=== PATIENT | male | born 1965 | race Caucasian/White ===

== ENCOUNTER 2017-03-03 21:11 | Emergency (ER) | payer OTHER ==
[~2017-03-03] VITALS: Ht 170.2 cm; Wt 96.2 kg
[~2017-03-03 21:11] MED LIST: CARVEDILOL12.5 MG PO; CLINDAMYCIN HC300 MG PO; GUAIATUSSIN AC10 ML PO; IPRAT-ALBUT 0.5-3 ML INH; LOSARTAN-HCTZ1 EAC1 PO; MELOXICAM15 MG PO; METOPROLOL SUCC25 MG PO; NORCO 5-325 TA1 EACH PO; NORVASC2.5 MG PO; TYLENOL WITH C1 EACH PO
[2017-03-03] MEDS ORDERED: LISINOPRIL20 MG PO (21:24)
[2017-03-03] MEDS ORDERED: CHANTIX1 MG PO (21:25)
--- OUTSIDE RECORDS SUMMARY | 2017-03-03 22:31 | XMS ---
Demographics + + + | Address | [address] | | | [place] [address] | + + + | Preferred Language | Unknown | + + + | Marital Status | Unknown | + + + | Anabaptism Affiliation | Unknown | + + + | Race | Unknown | + + + | Ethnic Group | Unknown | + + + Author + + + | Author | [facility] | + + + | Organization | [facility] | + + + | Address | [address] | | | [place] [address] | + + + | Phone | | + + + Care Team Providers + + + + | Care Sound Mixer Name | Role | Phone | + + + + Unavailable | Unavailable | + + + + PROBLEMS +---------+ + + +--------+ + + | Type | Condition | ICD9-CM | [id number] | Onset | Condition | SNOMED | | | | Code | Code | Dates | Status | Code | +---------+ + + +--------+ + + | Problem | Hypertensi | 401.9 | | | Active | [id number] | | | on | | | | | | +---------+ + + +--------+ + + | Problem | Hypertensi | | I10 | | Active | 32029429 | | | on | | | | | | +---------+ + + +--------+ + + | Problem | Radiculopa | 723.4 | | | Active | 67021441 | | | thy | | | | | | | | affecting | | | | | | | | upper | | | | | | | | extremity | | | | | | +---------+ + + +--------+ + + | Problem | Influenza | 487.1 | | | Active | 0473123 | +---------+ + + +--------+ + + | Problem | Tobacco | 305.1 | | | Active | 651178639 | | | use | | | | | | | | disorder | | | | | | +---------+ + + +--------+ + + | Problem | Torticolli | 723.5 | | | Active | 73140480 | | | s | | | | | | +---------+ + + +--------+ + + | Problem | Hyperlipid | 272.4 | | | Active | 16703883 | | | emia | | | | | | +---------+ + + +--------+ + + ALLERGIES No Information SOCIAL HISTORY Never Assessed PLAN OF CARE VITAL SIGNS MEDICATIONS Unknown Medications RESULTS No Results PROCEDURES No Known procedures IMMUNIZATIONS No Known Immunizations MEDICAL (GENERAL) HISTORY + + +---------+ | Type | Description | Date | + + +---------+ | Medical History | The past medical history of | | | | this patient is very | | | | benign. He denies any major | | | | diseases. He states that | | | | he does not have any | | | | diabetes. He does not have | | | | any thyroid problems. He | | | | said that he is in | | | | excellent health. He is not | | | | taking any medication and | | | | he denies any allergies. 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 | | | | at one time he was on | | | | significantly higher doses | | | | after the fracture he also | | | | has a significant carpal | | | | tunnel syndrome but he is | | | | not ready at this point | | | | economically to surgery has | | | | hypertension and | | | | well-controlled on | | | | medication no cardiac or | | | | prior respiratory problems | | | | and he still smokes | | | | significantly we worked on | | | | it several times and he is | | | | working on a plan to try to | | | | quit smoking the ankle | | | | injury in stable MRI has | | | | been evaluated it's not | | | | going to change and the | | | | need for narcotics is not | | | | going to change especially | | | | 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
--- OUTSIDE RECORDS SUMMARY | 2017-03-03 22:31 | XMS ---
Demographics + + + | Address | [address] | | | [place] [address] | + + + | Preferred Language | Unknown | + + + | Marital Status | Unknown | + + + | Religion Affiliation | Unknown | + + + | Race | Unknown | + + + | Ethnic Group | Unknown | + + + Author + + + | Author | [facility] | + + + | Organization | [facility] | + + + | Address | [address] | | | [place] [address] | + + + | Phone | | + + + Care Team Providers + + + + | Care Air Compressor Mechanic Name | Role | Phone | + + + + Unavailable | Unavailable | + + + + PROBLEMS +---------+ + + +--------+ + + | Type | Condition | ICD9-CM | [id number] | Onset | Condition | SNOMED | | | | Code | Code | Dates | Status | Code | +---------+ + + +--------+ + + | Problem | Hypertensi | 401.9 | | | Active | [id number] | | | on | | | | | | +---------+ + + +--------+ + + | Problem | Hypertensi | | I10 | | Active | 95962414 | | | on | | | | | | +---------+ + + +--------+ + + | Problem | Radiculopa | 723.4 | | | Active | 58819167 | | | thy | | | | | | | | affecting | | | | | | | | upper | | | | | | | | extremity | | | | | | +---------+ + + +--------+ + + | Problem | Influenza | 487.1 | | | Active | 7517416 | +---------+ + + +--------+ + + | Problem | Tobacco | 305.1 | | | Active | 460791293 | | | use | | | | | | | | disorder | | | | | | +---------+ + + +--------+ + + | Problem | Torticolli | 723.5 | | | Active | 46463544 | | | s | | | | | | +---------+ + + +--------+ + + | Problem | Hyperlipid | 272.4 | | | Active | 04048143 | | | emia | | | | | | +---------+ + + +--------+ + + ALLERGIES + + + + +--------+ | Substance | Reaction | Event Type | Date | Status | + + + + +--------+ | Atorvastatin | hands hurt | Drug Allergy | Nov, | Active | | Calcium | | | | | + + + + +--------+ | Aspirin | hives | Drug Allergy | Nov, | Active | + + + + +--------+ SOCIAL HISTORY No smoking Hx information available PLAN OF CARE + +---------+ | Activity | Details | + +---------+ +---+ | | +---+ + + + | Follow Up | 4 Weeks Reason:null | + + + VITAL SIGNS + + + + | Height | 67 in | 2016-12-08 | + + + + | Weight | 207.8 lbs | 2016-12-08 | + + + + | BMI | 32.54 kg/m2 | 2016-12-08 | + + + + | Temperature | 97.1 degrees Fahrenheit | 2016-12-08 | + + + + | Heart Rate | 76 /min | 2016-12-08 | + + + + | Blood pressure systolic | 124 mm Hg | 2016-12-08 | + + + + | Blood pressure diastolic | 75 mm Hg | 2016-12-08 | + + + + MEDICATIONS + + + + + + + +--------+ | Medicati | Instruct | Dosage | Frequenc | Start | End Date | Duration | Status | | on | ions | | y | Date | | | | + + + + + + + +--------+ | Lisinopr | Orally | 1 tablet | 24h | 10 Feb, | | 30 | Active | | il 40 MG | Once a | | | 2017 | | day(s) | | | | day | | | | | | | + + + + + + + +--------+ | Meloxica | | take 1 | | | | 30 | Active | | m 15 MG | | tablet | | | | | | | | | by mouth | | | | | | | | | once | | | | | | | | | daily | | | | | | + + + + + + + +--------+ | Tylenol | Orally | 1 or 2 | | 20 Ricardo, | | 30 | Active | | with | hs | tabs | | 2015 | | | | | Codeine | | | | | | | | | #3 | | | | | | | | | 300-30 | | | | | | | | | MG | | | | | | | | + + + + + + + +--------+ | Metoprol | Orally | 1 tab(s) | 12h | 10 Jun, | | 30 | Active | | ol | bid | | | 2016 | | day(s) | | | Tartrate | | | | | | | | | 50 MG | | | | | | | | + + + + + + + +--------+ RESULTS No Results PROCEDURES + + + + + | Procedure | Date Ordered | Related Diagnosis | Body Site | + + + + + | Est Level II | December 08, 2016 | | | | Limited | | | | + + + + + IMMUNIZATIONS No Known Immunizations"
--- OUTSIDE RECORDS SUMMARY | 2017-03-03 22:31 | XMS ---
Demographics + + + | Address | [address] | | | [place] [address] | + + + | Preferred Language | Unknown | + + + | Marital Status | Unknown | + + + | Christianity Affiliation | Unknown | + + + | Race | Unknown | + + + | Ethnic Group | Unknown | + + + Author + + + | Author | [facility] | + + + | Organization | [facility] | + + + | Address | [address] | | | [place] [address] | + + + | Phone | | + + + Care Team Providers + + + + | Care Business Rules Analyst Name | Role | Phone | + + + + Unavailable | Unavailable | + + + + PROBLEMS +---------+ + + +--------+ + + | Type | Condition | ICD9-CM | [id number] | Onset | Condition | SNOMED | | | | Code | Code | Dates | Status | Code | +---------+ + + +--------+ + + | Problem | Hypertensi | 401.9 | | | Active | [id number] | | | on | | | | | | +---------+ + + +--------+ + + | Problem | Hypertensi | | I10 | | Active | 76411495 | | | on | | | | | | +---------+ + + +--------+ + + | Problem | Radiculopa | 723.4 | | | Active | 04046288 | | | thy | | | | | | | | affecting | | | | | | | | upper | | | | | | | | extremity | | | | | | +---------+ + + +--------+ + + | Problem | Influenza | 487.1 | | | Active | 3579969 | +---------+ + + +--------+ + + | Problem | Tobacco | 305.1 | | | Active | 318235009 | | | use | | | | | | | | disorder | | | | | | +---------+ + + +--------+ + + | Problem | Torticolli | 723.5 | | | Active | 64809475 | | | s | | | | | | +---------+ + + +--------+ + + | Problem | Hyperlipid | 272.4 | | | Active | 57115231 | | | emia | | | | | | +---------+ + + +--------+ + + ALLERGIES + + + + +--------+ | Substance | Reaction | Event Type | Date | Status | + + + + +--------+ | Atorvastatin | hands hurt | Drug Allergy | Dec, | Active | | Calcium | | | | | + + + + +--------+ | Aspirin | hives | Drug Allergy | Dec, | Active | + + + + +--------+ SOCIAL HISTORY No smoking Hx information available PLAN OF CARE + +---------+ | Activity | Details | + +---------+ +---+ | | +---+ + + + | Follow Up | 3 Months Reason:null | + + + VITAL SIGNS + + + + | Height | 67 in | 2017-01-04 | + + + + | Weight | 209.4 lbs | 2017-01-04 | + + + + | BMI | 32.79 kg/m2 | 2017-01-04 | + + + + | Temperature | 98.4 degrees Fahrenheit | 2017-01-04 | + + + + | Heart Rate | 90 /min | 2017-01-04 | + + + + | Blood pressure systolic | 96 mm Hg | 2017-01-04 | + + + + | Blood pressure diastolic | 68 mm Hg | 2017-01-04 | + + + + MEDICATIONS + + + + + + + +--------+ | Medicati | Instruct | Dosage | Frequenc | Start | End Date | Duration | Status | | on | ions | | y | Date | | | | + + + + + + + +--------+ | Chantix | Orally | 1 q day | | Dec, | | 30 | Active | | Starting | as | x 15 | | 2016 | | | | | Month | directed | then 1 | | | | | | | Robert 0.5 | | bid | | | | | | | MG X 11 | | | | | | | | | & 1 MG X | | | | | | | | | 42 | | | | | | | | + + + + + + + +--------+ | Tylenol | Orally | 1 or 2 | | 20 Nov, | | 30 | Active | | [...] | 1 tab(s) | 12h | 10 Feb, | | 30 | Active | | ol | bid | | | 2017 | | day(s) | | | Tartrate | | | | | | | | | 50 MG | | | | | | | | + + + + + + + +--------+ | Meloxica | po q day | take 1 | | | | [...] | 30 | Active | | il 20 MG | Once a | | | 2017 | | | | | | day | | | | | | | + + + + + + + +--------+ RESULTS No Results PROCEDURES No Known procedures IMMUNIZATIONS No Known Immunizations"
--- OUTSIDE RECORDS SUMMARY | 2017-03-03 22:31 | XMS ---
Demographics + + + | Address | [address] | | | [place] [address] | + + + | Preferred Language | Unknown | + + + | Marital Status | Unknown | + + + | Taoist Affiliation | Unknown | + + + | Race | Unknown | + + + | Ethnic Group | Unknown | + + + Author + + + | Author | [facility] | + + + | Organization | [facility] | + + + | Address | [address] | | | [place] [address] | + + + | Phone | | + + + Care Team Providers + + + + | Care Director Cardiac Name | Role | Phone | + + + + Unavailable | Unavailable | + + + + PROBLEMS +---------+ + + +--------+ + + | Type | Condition | ICD9-CM | [id number] | Onset | Condition | SNOMED | | | | Code | Code | Dates | Status | Code | +---------+ + + +--------+ + + | Problem | Hypertensi | 401.9 | | | Active | 48538463 | | | on | | | | | | +---------+ + + +--------+ + + | Problem | Hypertensi | | I10 | | Active | 36145315 | | | on | | | | | | +---------+ + + +--------+ + + | Problem | Radiculopa | 723.4 | | | Active | 38543119 | | | thy | | | | | | | | affecting | | | | | | | | upper | | | | | | | | extremity | | | | | | +---------+ + + +--------+ + + | Problem | Influenza | 487.1 | | | Active | 4263457 | +---------+ + + +--------+ + + | Problem | Tobacco | 305.1 | | | Active | 951322534 | | | use | | | | | | | | disorder | | | | | | +---------+ + + +--------+ + + | Problem | Torticolli | 723.5 | | | Active | 62581370 | | | s | | | | | | +---------+ + + +--------+ + + | Problem | Hyperlipid | 272.4 | | | Active | 39684894 | | | emia | | | [...] | | | been restricted to 30 Peak | | | | a month one [...]
--- OUTSIDE RECORDS SUMMARY | 2017-03-03 22:31 | XMS ---
Demographics + + + | Address | [address] | | | [place] [address] | + + + | Preferred Language | Unknown | + + + | Marital Status | Unknown | + + + | Denominational Affiliation | Unknown | + + + | Race | Unknown | + + + | Ethnic Group | Unknown | + + + Author + + + | Author | [facility] | + + + | Organization | [facility] | + + + | Address | [address] | | | [place] [address] | + + + | Phone | | + + + Care Team Providers + + + + | Care Software Technician Name | Role | Phone | + + + + Unavailable | Unavailable | + + + + PROBLEMS +---------+ + + +--------+ + + | Type | Condition | ICD9-CM | [id number] | Onset | Condition | SNOMED | | | | Code | Code | Dates | Status | Code | +---------+ + + +--------+ + + | Problem | Hypertensi | 401.9 | | | Active | 17560740 | | | on | | | | | | +---------+ + + +--------+ + + | Problem | Hypertensi | | I10 | | Active | 22664451 | | | on | | | | | | +---------+ + + +--------+ + + | Problem | Radiculopa | 723.4 | | | Active | 85515184 | | | thy | | | | | | | | affecting | | | | | | | | upper | | | | | | | | extremity | | | | | | +---------+ + + +--------+ + + | Problem | Influenza | 487.1 | | | Active | 0114858 | +---------+ + + +--------+ + + | Problem | Tobacco | 305.1 | | | Active | 093683724 | | | use | | | | | | | | disorder | | | | | | +---------+ + + +--------+ + + | Problem | Torticolli | 723.5 | | | Active | 91683039 | | | s | | | | | | +---------+ + + +--------+ + + | Problem | Hyperlipid | 272.4 | | | Active | 90309198 | | | emia | | | | | | +---------+ + + +--------+ + + ALLERGIES + + + + +--------+ | Substance | Reaction | Event Type | Date | Status | + + + + +--------+ | Atorvastatin | hands hurt | Drug Allergy | Oct, | Active | | Calcium | | | | | + + + + +--------+ | Aspirin | hives | Drug Allergy | Oct, | Active | + + + + +--------+ SOCIAL HISTORY No smoking Hx information available PLAN OF CARE + +---------+ | Activity | Details | + +---------+ +---+ | | +---+ + + + | Follow Up | 4 Weeks Reason:null | + + + VITAL SIGNS + + + + | Height | 67 in | 2016-11-08 | + + + + | Weight | 210.2 lbs | 2016-11-08 | + + + + | BMI | 32.92 kg/m2 | 2016-11-08 | + + + + | Temperature | 98.5 degrees Fahrenheit | 2016-11-08 | + + + + | Heart Rate | 62 /min | 2016-11-08 | + + + + | Blood pressure systolic | 147 mm Hg | 2016-11-08 | + + + + | Blood pressure diastolic | 83 mm Hg | 2016-11-08 | + + + + MEDICATIONS + [...] + + + + + +--------+ | Nebulize | | | | | | | Active | | r | | | | | | | [...]
--- OUTSIDE RECORDS SUMMARY | 2017-03-03 22:31 | XMS ---
Demographics + + + | Address | [address] | | | [place] [address] | + + + | Preferred Language | Unknown | + + + | Marital Status | Unknown | + + + | Methodist Affiliation | Unknown | + + + | Race | Unknown | + + + | Ethnic Group | Unknown | + + + Author + + + | Author | [facility] | + + + | Organization | [facility] | + + + | Address | [address] | | | [place] [address] | + + + | Phone | | + + + Care Team Providers + + + + | Care Party Host Name | Role | Phone | + + + + Unavailable | Unavailable | + + + + PROBLEMS +---------+ + + +--------+ + + | Type | Condition | ICD9-CM | [id number] | Onset | Condition | SNOMED | | | | Code | Code | Dates | Status | Code | +---------+ + + +--------+ + + | Problem | Hypertensi | 401.9 | | | Active | 97860111 | | | on | | | | | | +---------+ + + +--------+ + + | Problem | Hypertensi | | I10 | | Active | 81905089 | | | on | | | | | | +---------+ + + +--------+ + + | Problem | Radiculopa | 723.4 | | | Active | 43008113 | | | thy | | | | | | | | affecting | | | | | | | | upper | | | | | | | | extremity | | | | | | +---------+ + + +--------+ + + | Problem | Influenza | 487.1 | | | Active | 4750159 | +---------+ + + +--------+ + + | Problem | Tobacco | 305.1 | | | Active | 194019761 | | | use | | | | | | | | disorder | | | | | | +---------+ + + +--------+ + + | Problem | Torticolli | 723.5 | | | Active | 21559548 | | | s | | | | | | +---------+ + + +--------+ + + | Problem | Hyperlipid | 272.4 | | | Active | 35236033 | | | emia | | | [...] + | Height | 67 in | 2016-12-26 | + + + + | Weight | 210.2 lbs | 2016-12-26 | + + + + | BMI | 32.92 kg/m2 | 2016-12-26 | + + + + | Temperature | 98.4 degrees Fahrenheit | 2016-12-26 | + + + + | Heart Rate | 92 /min | 2016-12-26 | + + + + | Blood pressure systolic | 122 mm Hg | 2016-12-26 | + + + + | Blood pressure diastolic | 72 mm Hg | 2016-12-26 | + + + + MEDICATIONS + [...] MG | Once a | | | 2016 | | day(s) | | | | [...] + + + + + +--------+ RESULTS + +--------+ + + | Name | Result | Date | Reference Range | + +--------+ + + | Sedimentation | | 2016-12-29 | | | Rate-Westergren | | | | + +--------+ + + | Sedimentation | | | | | Rate-Westergren | | | | + +--------+ + + | Comp. Metabolic | | 2016-12-29 | | | Panel (14) | | | | + +--------+ + + | Calcium, Serum | | | | + +--------+ + + | Glucose, Serum | | | | + +--------+ + + | BUN | | | | + +--------+ + + | Protein, Total, | | | | | Serum | | | | + +--------+ + + | Albumin, Serum | | | | + +--------+ + + | Bilirubin, Total | | | | + +--------+ + + | Alkaline | | | | | Phosphatase, S | | | | + +--------+ + + | AST (SGOT) | | | | + +--------+ + + | Potassium, Serum | | | | + +--------+ + + | Sodium, Serum | | | | + +--------+ + + | Chloride, Serum | | | | + +--------+ + + | Creatinine, Serum | | | | + +--------+ + + | ALT (SGPT) | | | | + +--------+ + + | Carbon Dioxide, | | | | | Total | | | | + +--------+ + + | BUN/Creatinine | | | | | Ratio | | | | + +--------+ + + | Globulin, Total | | | | + +--------+ + + | A/G Ratio | | | | + +--------+ + + | TSH, 3rd Generation | | 2016-12-29 | | + +--------+ + + | TSH, 3RD GENERATION | | | | + +--------+ + + | Urine Drug Screen, | | 2016-12-29 | | | Medical | | | | + +--------+ + + | cbc | | 2016-12-29 | | + +--------+ + + PROCEDURES No Known procedures IMMUNIZATIONS No Known Immunizations"
--- OUTSIDE RECORDS SUMMARY | 2017-03-03 22:31 | XMS ---
Demographics + + + | Address | [address] | | | [place] [address] | + + + | Preferred Language | Unknown | + + + | Marital Status | Unknown | + + + | Yarsani Affiliation | Unknown | + + + | Race | Unknown | + + + | Ethnic Group | Unknown | + + + Author + + + | Author | [facility] | + + + | Organization | [facility] | + + + | Address | [address] | | | [place] [address] | + + + | Phone | | + + + Care Team Providers + + + + | Care Board Finisher Name | Role | Phone | + + + + Unavailable | Unavailable | + + + + PROBLEMS +---------+ + + +--------+ + + | Type | Condition | ICD9-CM | [id number] | Onset | Condition | SNOMED | | | | Code | Code | Dates | Status | Code | +---------+ + + +--------+ + + | Problem | Hypertensi | 401.9 | | | Active | [id number] | | | on | | | | | | +---------+ + + +--------+ + + | Problem | Hypertensi | | I10 | | Active | 08787899 | | | on | | | | | | +---------+ + + +--------+ + + | Problem | Radiculopa | 723.4 | | | Active | 30967983 | | | thy | | | | | | | | affecting | | | | | | | | upper | | | | | | | | extremity | | | | | | +---------+ + + +--------+ + + | Problem | Influenza | 487.1 | | | Active | 2784348 | +---------+ + + +--------+ + + | Problem | Tobacco | 305.1 | | | Active | 315947823 | | | use | | | | | | | | disorder | | | | | | +---------+ + + +--------+ + + | Problem | Torticolli | 723.5 | | | Active | 86536127 | | | s | | | | | | +---------+ + + +--------+ + + | Problem | Hyperlipid | 272.4 | | | Active | 76997544 | | | emia | | | | | | +---------+ + + +--------+ + + ALLERGIES Unknown Allergies SOCIAL HISTORY No smoking Hx information available PLAN OF CARE VITAL SIGNS MEDICATIONS Unknown Medications RESULTS No Results PROCEDURES No Known procedures IMMUNIZATIONS No Known Immunizations"
--- OUTSIDE RECORDS SUMMARY | 2017-03-03 22:31 | XMS ---
Demographics + + + | Address | [address] | | | [place] [address] | + + + | Preferred Language | Unknown | + + + | Marital Status | Unknown | + + + | Nondenominational Affiliation | Unknown | + + + | Race | Unknown | + + + | Ethnic Group | Unknown | + + + Author + + + | Author | [facility] | + + + | Organization | [facility] | + + + | Address | [address] | | | [place] [address] | + + + | Phone | | + + + Care Team Providers + + + + | Care Local Announcer Name | Role | Phone | + + + + Unavailable | Unavailable | + + + + PROBLEMS + + + + + + + + | Type | Condition | ICD9-CM | [id number] | Onset | Condition | SNOMED | | | | Code | Code | Dates | Status | Code | + + + + + + + + | Assessment | Sequelae | S09.90XS | | Aug, | Active | 55168727 | | | of injury | | | 2016 | | | | | of head | | | | | | + + + + + + + + | Problem | Hypertensi | 401.9 | | | Active | 53783215 | | | on | | | | | | + + + + + + + + | Assessment | Hearing | H91.90 | | 06 Aug, | Active | 04094076 | | | loss | | | 2016 | | | + + + + + + + + | Problem | Hypertensi | | I10 | | Active | 20565422 | | | on | | | | | | + + + + + + + + | Problem | Radiculopa | 723.4 | | | Active | 14963951 | | | thy | | | | | | | | affecting | | | | | | | | upper | | | | | | | | extremity | | | | | | + + + + + + + + | Problem | Influenza | 487.1 | | | Active | 3749306 | + + + + + + + + | Problem | Tobacco | 305.1 | | | Active | 905154135 | | | use | | | | | | | | disorder | | | | | | + + + + + + + + | Problem | Torticolli | 723.5 | | | Active | 85882829 | | | s | | | | | | + + + + + + + + | Problem | Hyperlipid | 272.4 | | | Active | 56977056 | | | emia | | | | | | + + + + + + + + ALLERGIES + + + + +--------+ | Substance | Reaction | Event Type | Date | Status | + + + + +--------+ | Atorvastatin | hands hurt | Drug Allergy | Aug, | Active | | Calcium | | | | | + + + + +--------+ | Aspirin | hives | Drug Allergy | Aug, | Active | + + + + +--------+ SOCIAL HISTORY No smoking Hx information available PLAN OF CARE VITAL SIGNS + + + + | Height | 67 in | 2016-08-24 | + + + + | Weight | 202 lbs | 2016-08-24 | + + + + | BMI | 31.63 kg/m2 | 2016-08-24 | + + + + | Heart Rate | 87 /min | 2016-08-24 | + + + + | Blood pressure systolic | 142 mm Hg | 2016-08-24 | + + + + | Blood pressure diastolic | 81 mm Hg | 2016-08-24 | + + + + MEDICATIONS + [...] + + + + + +--------+ | Cold | | | | | | | Active | | Medicine | | | | | | | | | Plus | | | | | | | | | 2-30-325 | | | | | | | [...] with | hs | tabs | | 2016 | | | | | Codeine | [...] + + | Est Level II | August 24, 2016 | | | | Limited | | | | + + + + + IMMUNIZATIONS No Known Immunizations"
--- OUTSIDE RECORDS SUMMARY | 2017-03-03 22:31 | XMS ---
Demographics + + + | Address | [address] | | | [place] [address] | + + + | Preferred Language [...] | + + + | Organization | [facility] | + + + | Address | [address] | | | [place] [address] | + + + | Phone | | + + + Care Team Providers + + + + | Care Farm Operations Manager Name | Role | Phone | + + + + Unavailable | Unavailable | + + + + PROBLEMS +---------+ + + +--------+ + + | Type | Condition | ICD9-CM | [id number] | Onset | Condition | SNOMED | | | | Code | Code | Dates | Status | Code | +---------+ + + +--------+ + + | Problem | Hypertensi | 401.9 | | | Active | [id number] | | | on | | | | | | +---------+ + + +--------+ + + | Problem | Hypertensi | | I10 | | Active | 11596232 | | | on | | | | | | +---------+ + + +--------+ + + | Problem | Radiculopa | 723.4 | | | Active | 90596905 | | | thy | | | | | | | | affecting | | | | | | | | upper | | | | | | | | extremity | | | | | | +---------+ + + +--------+ + + | Problem | Influenza | 487.1 | | | Active | 1974220 | +---------+ + + +--------+ + + | Problem | Tobacco | 305.1 | | | Active | 048332633 | | | use | | | | | | | | disorder | | | | | | +---------+ + + +--------+ + + | Problem | Torticolli | 723.5 | | | Active | 67078503 | | | s | | | | | | +---------+ + + +--------+ + + | Problem | Hyperlipid | 272.4 | | | Active | 90827028 | | | emia | | | [...] | | | been restricted to 30 [place] | | | | a month one [...]
--- OUTSIDE RECORDS SUMMARY | 2017-03-03 22:32 | XMS ---
Demographics + + + | Address | [address] | | | [place] [address] | + + + | Preferred Language | Unknown | + + + | Marital Status | Unknown | + + + | Anabaptist Affiliation | Unknown | + + + | Race | Unknown | + + + | Ethnic Group | Unknown | + + + Author + + + | Author | [facility] | + + + | Organization | [facility] | + + + | Address | [address] | | | [place] [address] | + + + | Phone | | + + + Care Team Providers + + + + | Care Informatics Analyst Name | Role | Phone | + + + + Unavailable | Unavailable | + + + + PROBLEMS + + + + + + + + | Type | Condition | ICD9-CM | [id number] | Onset | Condition | SNOMED | | | | Code | Code | Dates | Status | Code | + + + + + + + + | Assessment | Sequelae | S09.90XS | | 06 October, | Active | 98077618 | | | of injury | | | 2016 | | | | | of head | | | | | | + + + + + + + + | Problem | Hypertensi | 401.9 | | | Active | 70736560 | | | on | | | | | | + + + + + + + + | Assessment | Hearing | H91.92 | | 06 October, | Active | [id number] | | | loss in | | | 2016 | | 576812 | | | left ear | | | | | | + + + + + + + + | Problem | Hypertensi | | I10 | | Active | 70102126 | | | on | | | | | | + + + + + + + + | Problem | Radiculopa | 723.4 | | | Active | 52755420 | | | thy | | | | | | | | affecting | | | | | | | | upper | | | | | | | | extremity | | | | | | + + + + + + + + | Problem | Influenza | 487.1 | | | Active | 2007188 | + + + + + + + + | Problem | Tobacco | 305.1 | | | Active | 641960671 | | | use | | | | | | | | disorder | | | | | | + + + + + + + + | Problem | Torticolli | 723.5 | | | Active | 05274642 | | | s | | | | | | + + + + + + + + | Problem | Hyperlipid | 272.4 | | | Active | 07587974 | | | emia | | | | | | + + + + + + + + ALLERGIES + + + + +--------+ | Substance | Reaction | Event Type | Date | Status | + + + + +--------+ | Atorvastatin | hands hurt | Drug Allergy | September, | Active | | Calcium | | | | | + + + + +--------+ | Aspirin | hives | Drug Allergy | September, | Active | + + + + +--------+ SOCIAL HISTORY No smoking Hx information available PLAN OF CARE VITAL SIGNS + + + + | Height | 67 in | 2016-10-06 | + + + + | Weight | 206.8 lbs | 2016-10-06 | + + + + | BMI | 32.39 kg/m2 | 2016-10-06 | + + + + | Heart Rate | 55 /min | 2016-10-06 | + + + + | Blood pressure systolic | 143 mm Hg | 2016-10-06 | + + + + | Blood pressure diastolic | 81 mm Hg | 2016-10-06 | + + + + MEDICATIONS + [...] + + + + | Est Level III | October 06, 2016 | | | | Intermediate | | | | + + + + + IMMUNIZATIONS No Known Immunizations"
--- OUTSIDE RECORDS SUMMARY | 2017-03-03 22:32 | XMS ---
Demographics + + + | Address | [address] | | | [place] [address] | + + + | Preferred Language | Unknown | + + + | Marital Status | Unknown | + + + | Rastafari Affiliation | Unknown | + + + | Race | Unknown | + + + | Ethnic Group | Unknown | + + + Author + + + | Author | [facility] | + + + | Organization | [facility] | + + + | Address | [address] | | | [place] [address] | + + + | Phone | | + + + Care Team Providers + + + + | Care Underground Roof Bolter Name | Role | Phone | + + + + Unavailable | Unavailable | + + + + PROBLEMS +---------+ + + +--------+ + + | Type | Condition | ICD9-CM | PIH68-[id number] | Onset | Condition | SNOMED | | | | Code | Code | Dates | Status | Code | +---------+ + + +--------+ + + | Problem | Hypertensi | 401.9 | | | Active | [id number] | | | on | | | | | | +---------+ + + +--------+ + + | Problem | Hypertensi | | I10 | | Active | 67376250 | | | on | | | | | | +---------+ + + +--------+ + + | Problem | Radiculopa | 723.4 | | | Active | 49237944 | | | thy | | | | | | | | affecting | | | | | | | | upper | | | | | | | | extremity | | | | | | +---------+ + + +--------+ + + | Problem | Influenza | 487.1 | | | Active | 5878748 | +---------+ + + +--------+ + + | Problem | Tobacco | 305.1 | | | Active | 481402962 | | | use | | | | | | | | disorder | | | | | | +---------+ + + +--------+ + + | Problem | Torticolli | 723.5 | | | Active | 83525444 | | | s | | | | | | +---------+ + + +--------+ + + | Problem | Hyperlipid | 272.4 | | | Active | 83237159 | | | emia | | | | | | +---------+ + + +--------+ + + ALLERGIES Unknown Allergies SOCIAL HISTORY No smoking Hx information available PLAN OF CARE VITAL SIGNS MEDICATIONS + + + + + + + +--------+ | Medicati | Instruct | Dosage | Frequenc | Start | End Date | Duration | Status | | on | ions | | y | Date | | | | + + + + + + + +--------+ | Chantix | Orally | 1 tablet | 12h | 06 Jan, | 6 Feb, | 30 | Active | | Continui | Twice a | | | 2017 | 2017 | day(s) | | | ng Month | day | | | | | | | | Robert 1 | | | | | | | | | MG | | | | | | | | + + + + + + + +--------+ RESULTS No Results PROCEDURES No Known procedures IMMUNIZATIONS No Known Immunizations"
--- OUTSIDE RECORDS SUMMARY | 2017-03-03 22:32 | XMS ---
Demographics + + + | Address | [address] | | | [place] [address] | + + + | Preferred Language | Unknown | + + + | Marital Status | Unknown | + + + | Advent Affiliation | Unknown | + + + | Race | Unknown | + + + | Ethnic Group | Unknown | + + + Author + + + | Author | [facility] | + + + | Organization | [facility] | + + + | Address | [address] | | | [place] [address] | + + + | Phone | | + + + Care Team Providers + + + + | Care Clinical Operations Manager Name | Role | Phone | + + + + Unavailable | Unavailable | + + + + PROBLEMS +---------+ + + +--------+ + + | Type | Condition | ICD9-CM | [id number] | Onset | Condition | SNOMED | | | | Code | Code | Dates | Status | Code | +---------+ + + +--------+ + + | Problem | Hypertensi | 401.9 | | | Active | [id number] | | | on | | | | | | +---------+ + + +--------+ + + | Problem | Hypertensi | | I10 | | Active | 62606395 | | | on | | | | | | +---------+ + + +--------+ + + | Problem | Radiculopa | 723.4 | | | Active | 13952146 | | | thy | | | | | | | | affecting | | | | | | | | upper | | | | | | | | extremity | | | | | | +---------+ + + +--------+ + + | Problem | Influenza | 487.1 | | | Active | 3020402 | +---------+ + + +--------+ + + | Problem | Tobacco | 305.1 | | | Active | 146572293 | | | use | | | | | | | | disorder | | | | | | +---------+ + + +--------+ + + | Problem | Torticolli | 723.5 | | | Active | 99607995 | | | s | | | | | | +---------+ + + +--------+ + + | Problem | Hyperlipid | 272.4 | | | Active | 52691741 | | | emia | | | | | | +---------+ + + +--------+ + + ALLERGIES + + + + +--------+ | Substance | Reaction | Event Type | Date | Status | + + + + +--------+ | Atorvastatin | hands hurt | Drug Allergy | Jan, | Active | | Calcium | | | | | + + + + +--------+ | Aspirin | hives | Drug Allergy | Jan, | Active | + + + + +--------+ SOCIAL HISTORY Never Assessed PLAN OF CARE + +---------+ | Activity | Details | + +---------+ +---+ | | +---+ + + + | Follow Up | as scheduled with PCP Reason:null | + + + VITAL SIGNS + + + + | Height | 67 in | 2017-02-05 | + + + + | Weight | 212.4 lbs | 2017-02-05 | + + + + | BMI | 33.26 kg/m2 | 2017-02-05 | + + + + | Temperature | 97.8 degrees Fahrenheit | 2017-02-05 | + + + + | Heart Rate | 65 /min | 2017-02-05 | + + + + | Blood pressure systolic | 123 mm Hg | 2017-02-05 | + + + + | Blood pressure diastolic | 89 mm Hg | 2017-02-05 | + + + + MEDICATIONS + [...] + + + +--------+ | Chantix | | take by | | | | 28 | Active | | Starting | | mouth as | | | | | | | Month | | | | | | | | | Robert 0.5 | | directed | | | | | | | MG X 11 | | PER | | | | | | | & 1 MG X | | PACKAGE | | | | | | | 42 | | DIRECTIO | | | | | | | | | NS | | | | | | + + + + + + + +--------+ | Chantix | Orally | 1 tablet | 12h | 06 Jan, | 6 Oct, | 30 | Active | | Continui [...] | | | first assumed care in | | | | 2015 age narcotic use has | | | | been restricted to 30 [place] | | | | a month one [...]
--- OUTSIDE RECORDS SUMMARY | 2017-03-03 22:32 | XMS ---
Demographics + + + | Address | [address] | | | [place] [address] | + + + | Preferred Language | Unknown | + + + | Marital Status | Unknown | + + + | Samaritan Affiliation | Unknown | + + + | Race | Unknown | + + + | Ethnic Group | Unknown | + + + Author + + + | Author | [facility] | + + + | Organization | [facility] | + + + | Address | [address] | | | [place] [address] | + + + | Phone | | + + + Care Team Providers + + + + | Care Monotype Machinist Name | Role | Phone | + + + + Unavailable | Unavailable | + + + + PROBLEMS +---------+ + + +--------+ + + | Type | Condition | ICD9-CM | [id number] | Onset | Condition | SNOMED | | | | Code | Code | Dates | Status | Code | +---------+ + + +--------+ + + | Problem | Hypertensi | 401.9 | | | Active | [id number] | | | on | | | | | | +---------+ + + +--------+ + + | Problem | Hypertensi | | I10 | | Active | 00075451 | | | on | | | | | | +---------+ + + +--------+ + + | Problem | Radiculopa | 723.4 | | | Active | 43387345 | | | thy | | | | | | | | affecting | | | | | | | | upper | | | | | | | | extremity | | | | | | +---------+ + + +--------+ + + | Problem | Influenza | 487.1 | | | Active | 1929048 | +---------+ + + +--------+ + + | Problem | Tobacco | 305.1 | | | Active | 433618117 | | | use | | | | | | | | disorder | | | | | | +---------+ + + +--------+ + + | Problem | Torticolli | 723.5 | | | Active | 99601609 | | | s | | | | | | +---------+ + + +--------+ + + | Problem | Hyperlipid | 272.4 | | | Active | 97592574 | | | emia | | | [...]
--- OUTSIDE RECORDS SUMMARY | 2017-03-03 22:32 | XMS ---
Demographics + + + | Address | [address] | | | [place] [address] | + + + | Preferred Language | Unknown | + + + | Marital Status | Unknown | + + + | Hinduism Affiliation | Unknown | + + + | Race | Unknown | + + + | Ethnic Group | Unknown | + + + Author + + + | Author | [facility] | + + + | Organization | [facility] | + + + | Address | [address] | | | [place] [address] | + + + | Phone | | + + + Care Team Providers + + + + | Care Auditing Specialist Name | Role | Phone | + + + + Unavailable | Unavailable | + + + + PROBLEMS +---------+ + + +--------+ + + | Type | Condition | ICD9-CM | [id number] | Onset | Condition | SNOMED | | | | Code | Code | Dates | Status | Code | +---------+ + + +--------+ + + | Problem | Hypertensi | 401.9 | | | Active | [id number] | | | on | | | | | | +---------+ + + +--------+ + + | Problem | Hypertensi | | I10 | | Active | 17392290 | | | on | | | | | | +---------+ + + +--------+ + + | Problem | Radiculopa | 723.4 | | | Active | 90263392 | | | thy | | | | | | | | affecting | | | | | | | | upper | | | | | | | | extremity | | | | | | +---------+ + + +--------+ + + | Problem | Influenza | 487.1 | | | Active | 6520955 | +---------+ + + +--------+ + + | Problem | Tobacco | 305.1 | | | Active | 364207833 | | | use | | | | | | | | disorder | | | | | | +---------+ + + +--------+ + + | Problem | Torticolli | 723.5 | | | Active | 08678792 | | | s | | | | | | +---------+ + + +--------+ + + | Problem | Hyperlipid | 272.4 | | | Active | 15153979 | | | emia | | | [...] + | Height | 67 in | 2017-01-25 | + + + + | Weight | 211.4 lbs | 2017-01-25 | + + + + | BMI | 33.11 kg/m2 | 2017-01-25 | + + + + | Temperature | 98.2 degrees Fahrenheit | 2017-01-25 | + + + + | Heart Rate | 63 /min | 2017-01-25 | + + + + | Blood pressure systolic | 130 mm Hg | 2017-01-25 | + + + + | Blood pressure diastolic | 75 mm Hg | 2017-01-25 | + + + + MEDICATIONS + [...] | 1 tablet | 24h | 10 Jun, | | 30 | Active | | il 20 MG | Once a | | | 2016 | | | | | | day [...] Continui | Twice a | | | 2016 | 2016 | day(s) | | | ng Month [...] | | | | | | | Robret 0.5 | | directed | | | [...] | | | been restricted to 30 [place] | | | | a month one [...]
[2017-03-03] MEDS ORDERED: PREDNISONE20 MG PO (23:04)
--- NOTE | 2017-03-04 16:35 | EKG ---
[facility] [address] [facility] [place] [address] Signed Normal sinus rhythm Normal ECG No previous ECGs available Confirmed by MAY BRYANT MD ([id number]) on 03/04/2017 4:35:05 PM Electronically Signed By: MAY BRYANT MD 03/04/17 1635 PATIENT NAME: LANA GOODMAN Electrocardiogram DATE OF : 63 PHYSICIAN: MAY BRYANT MD REPORT #: [id number] REPORT IS CONFIDENTIAL AND NOT TO BE RELEASED WITHOUT AUTHORIZATION
[2017-03-07] MEDS ORDERED: PREDNISONE20 MG PO (20:31)
== END 2017-03-03 23:34 | disposition home or self-care (01) ==
LOC: ED 21:11
DX: J20.9 Acute bronchitis, unspecified (principal); I10 Essential (primary) hypertension; Z87.891 Personal history of nicotine dependence; Z88.6 Allergy status to analgesic agent; Z88.0 Allergy status to penicillin; Z79.899 Other long term (current) drug therapy
CPT/HCPCS: 71020; 80053; 83735; 84484; 85025; 93005; 93010; 94640; 94644; 96361; 96374; 99284; J2930; J7030

== ENCOUNTER 2020-01-26 21:57 | Emergency (ER) | payer OTHER ==
[~2020-01-26] VITALS: Ht 170.2 cm; Wt 96.6 kg
--- OUTSIDE RECORDS SUMMARY | ~2020-01-26 | XMS | Encounter Summary ---
Demographics + + + | Address | [address] | | | [place] [address] | + + + | Home Phone | | + + + | Preferred Language | Unknown | + + + | Marital Status | Unknown | + + + | Hinduism Affiliation | Unknown | + + + | Race | White | + + + | Ethnic Group | Not or | + + + Author + + + | Author | [facility] | | | and [place] | + + + | Organization | [facility] | | | and [place] | + + + | Address | Unknown | + + + | Phone | Unavailable | + + + Support + + + + + | Name | Relationship | Address | Phone | + + + + + | Majo Garnica | ECON | [address] | | | | [address], [place] | | | | | [address] | | + + + + + | Maureen Harris | ECON | Unknown | | + + + + + Care Team Providers + +------+ + | Care Fur Blowing Machine Attendant Name | Role | Phone | + +------+ + | Cece Roberts | PCP | | + +------+ + Reason for Visit Evaluate & Treat (Routine) +--------+--------+ + + + + | Status | Reason | Specialty | Diagnoses / | Referred By | Referred To | | | | | Procedures | Contact | Contact | +--------+--------+ + + + + | Closed | | Dermatology | Diagnoses | Armando, | Alfonso | | | | | Dermatitis, | ORION Graves | Dermatology | | | | | unspecified | [address] | [address] | | | | | | [address] Germain | [address] | | | | | | [place], | [place], [place] | | | | | | [place] | [address] | | | | | | [address] | Phone: | | | | | | Phone: | [phone] | | | | | | [phone] | Fax: | | | | | | Fax: | [phone] | | | | | | [phone] | | +--------+--------+ + + + + Encounter Details +--------+---------+ + + + | Date | Type | Department | Care Team | Description | +--------+---------+ + + + | 09/03/ | Office | [facility] | Keren Pelaez | Dyshidrotic eczema | | 2020 | Visit | PLASTIC SURGERY AND | [address] | (Primary Dx); | | | | DERMATOLOGY [address] | [address] | Xerosis cutis | | | | [address] | [place] [address] | | | | | [place], [place] | [phone] | | | | | [address] | | | | | | [phone] | | | +--------+---------+ + + + Social History + +-------+ +--------+ + | Tobacco Use | Types | Packs/Day | Years | Date | | | | | Used | | + +-------+ +--------+ + | Current Every Day | | 1 | 33 | Started: 11/24/1981 | | Smoker | | | | | + +-------+ +--------+ + + +---+---+---+ | Smokeless Tobacco: | | | | | Former User | | | | + +---+---+---+ + + | Tobacco Cessation: Ready to Quit: Yes; Counseling Given: Yes | | Comments: uses vape pen daily | + + + + +---------+ + | Alcohol Use | Drinks/Week | oz/Week | Comments | + + +---------+ + | Yes | 0 Standard drinks | 0.0 | on a rare occasion | | | or equivalent | | | + + +---------+ + + + + | Sex Assigned at | Date Recorded | | | | + + + | Not on file | | + + + documented as of this encounter Last Filed Vital Signs + + + + + | Vital Sign | Reading | Time Taken | Comments | + + + + + | Blood Pressure | - | - | | + + + + + | Pulse | - | - | | + + + + + | Temperature | - | - | | + + + + + | Respiratory Rate | - | - | | + + + + + | Oxygen Saturation | - | - | | + + + + + | Inhaled Oxygen | - | - | | | Concentration | | | | + + + + + | Weight | 93 kg (205 lb) | 09/04/2019 9:51 AM | | | | | PDT | | + + + + + | Height | 170.2 cm (5' 7") | 09/04/2019 9:51 AM | | | | | PDT | | + + + + + | Body Mass Index | 32.11 | 09/04/2019 9:51 AM | | | | | PDT | | + + + + + documented in this encounter Functional Status + + + + | Functional Status | Response | Date of Assessment | + + + + | Are you deaf or do you have serious | No | 11/25/2014 | | difficulty hearing? | | | + + + + | Are you blind or do you have serious | No | 11/25/2014 | | difficulty seeing, even when wearing | | | | glasses? | | | + + + + | Do you have serious difficulty walking or | No | 11/25/2014 | | climbing stairs? (5 years old or older) | | | + + + + | Do you have difficulty dressing or bathing? | No | 11/25/2014 | | (5 years old or older) | | | + + + + | Because of a physical, mental, or emotional | No | 11/25/2014 | | condition, do you have difficulty doing | | | | errands alone such as visiting a doctor's | | | | office or shopping? [15 years old or | | | | older)] | | | + + + + + + + + | Cognitive Status | Response | Date of Assessment | + + + + | Because of a physical, mental, or emotional | No | 11/25/2014 | | condition, do you have serious difficulty | | | | concentrating, remembering, or making | | | | decisions? (5 years old or older) | | | + + + + documented as of this encounter Patient Instructions Patient Instructions Frederick Sotelo, Garment Finisher - 09/04/2019 10:00 AM PDT-Discusse d treating hands and foot with betamethasone ointment, once nightly. -Discussed good barrier care. -Discussed using applying lotion or cream within 3 minutes of getting out of shower, then a pply the betamethasone to hands and foot and top with o'keefes (or vaseline or cerave ointme nt) -Can apply gloves at night (not cotton gloves) -try to apply lotion or plain vaseline each time hands are washed. Barrier Care: Soap: Dove sensitive skin Lotion:(Aveeno, Vanicream, cetaphil or cerave) as long as no color or fragrance. Best appli ed to WET skin. If second layer is necessary (Vaseline petroleum jelly) or the like Itch: 1st generation antihistamine (atarax or Benadryl) as needed for breakthrough itch. 2nd generation antihistamine: (Cetirizine or loratadine) every night Avoid possible contact irritants: Change due to possible contact irritants: No color or fragrance Laundry Detergent: Free and Gentle (ALL/Tide) Fabric Softener: Free and Gentle (Downy) Dryer Sheets: Free and Gentle (Bounce) documented in this encounter Progress Notes Keren Pelaez ARNP - 09/04/2019 10:00 AM PDT Subjective Patient ID: Abdullahi Parker is a 53 y.o. male. New patient here today for a severely scaly and intensely itchy rash located on his left pl gretta foot and both hands/fingers that started over a year ago. Patient states he has treat ed with terbinifine, mupirocin and triamcinolone ointment with no improvement. Patient stat es his feet get small blisters and then peel and spread across the bottom of his foot. Nina ent states he gets the scaling on the sides of his fingers as well and it cracks and bleeds at times. The following elements of the patient's history were reviewed and updated as appropriate. T hey are available elsewhere in the patient record. allergies, current medications, past fam yulisa history, past medical history, past social history, past surgical history and problem li st Review of Systems Constitutional: Negative. Skin: Positive for rash. Objective Ht 1.702 m (5' 7") | Wt 93 kg (205 lb) | BMI 32.11 kg/m Physical Exam Eyes: Pupils: Pupils are equal, round, and reactive to light. Skin: General: Skin is warm and dry. Comments: Vesicular rash in conjunction with scaling on the sides of the fingers and lef t plantar foot. Widespread dry, non inflamed, intact skin. Neurological: Mental Status: He is alert. Assessment /Plan Assessment dyshidrotic eczema. We discussed that is generally a stress response that appea rs on the hands and sometimes the feet. Small blisters on the sides of the fingers appear. The areas with these blisters will then peal. We discussed the treating with a high potenc y ointment based topical steroid to wet skin. This will control itch as well as come the in flammatory response in the skin. This rash appears from time to time and having medication to treat the rash at the onset of symptoms is the best way to control this rash. Assessment xerosis of the skin. Discussed this is caused by generalized dry skin. Can be environmentally related and also genetic. Also discussed low thyroid can cause generalized dry skin. I encouraged skin hydration with creams such as CeraVe or Cetaphil to wet skin af ter the shower. I also recommended using gentle soaps and avoiding harsh antibacterial soap s. Pt can use a topical steroid for associated itching. -Discussed treating hands and foot with betamethasone ointment, once nightly. -Discussed good barrier care. -Discussed using applying lotion or cream within 3 minutes of getting out of shower, then a pply the betamethasone to hands and foot and top with o'keefes (or vaseline or cerave ointme nt) -Can apply gloves at night (not cotton gloves) -try to apply lotion or plain vaseline each time hands are washed. 1. Dyshidrotic eczema (Primary) - MI Prep - betamethasone valerate (VALISONE) 0.1 % ointment; Apply to affected areas of hand and foot rash nightly. Best applied to damp skin. Dispense: 45 g; Refill: 11 2. Xerosis cutis Frederick Ferrer CMA, am scribing for, and in the presence of GENIA Sotelo. IKeren DCNP, personally performed the services described in this documentatio n, as scribed by Frederick Sotelo CMA in my presence, and it is both accurate and complete. documented [place] this encounter Plan of Treatment +--------+---------+ + + + | Date | Type | Specialty | Care Team | Description | +--------+---------+ + + + | 02/03/ | Office | Dermatology | Keren Pelaez | | | 2019 | Visit | | [address] | | | | | | [address] | | | | | | [place] [address] | | | | | | [phone] | | | | | | | | +--------+---------+ + + + documented as of this encounter Procedures + +--------+ + + + | Procedure Name | Priori | Date/Time | Associated Diagnosis | Comments | | | ty | | | | + +--------+ + + + | MI DENNEY | Routin | 09/04/2019 | Dyshidrotic eczema | Results for this | | | e | 10:14 AM | | procedure are in the | | | | PDT | | results section. | + +--------+ + + + documented in this encounter Results MI Denney (09/04/2019 10:14 AM PDT) + + + + + + | Component | Value | Ref Range | Performed | Pathologist | | | | | At | Signature | + + + + + + | RESULT | NO YEAST OR FUNGAL | | REFERENCE | | | | [facility] | | LAB | | | | | | [facility] | | | | | | LABORATORY | | + + + + + + | RESULT | Testing performed at | | REFERENCE | | | | TC;[address] [facility] | | LAB | | | | Blvd;[place] | | [facility] | | | | [id number]: Testing | | LABORATORY | | | | performed at [facility], [address] | | | | | [facility] [address], | | | | | | [place] [address] | | | | + + + + + + + + | Specimen | + + | Body Fluid - | | Specimen from skin | | obtained by scraping | | (specimen) | + + + + + + + | Performing | Address | City/State/Zipcode | Phone Number | | Organization | | | | + + + + + | REFERENCE LAB | [address] [place] [address] | [place], [place] | [phone] | | [facility] | Blvd. | [address] | | | LABORATORY | | | | + + + + + | REFERENCE LAB | [address] [place] [address] | [place], [place] | | | [facility] | Blvd. | [address] | | | LABORATORY | | | | + + + + + documented in this encounter Visit Diagnoses + + | Diagnosis | + + | Dyshidrotic eczema - Primary Dyshidrosis | + + | Xerosis cutis Other specified disease of sebaceous glands | + + documented in this encounter
--- OUTSIDE RECORDS SUMMARY | ~2020-01-26 | XMS | Clinical Summary ---
Demographics + + + | Address | [address] | | | [place] [address] | + + + | Home Phone | | + + + | Preferred Language | Unknown | + + + | Marital Status | Unknown | + + + | Faith Affiliation | Unknown | + + + | Race | White | + + + | Ethnic Group | Not or | + + + Author + + + | Author | [facility] | | | and [place] | + + + | Organization | [facility] | | | and [place] | + + + | Address | Unknown | + + + | Phone | Unavailable | + + + Support + + + + + | Name | Relationship | Address | Phone | + + + + + | Majo Garnica | ECON | [address] | | | | | [address], [place] | | | | | [address] | | + + + + + | Maureen Harris | ECON | Unknown | | + + + + + Care Team Providers + +------+ + | Care Dish Washer Name | Role | Phone | + +------+ + | Cece Roberts | PCP | | + +------+ + Allergies + + + + + + | Active Allergy | Reactions | Severity | Noted | Comments | | | | | Date | | + + + + + + | Aspirin | Hives | Medium | 11/25/19 | Hives all over | | | | | 15 | body when young. | + + + + + + | Hydrochlorothiazide | Other (See Comments) | | 09/04/19 | Muscle cramping | | | | | 20 | | + + + + + + | Penicillins | Itching | Medium | 11/25/19 | Made me itch like | | | | | 15 | crazy. | + + + + + + Medications + + + +---------+------+------+-------+ | Medication | Sig | Dispensed | Refills | Star | End | Statu | | | | | | t | Date | s | | | | | | Date | | | + + + +---------+------+------+-------+ | metoprolol | Take 25 mg by mouth | | 0 | | | Activ | | succinate | Daily. | | | | | e | | (TOPROL-XL) 25 mg 24 | | | | | | | | hr tablet | | | | | | | + + + +---------+------+------+-------+ | amLODIPine | Take 1 tablet by | 30 | 0 | 07/0 | | Activ | | (NORVASC) 5 mg | mouth Daily. | tablet | | 8/20 | | e | | tablet | | | | 15 | | | + + + +---------+------+------+-------+ | lisinopril | take 1 tablet by | | 0 | 04/1 | | Activ | | (PRINIVIL,ZESTRIL) | mouth once daily (TO | | | 520 | | e | | 40 MG tablet | REPLACE 20MG) | | | 20 | | | + + + +---------+------+------+-------+ | gabapentin | take 1 capsule by | | 0 | 03/1 | | Activ | | (NEURONTIN) 300 mg | mouth at bedtime | | | 2/20 | | e | | capsule | | | | 20 | | | + + + +---------+------+------+-------+ | | take 1 tablet by | | 0 | 04/1 | | Activ | | HYDROcodone-acetamin | mouth at bedtime | | | 0/20 | | e | | ophen (NORCO) 5-325 | | | | 20 | | | | mg per tablet | | | | | | | + + + +---------+------+------+-------+ | meloxicam (MOBIC) | take 1 tablet by | | 0 | 03/2 | | Activ | | 15 mg tablet | mouth once daily | | | 720 | | e | | | | | | 20 | | | + + + +---------+------+------+-------+ | betamethasone | Apply to affected | 45 g | 11 | 04/ | | Activ | | valerate (VALISONE) | areas of hand and | | | / | | e | | 0.1 % | foot rash nightly. | | | 20 | | | | ointmentIndications: | Best applied to damp | | | | | | | Dyshidrotic eczema | skin. | | | | | | + + + +---------+------+------+-------+ Active Problems + + + | Problem | Noted Date | + + + | Bilateral carpal tunnel syndrome | 07/26/2015 | + + + | Hypertension | 11/24/2014 | + + + + + | Last Assessment & Plan: Hold all hypertension meds for now, | | and advised him not to take the losartan hydrochlorothiazide pill | | if he is going to be working in the heat. | + + + + + | Acute kidney injury | 11/24/2014 | + + + + + | Last Assessment & Plan: This is likely due to profound | | dehydration and heat stroke in the setting of chronic losartan | | and thiazide use. He has mild rhabdomyolysis and a very elevated | | myoglobin level. He appropriately received fluids in [place] | | and will recheck renal function now. If his renal function does | | not improve with fluids will do further investigation. A | | urinalysis is pending. | + + + + + | Severe dehydration | 11/24/2014 | + + + + + | Last Assessment & Plan: Continue normal saline and recheck | | renal function and electrolytes now. 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 | + + +---------+ + | Smoking | 11/24/2014 | +---------+ + + + | Last Assessment & Plan: Nicotine patch. He wants to quit. | + + + + + | Elevated troponin | 11/24/2014 | + + + + + | Last Assessment & Plan: He did have some twinges of chest | | pain, although is currently having no chest pain and had an EKG | | which showed no ischemic changes. He did have a mildly elevated | | troponin in [place], and will recheck at this time. Suspect | | the elevated troponin was due to his profound dehydration and | | muscle breakdown, but will monitor closely. Monitor on | | telemetry. | + + + + + | Chronic idiopathic thrombocytopenia | 11/24/2014 | + + + + + | Last Assessment & Plan: [facility] to make sure this is | | stable. | + + Social History + +-------+ +--------+ [...] on file | | + + + Last Filed Vital Signs + + + + + | Vital Sign | Reading | Time Taken | Comments | + + + + + | Blood Pressure | 133/94 | 07/26/2015 11:00 AM | | | | | PST | | + + + + + | Pulse | 76 | 07/26/2015 11:00 AM | | | | | PST | | + + + + + | Temperature | 36.3 C (97.3 F) | 11/25/2014 7:45 AM | | | | | PDT | | + + + + + | Respiratory Rate | 20 | 11/25/2014 7:45 AM | | | | | PDT | | + + + + + | Oxygen Saturation | 98% | 11/25/2014 7:45 AM | | | | | PDT [...] | | + + + + + Plan of Treatment +--------+---------+ + + + | Date | Type | Specialty | Care Team | Description | +--------+---------+ + + + | 02/03/ | Office | Dermatology | Keren Pelaez | | | 2020 | Visit | | [address] | | | | | | [facility] | | | | | | [facility] [address] | | | | | | [phone] | | | | | | | | +--------+---------+ + + + + + + + + | Health Maintenance | Due Date | Last | Comments | | | | Done | | + + + + + | Hepatitis C | | | | | Screening | 5 | | | + + + + + | Medication | | | | | Management | 5 | | | + + + + + | Vaccine: | | | | | Pneumococcal 19-64 | 1 | | | | (1 of 1 - PPSV23) | | | | + + + + + | Vaccine: | | | | | Dtap/Tdap/Td (1 - | 4 | | | | Tdap) | | | | + + + + + | Colorectal Cancer | | | | | Screening | 5 | | | | (Colonoscopy) | | | | + + + + + | Vaccine: Zoster (1 | | | | | of 2) | 5 | | | + + + + + | Med Mgmt: BUN | | 11/26/19 | | | | 6 | 15, | | | | | 11/25/19 | | | | | 15 | | + + + + + | Med Mgmt: Cr | | 11/26/19 | | | | 6 | 15, | | | | | 11/25/19 | | | | | 15 | | + + + + + | Med Mgmt: K | | 11/26/19 | | | | 6 | 15, | | | | | 11/25/19 | | | | | 15 | | + + + + + | Med Mgmt: eGFR | | 11/26/19 | | | | 6 | 15, | | | | | 11/25/19 | | | | | 15 | | + + + + + | Lung Cancer | | | | | Screening | 0 | | | + + + + + | Vaccine: Influenza | | | | | (#1) | 0 | | | + + + + + Results Not on filefrom Last 3 Months Insurance + +--------+ +--------+ +---------+--------+ | Payer | Benefi | Subscriber | Effect | Phone | Address | Type | | | t Plan | ID | hilda | | | | | | / | | Dates | | | | | | Group | | | | | | + +--------+ +--------+ +---------+--------+ | CCMSI | CCMSI | [id number] | | [phone] | | Indemn | | | WC | 5 | 016-Pr | 8 | | ity | | | | | esent | | | | + +--------+ +--------+ +---------+--------+ | BCBS | BCBS | [id number] | 05/21/19 | | | PPO | | | OOS | 3 | 14-Pre | | | | | | PPO | | sent | | | | + +--------+ +--------+ +---------+--------+ | [employer] | MODA | [id number] | | [phone] | | Medica | | MEDICAID HMO | HEALTH | | 020-Pr | 1 | | id | | | MDCD | | esent | | | | | | [place] | | | | | | + +--------+ +--------+ +---------+--------+ + +--------+ +--------+ + + | Guarantor Name | Accoun | Relation to | Date | Phone | Billing Address | | | t Type | Patient | of | | | | | | | | | | + +--------+ +--------+ + + | Abdullahi Parker | Person | Self | [birth year] | [address] | | | al/Fam | | 1966 | [phone] | [place] [address] | | | yulisa | | | 1 (Home) | | + +--------+ +--------+ + + | Abdullahi Parker | Person | Self [birth year] | [address] | | | al/Fam | | 1966 | [phone] | [place] [address] | | | yulisa | | | 1 (Home) | | + +--------+ +--------+ + + | Abdullahi Parker | Worker | Self | [birth year] | | [address] | | | s Comp | | 1966 | [phone] | [place], [place] | | | | | | 1 (Home) | [address] | + +--------+ +--------+ + + | Abdullahi Parker | Person | Self [birth year] | [address] | | | al/Fam | | 1966 | [phone] | [place] [address] | | | yulisa | | | 1 (Home) | | + +--------+ +--------+ + + Advance Directives + + + + + | Type | Date Recorded | Patient | Explanation | | | | Sodder | | + + + + + | Power of | | | | | Production Consultant | | | | + + + + + | Advance | 11/25/2014 9:00 | | | | Directive | AM | | | + + + + + + + + + + | Code Status | Date | Date | Comments | | | Activated | Inactivated | | + + + + + | Full Code | 11/24/2014 | 11/25/2014 | | | | 2:02 AM | 3:30 PM | | + + + + +
--- OUTSIDE RECORDS SUMMARY | ~2020-01-26 | XMS | Encounter Summary ---
Demographics + + + | Address | [address] | | | [place] [address] | + + + | Home Phone | | + + + | Preferred Language | Unknown | + + + | Marital Status | Unknown | + + + | Yarsanism Affiliation | Unknown | + + + | Race | White | + + + | Ethnic Group | Not or | + + + Author + + + | Author | [facility] | | | and [place] | + + + | Organization | [facility] | | | and [place] | + + + | Address | Unknown | + + + | Phone | Unavailable | + + + Support + + + + + | Name | Relationship | Address | Phone | + + + + + | Majo Garnica | ECON | [address] | | | | | [address], [place] | | | | | [address] | | + + + + + | Maureen Harris | ECON | Unknown | | + + + + + Care Team Providers + +------+ + | Care Dialysis Rn Name | Role | Phone | + +------+ + | Cece Roberts | PCP | | + +------+ + Reason for Visit +--------+--------+ + | Reason | Onset | Comments | | | Date | | +--------+--------+ + | Other | 09/07/ | | | | 2019 | | +--------+--------+ + Encounter Details +--------+ + + + + | Date | Type | Department | Care Team | Description | +--------+ + + + + | 09/07/ | Telephone | [facility] | Keren Pelaez | Other | | 2020 | | PLASTIC SURGERY AND | [address] | | | | | DERMATOLOGY [address] | [address] | | | | | [address] | [place] [address] | | | | | [place], [place] | [phone] | | | | | [address] | | | | | | [phone] | | | +--------+ + + + + Social History + +-------+ [...] | | + +---+---+---+ + + | Comments: uses vape pen daily | [...] + + documented as of this encounter Functional Status + + + [...] + + documented as of this encounter Miscellaneous Notes Telephone Encounter - Linda Rooney Shirt Turner - 09/08/2019 3:32 PM PDTPt kuhn d and I then informed him of his results, he indicated understanding and thanked me. Electro nically signed by Linda Rooney Shirt Turner at 09/08/2019 3:33 PM PDTTelephone Enc tashanter - Linda Rooney Shirt Turner - 09/08/2019 3:31 PM PDT----- Message from MARIO Keller sent at 09/08/2019 12:34 PM PDT ----- Skin scraping was negative for any fungal elements. Continue with plan as made at office vi sit. Thank you, MARIO Collins 09/08/2019 12:34 PM docum ented in this encounter Plan of Treatment +--------+---------+ + + + | Date | Type | Specialty | Care Team | Description | +--------+---------+ + + + | 02/03/ | Office | Dermatology | Keren Pelaez | | | 2019 | Visit | | [address] | | | | | | [address] | | | | | | [place] [address] | | | | | | [phone] | | | | | | | | +--------+---------+ + + + documented as of this encounter Visit Diagnoses Not on filedocumented in this encounter"
--- OUTSIDE RECORDS SUMMARY | ~2020-01-26 | XMS | Encounter Summary ---
Demographics + + + | Address | [address] | | | [place] [address] | + + + | Home Phone | | + + + | Preferred Language | Unknown | + + + | Marital Status | Unknown | + + + | Congregational Affiliation | Unknown | + + + | Race | White | + + + | Ethnic Group | Not or | + + + Author + + + | Author | [facility] | | | and [place] | + + + | Organization | [facility] | | | and [place] | + + + | Address | Unknown | + + + | Phone | Unavailable | + + + Support + + + + + | Name | Relationship | Address | Phone | + + + + + | Majo Garnica | ECON | [address] | | | | | [address], [place] | | | | | [address] | | + + + + + | Maureen Harris | ECON | Unknown | | + + + + + Care Team Providers + +------+ + | 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 | Role | Phone | + +------+ + PCP | Unavailable | + +------+ + Reason for Visit + +--------+ + | Reason | Onset | Comments | | | Date | | + +--------+ + | Scheduling Issues | 04/28/ | | | | 2014 | | + +--------+ + Encounter Details +--------+ + + + + | Date | Type | Department | Care Team | Description | +--------+ + + + + | 04/28/ | Telephone | [facility] | [facility] [place] | Scheduling Issues | | 2014 | | [address] | | | | [address] [place], [place] | | | | | [place], [place] | [address] | | | | | [address] | | | | | | [phone] | | | +--------+ + + + + Social History + +-------+ +--------+ + | Tobacco Use | Types | Packs/Day | Years | Date | | | | | Used | | + +-------+ +--------+ + | Current Every Day | | 1 | 32 | Started: 11/24/1981 | | Smoker | | | | | + +-------+ +--------+ + + + | Comments: getting real close. I have been having alot of stress in my life. Uses CHEW. | + + + + +---------+ + | Alcohol Use | Drinks/Week | oz/Week | Comments | + + +---------+ + | Yes | | | on a rare occasion | + + +---------+ + + + [...] this encounter Miscellaneous Notes Telephone Encounter - Adelaida Gardner - 04/28/2015 11:19 AM PSTError encounterElectronicall y signed by Adelaida Gardner at 04/28/2015 11:21 AM PSTdocumented in this encounter Plan of Treatment +--------+---------+ + + + | Date | Type | Specialty | Care Team | Description | +--------+---------+ + + + | 02/03/ | Office | Dermatology | Keren Pelaez | | | 2020 | Visit | | [address] | | | | | | [address] | | | | | | [place] [address] | | | | | | [phone] | | | | | | | | +--------+---------+ + + + documented as of this encounter Visit Diagnoses Not on filedocumented in this encounter"
--- OUTSIDE RECORDS SUMMARY | ~2020-01-26 | XMS | Encounter Summary ---
Demographics + + + | Address | [address] | | | [place] [address] | + + + | Home Phone [...] Author + + + | Author | [facility] | | | and [place] | + + + | Organization | [facility] | | | and [place] | + + + | Address | Unknown | + + + | Phone | Unavailable | + + + Support + + + + + | Name | Relationship | Address | Phone | + + + + + | Majo Garnica | ECON | [address] | | | | | [id number], [place] | | | | | [address] | | + + + + + | Maureen Harris | ECON | Unknown | | + + + + + Care Team Providers + +------+ + | Care Plumber Cub Name | Role | Phone | + +------+ + | Unknown, Physician | PCP | | + +------+ + Reason for Visit Auth/Cert +--------+--------+ + + + + | Status | Reason | Specialty | Diagnoses / | Referred By | Referred To | | | | | Procedures | Contact | Contact | +--------+--------+ + + + + | | | | Diagnoses | | | | | | | Renal | | | | | | | failure, | | | | | | | acute (HCC) | | | | | | | acute renal | | | | | | | failure | | | +--------+--------+ + + + + Encounter Details +--------+ + + + + | Date | Type | Department | Care Team | Description | +--------+ + + + + | 11/24/ | Hospital | [facility] | Jose Medel, | Acute kidney injury | | 2015 - | Encounter | [facility] | [address] | (HCC) (Primary Dx); | | | | [address] | [place] | Elevated troponin; | | 11/25/ | | [place] [id number] | [id number] | Essential | | 2014 | | [phone] | [phone] | hypertension; Severe | | | | | | dehydration; | | | | | | Chronic idiopathic | | | | | | thrombocytopenia | | | | | | ([facility]) | +--------+ + + + + Social History + +-------+ +--------+ + | Tobacco Use | Types | Packs/Day | Years | Date | | | | | Used | | + +-------+ +--------+ + | Current Every Day | | 1 | 33 | Started: 11/24/1981 | | Smoker | | | | | + +-------+ +--------+ + + + | Tobacco Cessation: Ready to Quit: Yes | | Comments: getting real close. I have [...] + + + | Blood Pressure | 139/80 | 11/25/2014 7:45 AM | | | | | PDT | | + + + + + | Pulse | 83 | 11/25/2014 7:45 AM | | | [...] + + + + | Weight | 86.3 kg (190 lb 4.1 | 11/25/2014 5:34 AM | | | | oz) | PDT | | + + + + + | Height | 170.2 cm (5' 7.01") | 11/24/2014 1:23 AM | | | | | PDT | | + + + + + | Body Mass Index | 29.79 | 11/24/2014 1:23 AM | | | | | PDT [...] + + documented as of this encounter Discharge Summaries Slava Butler MD - 11/25/2014 11:30 AM PDT [facility] DISCHARGE SUMMARY Pt. Name/Age/: Abdullahi Parker 49 y.o. 1965 Date of Admission: 11/24/2014 Date of Discharge: 11/25/2014 Admitting Physician: Jose Medel MD Primary Care Provider: Desmond Cruz Discharging Physician: Slava Butler MD DISCHARGE DIAGNOSES: Active Hospital Problems Diagnosis Acute kidney injury Severe dehydration Elevated troponin Hypertension Smoking Chronic idiopathic thrombocytopenia Resolved Hospital Problems Diagnosis No resolved problems to display. DISCHARGE MEDICATIONS: Discharge Medications New Medications Details amLODIPine 5 mg tablet Take 1 tablet by mouth Daily. aka: NORVASC Unchanged Medications Details metoprolol succinate 25 mg 24 hr tablet Take 25 mg by mouth Daily. aka: TOPROL-XL Discontinued Medications hydrochlorothiazide 25 mg tablet K-DUR PO losartan 100 MG tablet aka: NIKKO DISCHARGE INSTRUCTIONS: Follow-up Information Follow up with Desmond Cruz. Why: 7-10 days Contact information: [address] [place] [id number] PENDING RESULTS: HOSPITAL COURSE: Please refer to the H&P for full details. In short this 49-year-old male with a history of hypertension presented to [facility] emergency room with severe whole-body cramping and weakness following working at 115 heat. In discussion with the patient whenever he is deh ydrated he developed severe cramping and points to all muscles including his jaws as involve d with the cramping. Since he's been able to treat this with good hydration throughout his life this is the first time he's been hospitalized for the problem. At [facility] patien t had a normal CPK of 291 with a markedly elevated serum myoglobin of 943 with the upper santoyo its of normal being 72, and a elevated serum creatinine of 3.67 with a BUN of 31. The patie nt had other evidence of hemoconcentration with a calcium 11.0, total protein of 8.7 and alb umin of 5.2 which with rehydration normalized to a albumin of 3.3 and total protein of 6.2. She was admitted and continued on IV fluids with creatinine falling on the day of discharge to 0.9. The patient had a cardiac enzyme panel at the time of admission showed a total CPK of 394, CK-MB of 10.2(3% which is within normal limits), and a troponin of 0.03. Discussion with Neurology relative to the need for a neuromuscular evaluation to rule out l ow-grade muscle disease causing the degree of cramping associated with dehydration ensued an d it was recommended the patient have a outpatient neuromuscular exam. This recommendation was forwarded to patient and locally Dr. Larson's name was given as a neurologist who could evaluate neuromuscular abnormalities. She'll be discharged home with recommendation to retu rn to work on 11/29/2014. He was advised to stay well hydrated noting he said his cu rrent employment performing a half years and has done well up until this point. He was enco uraged to see his PCP, Dr. Cruz, within the next 7-10 days. The patient at the time of admission was taking losartan/hydrochlorothiazide and metoprolol . He stated the losartan alone was not well tolerated and I advised him I would not recomme nd taking a thiazide because of his potential for dehydration. He is discharged on metoprol ol succinate 25 mg daily as taken prior to admission and amlodipine 5 mg daily is added to h is medical regimen with these 2 agents used for treatment of hypertension. The patient does have a history of chronic thrombocytopenia and his platelet count at the t manju of discharge is 55,000 and will also need to be followed as an outpatient. This patient had improvement clinically in a more rapid fashion than expected and thus is d ischarged 36 hours following admission. PHYSICAL EXAM: Temp: 36.3 C (97.3 F), Pulse: 83, Resp: 20, BP: 139/80 mmHg, SpO2 98 % on room air, mec hanical ventilation at flow rate L/min Temp Min: 36.2 C (97.2 F) Max: 37 C (98.6 F) Weight: 86.365 kg (190 lb 6.4 oz) Patient seen and examined by me on discharge day Less than 30 minutes were spent on discharge and coordination of post-hospital care. Electronically signed by: Slava Butler MD, 11/25/2014 11:36 [facility] Portions of this chart may have been created with PhoneAndPhone voice recognition software. Occasi onal wrong-word or sound-alike substitutions may have occurred due to the inherent santoyo itations of voice recognition software. Please read the chart carefully and recognize, using context, where these substitutions have occurred documented in this enc ounter Discharge Instructions AttachmentsThe following attachments cannot be sent through Care Everywhere.AMLODIPINE ([facility])documented in this encounter Medications at Time of Discharge + + + +---------+ + + | Medication | Sig | Dispensed | Refills | Start | End Date | | | | | | Date | | + + + +---------+ + + | amLODIPine | Take 1 tablet by | 30 | 0 | 11/26/19 | | | (NORVASC) 5 mg | mouth Daily. | tablet | | 15 | | | tablet | | | | | | + + + +---------+ + + | metoprolol | Take 25 mg by mouth | | 0 | | | | succinate | Daily. | | | | | | (TOPROL-XL) 25 mg 24 | | | | | | | hr tablet | | | | | | + + + +---------+ + + documented as of this encounter Progress Notes Augustin Carey RN - 11/25/2014 1:32 PM PDTDischarged to home ([place]). ugustin Carey RN - 11/25/2014 1 2:33 PM PDTDischarge instructions given, pt up ambulating around hospital awaiting ride from [employer]. Pt to follow up with PCP and possible referral to Dr Larson.Electronically avinash d by Augustin Carey RN at 11/25/2014 12:34 PM Slava Price MD - 11/24/2014 6:19 PM PDTHospitalist follow-up Patient reassessed on the evening of admission. Blood pressure most recently is 189/78 wit h a heart rate of 80. Going to reinitiate metoprolol with 25 mg twice daily and give amlodi pine 5 mg daily holding his losartan/hydrochlorothiazide until renal function normalizes. I 'm going to obtain a urine and urine myoglobin. Maame Davis RN - 11/24/2014 3:49 PM PDTPatient ambulating in hallway, anxious to be discharge. Electronically signed by Maame Rodriguez RN at 3:49 PM Maame Davis RN - 11/24/2014 10:17 AM PDTPatient alert and edy ented. No c/o pain or discomfort. States he could not sleep last night. Electronically si gned by Maame Rodriguez RN at 11/24/2014 10:17 AM Anna Muller RN - 11/24/2014 5:18 AM PDTPt up and ambulated to bathroom, reports feeling gassy, abd rounded.Electronica lly signed by Anna Suarez RN at 11/24/2014 5:18 AM PDTdocumented in this encounter H&P Notes Jose Medel MD - 11/24/2014 2:02 AM PDTFormatting of this note might be different f rom the original. [facility] HISTORY AND PHYSICAL Pt. Name/Age/: Abdullahi Parker 49 y.o. 1965 Date of admission: 11/24/2014 Admitting Physician: Jose Medel MD Primary Care Provider: UNKNOWN, PHYSICIAN MEDICAL AFFAIRS SPECIALIST CHIEF COMPLAINT: Muscle cramping and weakness HISTORY OF PRESENT ILLNESS: This is a 49 y.o. male with a history of hypertension, smoking who presents with severe who le-body cramping, weakness after working in the 115 heat. He smokes a pack a day and has hypertension at baseline, and recently has had a upper respi ratory infection, but otherwise has been feeling well. 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 He sta montserrat that he was 115. He urinated once in the morning but did not urinate after this. He developed worsening weakness and all over muscle cramping later in the afternoon. He stated that he may have had some twinges of chest pain, but this was not his main concern. He went to [facility] in [place], and was found to have profound dehydration and acute kidney injury with a BUN of 31 and a creatinine of 3.7 area he also had a myoglobi n level of 942, and a troponin of 0.035 which is greater than the normal value of 0.01. He was given a total of 5 L of fluid, and was transferred to [facility] because of l ack of availability of nephrology. PAST MEDICAL and SURGICAL HISTORY: Past Medical History Diagnosis Date Hypertension Methamphetamine abuse in remission Smoking Thrombocytopenia (HCC) Past Surgical History Procedure Laterality Date Ankle surgery FAMILY HISTORY: Daughter has ongoing drug use. SOCIAL HISTORY: reports that he has been smoking. He started smoking about 33 years ago. He does not have any smokeless tobacco history on file. He reports that he drinks alcohol. He reports that scotty taylor does not use illicit drugs. 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 REVIEW OF SYSTEMS: Significant for denial of fevers. He has no acute shortness of breath. He had twinges of chest pain earlier in the afternoon but none currently. He had one episode of loose stool t maria victoria, but no nausea or vomiting and no abdominal pain. He feels much better than he did ear lier in the evening.. A complete 14-system review was otherwise negative except as noted in the HPI. HOME MEDICATIONS: Current Discharge Medication List CONTINUE these medications which have NOT CHANGED Details hydrochlorothiazide 25 mg tablet Take 25 mg by mouth Daily. losartan (COZAAR) 100 MG tablet Take 100 mg by mouth Daily. metoprolol succinate (TOPROL-XL) 25 mg 24 hr tablet Take 25 mg by mouth Daily. Potassium Chloride Danyell CR (K-DUR PO) Take 1,200 mg by mouth as needed (only one tablet a d ay: Keeps the cramps away. DOSE UNCERTIAN). ALLERGIES: Allergies Allergen Reactions Aspirin Hives Hives all over body when young. Penicillins Itching Made me itch like crazy. VITAL SIGNS: Temp: 37 C (98.6 F), Pulse: 94, Resp: 18, BP: 142/82 mmHg, SpO2 97 % on room air, mecha nical ventilation at flow rate L/min Temp Min: 37 C (98.6 F) Max: 37 C (98.6 F) Weight: 86.365 kg (190 lb 6.4 oz) PHYSICAL EXAMINATION: Gen Jae - alert, cooperative and no distress, pleasant, good historian Head - Normocephalic, without obvious abnormality Eyes - conjunctiva/corneas clear ENT - mucous membranes moist Neck - supple Lungs - clear to auscultation, no wheezes or rales and unlabored breathing Heart - normal rate, regular rhythm, normal S1, S2, no murmurs, rubs, clicks or gallops Abdomen - soft, non-tender, without masses or organomegaly Extremities - no peripheral edema, no clubbing or cyanosis Skin - no rashes Neurologic - Alert and oriented x 3. DIAGNOSTIC STUDIES: Available data and images were reviewed personally. Significant results and findings are a ddressed here or in the Assessment and Plan. Recent Results (from the past 24 hour(s)) Urinalysis with Microscopic with Culture if Indicated Result Value Ref Range COLOR Yellow Light Yellow, Yellow CLARITY Clear Clear PH UA 5.0 5.0-8.0 Specific [place] 1.020 1.001-1.030 PROTEIN UA Negative Negative BLOOD UA Trace (A) Negative GLUCOSE UA Negative Negative KETONES UA Negative Negative BILIRUBIN UA Negative Negative NITRITE UA Negative Negative LEUKOCYTES ESTERASE UA Negative Negative UROBILINOGEN UA 0.2 E.U./dL 0.2 E.U./dL, 1.0 E.U./dL WBC UA 0-2 0-2 /HPF RBC UA 0-2 0-2 /HPF SQUAMOUS EPITHELIAL UA 0-2 0-2 /LPF BACTERIA UA Negative Negative /HPF HYALINE CASTS UA 0-2 0-2 /LPF Comprehensive Metabolic Panel Result Value Ref Range NA 134 (L) 136-149 mmol/L K 4.5 3.5-5.1 mmol/L CL 103 98-109 mmol/L CO2 24 24-31 mmol/L ANION GAP 7 3-16 mmol/L GLUCOSE 106 70-109 mg/dL BUN 25 (H) 7-18 mg/dL Creatinine, Serum/Plasma 1.92 (H) 0.60-1.30 mg/dL eGFR if not 37 (L) >=60 mL/min/1.73m2 CALCIUM 8.5 8.3-10.5 mg/dL ALBUMIN 3.7 3.2-5.0 g/dL BILIRUBIN TOTAL 0.5 0.1-1.5 mg/dL Total protein 6.5 6.0-7.8 g/dL AST 25 10-42 U/L ALT 35 6-45 U/L ALK PHOS 81 40-110 U/L GLOBULIN 2.8 g/dL Albumin/Globulin ratio 1.3 BUN/CREA 13.0 CBC with Differential Result Value Ref Range WBC 11.4 (H) 4.0-11.0 K/uL RBC 4.32 4.30-5.70 M/uL Hgb 13.0 (L) 13.5-18.0 g/dL Hct 39.5 (L) 40.0-51.0 % MCV 91.6 83.0-101.0 fL MCH 30.1 28.0-35.0 pg MCHC 32.8 32.0-36.0 g/dL RDW 13.7 <15.0 % Platelet Count 73 (L) 140-440 K/uL MPV 16.8 fL % Neutrophils 71.1 45.0-82.0 % % Lymphocytes 19.2 (L) 20.0-45.0 % % Monocytes 8.1 4.0-12.0 % % Eosinophils 1.0 0.0-5.0 % % Basophils 0.6 0.0-1.0 % Absolute Neutrophils 8.10 1.80-8.50 K/uL Absolute Lymphocytes 2.20 0.60-3.20 K/uL Absolute Monocytes 0.90 0.00-1.00 K/uL Absolute Eosinophils 0.10 0.00-0.40 K/uL Absolute Basophils 0.10 0.00-0.10 K/uL Phosphorus Result Value Ref Range PHOSPHORUS 4.3 2.5-4.6 mg/dL Magnesium Result Value Ref Range MG 1.9 1.8-2.5 mg/dL CK Total Result Value Ref Range CK TOTAL 394 (H) 22-269 U/L CK-MB Result Value Ref Range CK-MB 10.2 (H) 0.6-6.3 ng/mL Troponin I Result Value Ref Range TROPONIN I 0.03 <0.06 ng/mL Slide Review, Peripheral Smear Result Value Ref Range RBC MORPHOLOGY Normal WBC MORPHOLOGY Normal Platelet Estimate Adequate Adequate Platelet, Giant Present (A) Not Present No results found. Na 130, K 5.2, Cl 93, HCO3 23, BUN 31, Cr 3.7, Glucose 118 WBC 17.9, HCT 46.8, PLT 38 CK 291, myoglobin 942, troponin 0.035, LFT's normal EKG: Reviewed independently by me. The tracing shows tachycardia, no ischemic changes ASSESSMENT and PLAN: Acute kidney injury Assessment & Plan This is likely due to profound dehydration and heat stroke in the setting of chronic losart an and thiazide use. He has mild rhabdomyolysis and a very elevated myoglobin level. He ap propriately received fluids in [place] and will recheck renal function now. If his renal function does not improve with fluids will do further investigation. A urinalysis is pendin g. Severe dehydration Assessment & Plan Continue normal saline and recheck renal function and electrolytes now. 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 Elevated troponin Assessment & Plan He did have some twinges of chest pain, although is currently having no chest pain and had an EKG which showed no ischemic changes. He did have a mildly elevated troponin in [place], and will recheck at this time. Suspect the elevated troponin was due to his profound deh ydration and muscle breakdown, but will monitor closely. Monitor on telemetry. Hypertension Assessment & Plan Hold all hypertension meds for now, and advised him not to take the losartan hydrochlorothi azide pill if he is going to be working in the heat. Smoking Assessment & Plan Nicotine patch. He wants to quit. Chronic idiopathic thrombocytopenia Assessment & Plan Reportedly chronic per ER physician at [facility]. Will get old labwork to make sure th is is stable. DVT Prophylaxis SCD's while in bed Code Status Full Code. CMS Documentation I expect this patient will be hospitalized for greater than 2-midnights and expect the post -hospital plan to be discharge to home or to an adult foster home. Total of 50 minutes were required to complete the admission process. Reviewed and summariz ed past medical records. Medical Decisionmaker: His mother Electronically signed by: Jose Medel MD 11/24/2014 5:58 [facility] Portions of this chart may have been created with PhoneAndPhone voice recognition software. Occasi onal wrong-word or sound-alike substitutions may have occurred due to the inherent santoyo itations of voice recognition software. Please read the chart carefully and recognize, using context, where these substitutions have occurred documented in this encounter Miscellaneous Notes Plan of Care - Augustin Carey RN - 11/25/2014 12:07 PM PDTProblem: General Plan of Care (Adult, Obstetrics) Goal: Care Plan Shift Summary & Review . Outcome: Goal Achieved Date Met: 11/25/14 No complaints, labs normal, ok'd for discharge. lan of Care - Alexus Dewey RN - 11/25/2014 6:37 AM PDTProblem: General Plan of Care (Adult, Obstetric s) Goal: Care Plan Shift Summary & Review . Outcome: Progressing Patient slept through the night. Patient states he feels much better than he did previously . Very independent in room. Continuing to monitor, with no concerns at this time. Vitals sta ble. lan of Care - Alexus Brand RN - 11/24/2014 8:10 PM PDTProblem: General Plan of Care (Adult, Obstetr ics) Goal: Care Plan Shift Summary & Review . Outcome: Progressing Patient awake and about to take a shower. Denies pain, also denies any muscle spasms or lee mors today. Very pleasant and talkative. lan of Care - Keren Gallegos RN - 11/24/2014 3:23 PM PDTProblem: General Plan of Care (Adult, Obstetri cs) Goal: Care Plan Shift Summary & Review . Discharge planning: I spoke with Abdullahi today. He states he is very independent. He lives in [place] with his s ignificant other. He work for an [employer]. He states he had been on vacation and this was his firs t day back to work. He states he tried to stay hydrated. However, he states he drank 2 cups of coffee in the mo rning, and drinks a lot of Pepsi, but he did try to drink water and Gatorade. I did explain that coffee and Pepsi are diuretics and do not work well for hydrating. Abdullahi states that this is his third admission for the same problems. We discussed that he ne eds to educate himself regarding his conditions. Abdullahi agrees and is very interested in learn ing what he can do to help prevent this from happening. Abdullahi states he uses [facility] in [place] and his PCP is Dr Santos, and he has an appt scheduled for 12/02. His significant other will be his transportation home when he is medically stable for disch arge. Electronically signed by: Keren Milton RN 11/24/2014 15:22 lan of Care - Ashkan Diallo Chaplain - 11/24/2014 3:17 PM PDTProblem: General Plan of Care (Adult, Obs tetrics) Goal: Care Plan Shift Summary & Review . Spiritual Care Abdullahi Parker is a 49 y.o. male who is admitted for Renal failure, acute (HCC) [584.9]. Spiritual Evaluation: Patient was walking around his room. He was in high spirits. Patient mentioned he was feeling much better. 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 Patient stated he had ramila nk a lot of soda the day before and coffee and that probably didn't help. He also tried to d rink a lot of water but non of that help. He was brought to the hospital by ambulance from [facility]. Patient is happy to be doing better and hopes things keep marching in that directi on. Patient believes in a higher power and knows he is still here because of it. I wished th e patient good health. Spiritual Intervention: Patient welcomed horse wrangler visit and supportive listening. I wishe d the patient good health. Spiritual Outcomes: Patient thank me for the visit. Spiritual Goals/Follow up: Utility Spray Operator will continue to provide ongoing emotional/spiritual support for patient as requested. lan of Juvencio Ozuna RN - 11/24/2014 6:45 AM PDT Problem: General Plan of Care (Adult, Obstetrics) Goal: Care Plan Shift Summary & Review . Outcome: Progressing END OF SHIFT SUMMARY Patient was alert and oriented x4. Vital signs stable. The last set of vitals was: BP 142/82 mmHg | Pulse 94 | Temp(Src) 37 C (98.6 F) (Oral) | Resp 18 | Ht 1.702 m (5' 7.01") | Wt 86.365 kg (190 lb 6.4 oz) | BMI 29.81 kg/m2 | SpO2 97% Pain was managed with PRN medication ASA 650mg.; Urine output was at least 30ml/hr clear an d yellow urine. I/O is as follows; Intake/Output Summary (Last 24 hours) at 11/24/14 0638 Last data filed at 11/24/14 0600 Gross per 24 hour Intake 1351 ml Output 1150 ml Net 201 ml Weight has was 86.365kg on admission to floor..There was not BM(s) this shift. SP02 has bee n above 90% on R/A. Mobility remains unchanged during this shift. The patient slept po luly. Sig. Lab Results include low platelets, slightly increased WBC and decreased GFR . ...........................................Juvencio Jacobs RN on 11/24/14 at 6:38 ssessment & Plan Note - Jose Medel MD - 11/24/2014 5:58 AM PDTAssociated Problem(s): Chronic idiopat hic thrombocytopenia (HCC)Reportedly chronic per ER physician at [facility] Will get ol d labwork to make sure this is stable. Electronically signed by Jose Medel MD at 11/2014 5:58 AM PDTAssessment & Plan Note - Jose Medel MD - 11/24/2014 2:57 AM PDT Associated Problem(s): Elevated troponinHe did have some twinges of chest pain, although is currently having no chest pain and had an EKG which showed no ischemic changes. He did have a mildly elevated troponin in [place], and will recheck at this time. Suspect the elevat ed troponin was due to his profound dehydration and muscle breakdown, but will monitor close ly. Monitor on telemetry. ssessment & Plan Note - Jose Medel MD - 11/24/2014 2:55 AM PDTAssociated Pro blem(s): HypertensionHold all hypertension meds for now, and advised him not to take the abdirahman perez hydrochlorothiazide pill if he is going to be working in the heat.Electronically avinash d by Jose Medel MD at 11/24/2014 2:55 AM PDTAssessment & Plan Note - Jose Medel MD - 11/24/2014 2:55 AM PDTAssociated Problem(s): SmokingNicotine patch. He wants to q uit. ssessment & Curry n Note - Jose Medel MD - 11/24/2014 2:55 AM PDTAssociated Problem(s): Severe dehydr ationContinue normal saline and recheck renal function and electrolytes now. 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 Assessment & Plan Note - Jose Medel MD - 11/24/2014 2:54 AM PDTAssociated Problem(s ): Acute kidney injury (HCC)This is likely due to profound dehydration and heat stroke in th e setting of chronic losartan and thiazide use. He has mild rhabdomyolysis and a very eleva montserrat myoglobin level. He appropriately received fluids in [place] and will recheck renal f unction now. If his renal function does not improve with fluids will do further investigati on. A urinalysis is pending. 2: 54 AM PDTdocumented in this encounter Plan of Treatment +--------+---------+ + + + | Date | Type | Specialty | Care Team | Description | +--------+---------+ + + + | 02/03/ | Office | Dermatology | Keren Pelaez | | | 2019 | Visit | | [address] | | | | | | [facility] | | | | | | [place] [address] | | | | | | [phone] | | | | | | | | +--------+---------+ + + + documented as of this encounter Procedures + +--------+ + + + | Procedure Name | Priori | Date/Time | Associated Diagnosis | Comments | | | ty | | | | + +--------+ + + + | CBC WITH | Routin | 11/25/2014 | | Results for this | | DIFFERENTIAL | e | 6:41 AM | | procedure are in the | | | | PDT | | results section. | + +--------+ + + + | CK TOTAL | Routin | 11/25/2014 | | Results for this | | | e | 6:41 AM | | procedure are in the | | | | PDT | | results section. | + +--------+ + + + | COMPREHENSIVE | Routin | 11/25/2014 | | Results for this | | METABOLIC PANEL | e | 6:41 AM | | procedure are in the | | | | PDT | | results section. | + +--------+ + + + | URINALYSIS WITH | Routin | 11/24/2014 | | Results for this | | MICROSCOPIC WITH | e | 8:01 PM | | procedure are in the | | CULTURE IF INDICATED | | PDT | | results section. | + +--------+ + + + | MYOGLOBIN, URINE | Routin | 11/24/2014 | | Results for this | | | e | 8:01 PM | | procedure are in the | | | | PDT | | results section. | + +--------+ + + + | SLIDE REVIEW, | Routin | 11/24/2014 | | Results for this | | PERIPHERAL SMEAR | e | 2:20 AM | | procedure are in the | | | | PDT | | results section. | + +--------+ + + + | TROPONIN I | Add-On | 11/24/2014 | | Results for this | | | | 2:20 AM | | procedure are in the | | | | PDT | | results section. | + +--------+ + + + | CK-MB | Routin | 11/24/2014 | | Results for this | | | e | 2:20 AM | | procedure are in the | | | | PDT | | results section. | + +--------+ + + + | CBC WITH | Routin | 11/24/2014 | | Results for this | | DIFFERENTIAL | e | 2:20 AM | | procedure are in the | | | | PDT | | results section. | + +--------+ + + + | PHOSPHORUS | Routin | 11/24/2014 | | Results for this | | | e | 2:20 AM | | procedure are in the | | | | PDT | | results section. | + +--------+ + + + | MAGNESIUM | Routin | 11/24/2014 | | Results for this | | | e | 2:20 AM | | procedure are in the | | | | PDT | | results section. | + +--------+ + + + | CK TOTAL | Routin | 11/24/2014 | | Results for this | | | e | 2:20 AM | | procedure are in the | | | | PDT | | results section. | + +--------+ + + + | COMPREHENSIVE | Routin | 11/24/2014 | | Results for this | | METABOLIC PANEL | e | 2:20 AM | | procedure are in the | | | | PDT | | results section. | + +--------+ + + + | URINALYSIS WITH | Routin | 11/24/2014 | | Results for this | | MICROSCOPIC WITH | e | 2:02 AM | | procedure are in the | | CULTURE IF INDICATED | | PDT | | results section. | + +--------+ + + + documented in this encounter Results CK Total (11/25/2014 6:41 AM PDT) + +-------+ + + + | Component | Value | Ref Range | Performed | Pathologist | | | | | At | Signature | + +-------+ + + + | CK TOTAL | 224 | 22 - 269 U/L | [facility] | | | | | | [facility] | | | | | | [facility] | | | | | | C[facility] - | | | | | | LABORATORY | | + +-------+ + + + + + | Specimen | + + | Blood | + + + + + + + | Performing | Address | City/State/Zipcode | Phone Number | | Organization | | | | + + + + + | [facility] | [address] | [place] | [phone] | | [facility] | | [address] | | | - LABORATORY | | | | + + + + + Comprehensive Metabolic Panel (11/25/2014 6:41 AM PDT) + + + + + + | Component | Value | Ref Range | Performed | Pathologist | | | | | At | Signature | + + + + + + | Na | 139 | 136 - 149 | [facility] | | | | | mmol/L | [facility] | | | | | | MEDICAL | | | | | | CENTER - | | | | | | LABORATORY | | + + + + + + | K | 4.4 | 3.5 - 5.1 | [facility] | | | | | mmol/L | [facility] | | | | | | MEDICAL | | | | | | CENTER - | | | | | | LABORATORY | | + + + + + + | Cl | 108 | 98 - 109 mmol/L | [facility] | | | | | | [facility] | | | | | | MEDICAL | | | | | | CENTER - | | | | | | LABORATORY | | + + + + + + | CO2 | 26 | 24 - 31 mmol/L | [facility] | | | | | | [facility] | | | | | | [facility] | | | | | | CENTER - | | | | | | LABORATORY | | + + + + + + | Anion Gap | 5 | 3 - 16 mmol/L | [facility] | | | | | | [facility] | | | | | | MEDICAL | | | | | | CENTER - | | | | | | LABORATORY | | + + + + + + | Glucose | 105 | 70 - 109 mg/dL | [facility] | | | | | | [facility] | | | | | | MEDICAL | | | | | | CENTER - | | | | | | LABORATORY | | + + + + + + | BUN | 16 | 7 - 18 mg/dL | [facility] | | | | | | [facility] | | | | | | [facility] | | | | | | CENTER - | | | | | | LABORATORY | | + + + + + + | Creatinine | 0.90 | 0.60 - 1.30 | [facility] | | | | | mg/dL | [facility] | | | | | [facility] | | | | | | CENTER - | | | | | | LABORATORY | | + + + + + + | eGFR, | >60Comment: GLOMERULAR | >=60 | [facility] | | | non- | FILTRATION | mL/min/1.73m2 | [facility] | | | [place] | RATE,ESTIMATED | | MEDICAL | | | | mL/min/[id number] than | | CENTER - | | | | 60 Chronic kidney | | LABORATORY | | | | disease,if found over a | | | | | | 3-month period.Less than | | | | | | 15 Kidney failureFor | | | | | | | | | | | | Americans,multiply the | | | | | | calculated GFR by 1.21. | | | | | | | | | | + + + + + + | Calcium | 9.0 | 8.3 - 10.5 | [facility] | | | | | mg/dL | [facility] | | | | | | MEDICAL | | | | | | CENTER - | | | | | | LABORATORY | | + + + + + + | Albumin | 3.3 | 3.2 - 5.0 g/dL | [facility] | | | | | | [facility] | | | | | | MEDICAL | | | | | | CENTER - | | | | | | LABORATORY | | + + + + + + | Bilirubin | 0.6 | 0.1 - 1.5 mg/dL | [facility] | | | Total | | | [facility] | | | | | | MEDICAL | | | | | | CENTER - | | | | | | LABORATORY | | + + + + + + | Total | 6.2 | 6.0 - 7.8 g/dL | [facility] | | | Protein | | | [facility] | | | | | | MEDICAL | | | | | | CENTER - | | | | | | LABORATORY | | + + + + + + | AST | 27 | 10 - 42 U/L | [facility] | | | | | | [facility] | | | | | | MEDICAL | | | | | | CENTER - | | | | | | LABORATORY | | + + + + + + | ALT | 37 | 6 - 45 U/L | [facility] | | | | | | [facility] | | | | | | MEDICAL | | | | | | CENTER - | | | | | | LABORATORY | | + + + + + + | Alkaline | 66 | 40 - 110 U/L | [facility] | | | Phosphatase | | | [facility] | | | | | | MEDICAL | | | | | | CENTER - | | | | | | LABORATORY | | + + + + + + | Globulin | 2.9 | g/dL | [facility] | | | | | | [facility] | | | | | | MED[facility] | | | | | | CENTER - | | | | | | LABORATORY | | + + + + + + | Albumin/Beth | 1.1 | | [facility] | | | bulin Ratio | | | [facility] | | | | | | MEDICAL | | | | | | CENTER - | | | | | | LABORATORY | | + + + + + + | BUN/Creatin | 17.8 | | [facility] | | | ine Ratio | | | [facility] | | | | | | MEDICAL | | | | | | CENTER - | | | | | | LABORATORY | | + + + + + + + + | Specimen | + + | Blood | + + + + + + + | Performing | Address | City/State/Zipcode | Phone Number | | Organization | | | | + + + + + | [facility] | [address] | [place] | [phone] | | [facility] | | [address] | | | - LABORATORY | | | | + + + + + CBC with Differential (11/25/2014 6:41 AM PDT) + + + + + + | Component | Value | Ref Range | Performed | Pathologist | | | | | At | Signature | + + + + + + | White Blood | 6.6 | 4.0 - 11.0 K/uL | [facility] | | | Cells | | | [facility] | | | | | | MEDICAL | | | | | | CENTER - | | | | | | LABORATORY | | + + + + + + | Red Blood | 3.94 (L) | 4.30 - 5.70 | [facility] | | | Cells | | M/uL | [facility] | | | | | | MEDICAL | | | | | | CENTER - | | | | | | LABORATORY | | + + + + + + | Hemoglobin | 12.1 (L) | 13.5 - 18.0 | [facility] | | | | | g/dL | [facility] | | | | | | MEDICAL | | | | | | CENTER - | | | | | | LABORATORY | | + + + + + + | Hematocrit | 35.9 (L) | 40.0 - 51.0 % | [facility] | | | | | | [facility] | | | | | | MEDICAL | | | | | | CENTER - | | | | | | LABORATORY | | + + + + + + | MCV | 91.0 | 83.0 - 101.0 fL | [facility] | | | | | | [facility] | | | | | | MEDICAL | | | | | | CENTER - | | | | | | LABORATORY | | + + + + + + | MCH | 30.6 | 28.0 - 35.0 pg | [facility] | | | | | | [facility] | | | | | | MEDICAL | | | | | | CENTER - | | | | | | LABORATORY | | + + + + + + | MCHC | 33.6 | 32.0 - 36.0 | [facility] | | | | | g/dL | [facility] | | | | | | MEDICAL | | | | | | CENTER - | | | | | | LABORATORY | | + + + + + + | RDW-CV | 13.4 | <15.0 % | [facility] | | | | | | [facility] | | | | | | MEDICAL | | | | | | CENTER - | | | | | | LABORATORY | | + + + + + + | Platelet | 55 (L) | 140 - 440 K/uL | [facility] | | | Count | | | [facility] | | | | | | MEDICAL | | | | | | CENTER - | | | | | | LABORATORY | | + + + + + + | MPV | 17.3 | fL | [facility] | | | | | | [facility] | | | | | | MEDICAL | | | | | | CENTER - | | | | | | LABORATORY | | + + + + + + | % | 62.7 | 45.0 - 82.0 % | [facility] | | | Neutrophils | | | [facility] | | | | | | MEDICAL | | | | | | CENTER - | | | | | | LABORATORY | | + + + + + + | % | 24.2 | 20.0 - 45.0 % | [facility] | | | Lymphocytes | | | [facility] | | | | | | MEDICAL | | | | | | CENTER - | | | | | | LABORATORY | | + + + + + + | % Monocytes | 9.8 | 4.0 - 12.0 % | [facility] | | | | | | [facility] | | | | | | MEDICAL | | | | | | CENTER - | | | | | | LABORATORY | | + + + + + + | % | 2.5 | 0.0 - 5.0 % | [facility] | | | Eosinophils | | | [facility] | | | | | | MEDICAL | | | | | | CENTER - | | | | | | LABORATORY | | + + + + + + | % Basophils | 0.8 | 0.0 - 1.0 % | [facility] | | | | | | [facility] | | | | | | MEDICAL | | | | | | CENTER - | | | | | | LABORATORY | | + + + + + + | Absolute | 4.10 | 1.80 - 8.50 | [facility] | | | Neutrophils | | K/uL | [facility] | | | | | | MEDICAL | | | | | | CENTER - | | | | | | LABORATORY | | + + + + + + | Absolute | 1.60 | 0.60 - 3.20 | [facility] | | | Lymphocytes | | K/uL | [facility] | | | | | | MEDICAL | | | | | | CENTER - | | | | | | LABORATORY | | + + + + + + | Absolute | 0.60 | 0.00 - 1.00 | [facility] | | | Monocytes | | K/uL | [facility] | | | | | | MEDICAL | | | | | | CENTER - | | | | | | LABORATORY | | + + + + + + | Absolute | 0.20 | 0.00 - 0.40 | [facility] | | | Eosinophils | | K/uL | [facility] | | | | | | MEDICAL | | | | | | CENTER - | | | | | | LABORATORY | | + + + + + + | Absolute | 0.00 | 0.00 - 0.10 | [facility] | | | Basophils | | K/uL | [facility] | | | | | | MEDICAL | | | | | | CENTER - | | | | | | LABORATORY | | + + + + + + + + | Specimen | + + | Blood | + + + + + + + | Performing | Address | City/State/Zipcode | Phone Number | | Organization | | | | + + + + + | [facility] | [address] | [place] | [phone] | | [facility] | | [address] | | | - LABORATORY | | | | + + + + + Myoglobin, Urine (11/24/2014 8:01 PM PDT) + + + + + + | Component | Value | Ref Range | Performed | Pathologist | | | | | At | Signature | + + + + + + | Myoglobin | <1Comment: The pH of | 0 - 1 mg/L | [facility] | | | Urine | this sample is 7. | | [facility] | | | | Urine for myoglobin | | | | | | should have the | | | | | | pHadjusted to between | | | | | | 8.0 - 9.0, as myoglobin | | | | | | is unstable in | | | | | | urine.Results may not | | | | | | reflect the true status | | | | | | of the | | | | | | patient.INTERPRETIVE | | | | | | INFORMATION: | | | | | | Myoglobin, | | | | | | UrinePatients with urine | | | | | | myoglobin greater than | | | | | | 15 mg/L are at risk | | | | | | ofacute renal failure. | | | | | | Usual results are less | | | | | | than 1 mg/L. | | | | | | Resultsbetween 1 and 15 | | | | | | mg/L are associated with | | | | | | vigorous | | | | | | exercise,myocardial | | | | | | infarction, mild muscle | | | | | | injury and other | | | | | | conditions.Test | | | | | | developed and | | | | | | characteristics | | | | | | determined by [facility] | | | | | | [facility].See | | | | | | Compliance Statement B: | | | | | | [employer]/CSTesting | | | | | | Performed: [facility] | | | | | | [facility] | | | | | | [place] [address] | | | | + + + + + + + + | Specimen | + + | Urine specimen | | (specimen) | + + + + + + + | Performing | Address | City/State/Zipcode | Phone Number | | Organization | | | | + + + + + | [facility] | [address] | [place] [address] | [phone] | + + + + + Urinalysis with Microscopic with Culture if Indicated (11/24/2014 8:01 PM PDT) + + + + + + | Component | Value | Ref Range | Performed | Pathologist | | | | | At | Signature | + + + + + + | Color, | Yellow | Light Yellow, | [facility] | | | Urine | | Yellow | [facility] | | | | | | MEDICAL | | | | | | CENTER - | | | | | | LABORATORY | | + + + + + + | Clarity, | Clear | Clear | [facility] | | | Urine | | | [facility] | | | | | | MEDICAL | | | | | | CENTER - | | | | | | LABORATORY | | + + + + + + | pH, Urine | 5.0 | 5.0 - 8.0 | [facility] | | | | | | [facility] | | | [facility] | | MEDICAL | | | | | | CENTER - | | | | | | LABORATORY | | + + + + + + | Specific | 1.015 | 1.001 - 1.030 | [facility] | | | [place], | | | [facility] | | | Urine | | | MEDICAL | | | | | | CENTER - | | | | | | LABORATORY | | + + + + + + | Protein, | Negative | Negative | [facility] | | | Urine | | | [facility] | | | | | | MEDICAL | | | | | | CENTER - | | | | | | LABORATORY | | + + + + + + | Blood, | Small (A) | Negative | [facility] | | | Urine | | | [facility] | | | | | | MEDICAL | | | | | | CENTER - | | | | | | LABORATORY | | + + + + + + | Glucose, | Negative | Negative | [facility] | | | Urine | | | [facility] | | | | | | MEDICAL | | | | | | CENTER - | | | | | | LABORATORY | | + + + + + + | Ketones, | Negative | Negative | [facility] | | | Urine | | | [facility] | | | | | | MEDICAL | | | | | | CENTER - | | | | | | LABORATORY | | + + + + + + | Bilirubin, | Negative | Negative | [facility] | | | Urine | | | [facility] | | | | | | MEDICAL | | | | | | CENTER - | | | | | | LABORATORY | | + + + + + + | Nitrite, | Negative | Negative | [facility] | | | Urine | | | [facility] | | | | | | MEDICAL | | | | | | CENTER - | | | | | | LABORATORY | | + + + + + + | Leukocyte | Negative | Negative | [facility] | | | Esterase, | | | [facility] | | | Urine | | | MEDICAL | | | | | | CENTER - | | | | | | LABORATORY | | + + + + + + | Urobilinoge | 0.2 E.U./dL | 0.2 E.U./dL, | [facility] | | | n, Urine | | 1.0 E.U./dL | [facility] | | | | | | MEDICAL | | | | | | CENTER - | | | | | | LABORATORY | | + + + + + + | White Blood | 0-2 | 0 - 2 /HPF | [facility] | | | Cells, | | | [facility] | | | Urine | | | MEDICAL | | | | | | CENTER - | | | | | | LABORATORY | | + + + + + + | Red Blood | 0-2 | 0 - 2 /HPF | [facility] | | | Cells, | | | [facility] | | | Urine | | | MEDICAL | | | | | | CENTER - | | | | | | LABORATORY | | + + + + + + | Squamous | 0-2 | 0 - 2 /LPF | [facility] | | | Epithelial | | | [facility] | | | Cells, | | | MEDICAL | | | Urine | | | CENTER - | | | | | | LABORATORY | | + + + + + + | Bacteria, | Negative | Negative /HPF | [facility] | | | Urine | | | [facility] | | | | | | MEDICAL | | | | | | CENTER - | | | | | | LABORATORY | | + + + + + + + + | Specimen | + + | Urine | + + + + + + + | Performing | Address | City/State/Zipcode | Phone Number | | Organization | | | | + + + + + | [facility] | [address] | [place] | [phone] | | [facility] | | [address] | | | - LABORATORY | | | | + + + + + Slide Review, Peripheral Smear (11/24/2014 2:20 AM PDT) + + + + + + | Component | Value | Ref Range | Performed | Pathologist | | | | | At | Signature | + + + + + + | RBC | Normal | | [facility] | | | Morphology | | | [facility] | | | | | | MEDICAL | | | | | | CENTER - | | | | | | LABORATORY | | + + + + + + | WBC | Normal | | [facility] | | | Morphology | | | [facility] | | | | | | MEDICAL | | | | | | CENTER - | | | | | | LABORATORY | | + + + + + + | Platelet | Adequate | Adequate | [facility] | | | Estimate | | | [facility] | | | | | | MEDICAL | | | | | | CENTER - | | | | | | LABORATORY | | + + + + + + | Giant | Present (A) | Not Present | [facility] | | | Platelets | | | [facility] | | | | | | MEDICAL | | | | | | CENTER - | | | | | | LABORATORY | | + + + + + + + + | Specimen | + + | Blood | + + + + + + + | Performing | Address | City/State/Zipcode | Phone Number | | Organization | | | | + + + + + | [facility] | [address] | [place] | [phone] | | [facility] | | [address] | | | - LABORATORY | | | | + + + + + Troponin I (11/24/2014 2:20 AM PDT) + + + + + + | Component | Value | Ref Range | Performed | Pathologist | | | | | At | Signature | + + + + + + | Troponin I | 0.03Comment: Reference | <0.06 ng/mL | [facility] | | | | Ranges:0.00-0.06 = | | [facility] | | | | NORMAL>0.06 = | | MEDICAL | | | | SUSPICIOUS FOR | | CENTER - | | | | MYOCARDIAL DAMAGE NOTE: | | LABORATORY | | | | Values greater than 0.50 | | | | | | ng/mL have been shown | | | | | | to be strongly | | | | | | associated with acute | | | | | | myocardial infarction. | | | | | | The [place] [employer] | | | | | | Cardiology (ACC) | | | | | | recommends a decision | | | | | | limit of 0.06 ng/mL for | | | | | | this assay. Results | | | | | | greater than 0.06 can | | | | | | reflect a pre-infarct | | | | | | acute coronary syndrome, | | | | | | but can also reflect | | | | | | myocardial necrosis or | | | | | | injury that is not due | | | | | | to coronary artery | | | | | | disease. Some of these | | | | | | causes are sepsis, | | | | | | hypocolemia, atrial | | | | | | fibrillation, heart | | | | | | failure, pulmonary | | | | | | embolism, myocarditis, | | | | | | myocardial contusion, | | | | | | and renal failure. The | | | | | | diagnosis of myocardial | | | | | | infarction should be | | | | | | based on a combination | | | | | | of the patient's | | | | | | clinical presentation | | | | | | and the clinical | | | | | | laboratory test results | | | | | | (especially serial | | | | | | troponin levels). | | | | + + + + + + + + | Specimen | + + | Blood | + + + + + + + | Performing | Address | City/State/Zipcode | Phone Number | | Organization | | | | + + + + + | [facility] | [address] | [place] | [phone] | | [facility] | | [address] | | | - LABORATORY | | | | + + + + + CK-MB (11/24/2014 2:20 AM PDT) + + + + + + | Component | Value | Ref Range | Performed | Pathologist | | | | | At | Signature | + + + + + + | CK-MB | 10.2 (H) | 0.6 - 6.3 ng/mL | [facility] | | | | | | [facility] | | | | | | [facility]ICAL | | | | | | CENTER - | | | | | | LABORATORY | | + + + + + + + + | Specimen | + + | Blood | + + + + + + + | Performing | Address | City/State/Zipcode | Phone Number | | Organization | | | | + + + + + | [facility] | [address] | [place] | [phone] | | [facility] | | [address] | | | - LABORATORY | | | | + + + + + CK Total (11/24/2014 2:20 AM PDT) + +---------+ + + + | Component | Value | Ref Range | Performed | Pathologist | | | | | At | Signature | + +---------+ + + + | CK TOTAL | 394 (H) | 22 - 269 U/L | [facility] | | | | | | [facility] | | | | | | MEDICAL | | | | | | CENTER - | | | | | | LABORATORY | | + +---------+ + + + + + | Specimen | + + | Blood | + + + + + + + | Performing | Address | City/State/Zipcode | Phone Number | | Organization | | | | + + + + + | [facility] | [address] | [place] | [phone] | | [facility] | | [address] | | | - LABORATORY | | | | + + + + + Magnesium (11/24/2014 2:20 AM PDT) + +-------+ + + + | Component | Value | Ref Range | Performed | Pathologist | | | | | At | Signature | + +-------+ + + + | Magnesium | 1.9 | 1.8 - 2.5 mg/dL | [facility] | | | | | | [facility] | | | | | | MEDICAL | | | | | | CENTER - | | | | | | LABORATORY | | + +-------+ + + + + + | Specimen | + + | Blood | + + + + + + + | Performing | Address | City/State/Zipcode | Phone Number | | Organization | | | | + + + + + | [facility] | [address] | [place] | [phone] | | [facility] | | [address] | | | - LABORATORY | | | | + + + + + Phosphorus (11/24/2014 2:20 AM PDT) + +-------+ + + + | Component | Value | Ref Range | Performed | Pathologist | | | | | At | Signature | + +-------+ + + + | Phosphorus | 4.3 | 2.5 - 4.6 mg/dL | [facility] | | | | | | [facility] | | | | | | MEDICAL | | | | | | CENTER - | | | | | | LABORATORY | | + +-------+ + + + + + | Specimen | + + | Blood | + + + + + + + | Performing | Address | City/State/Zipcode | Phone Number | | Organization | | | | + + + + + | [facility] | [address] | [place] | [phone] | | [facility] | | [address] | | | - LABORATORY | | | | + + + + + CBC with Differential (11/24/2014 2:20 AM PDT) + + + + + + | Component | Value | Ref Range | Performed | Pathologist | | | | | At | Signature | + + + + + + | White Blood | 11.4 (H) | 4.0 - 11.0 K/uL | [facility] | | | Cells | | | [facility] | | | | | | MEDICAL | | | | | | CENTER - | | | | | | LABORATORY | | + + + + + + | Red Blood | 4.32 | 4.30 - 5.70 | [facility] | | | Cells | | M/uL | [facility] | | | | | | MEDICAL | | | | | | CENTER - | | | | | | LABORATORY | | + + + + + + | Hemoglobin | 13.0 (L) | 13.5 - 18.0 | [facility] | | | | | g/dL | [facility] | | | | | | MEDICAL | | | | | | CENTER - | | | | | | LAB[facility]ATORY | | + + + + + + | Hematocrit | 39.5 (L) | 40.0 - 51.0 % | [facility] | | | | | | [facility] | | | | | | [facility] | | | | | | [facility] - | | | | | | LAB[facility]ATORY | | + + + + + + | MCV | 91.6 | 83.0 - 101.0 fL | [facility] | | | | | | [facility] | | | | | | [facility] | | | | | | [facility] - | | | | | | LAB[facility]ATORY | | + + + + + + | MCH | 30.1 | 28.0 - 35.0 pg | [facility] | | | | | | [facility] | | | | | | [facility] | | | | | | [facility] - | | | | | | LAB[facility]ATORY | | + + + + + + | MCHC | 32.8 | 32.0 - 36.0 | [facility] | | | | | g/dL | [facility] | | | | | | [facility] | | | | | | [facility] - | | | | | | LAB[facility]ATORY | | + + + + + + | RDW-CV | 13.7 | <15.0 % | [facility] | | | | | | [facility] | | | | | | [facility] | | | | | | [facility] - | | | | | | LAB[facility]ATORY | | + + + + + + | Platelet | 73 (L) | 140 - 440 K/uL | [facility] | | | Count | | | [facility] | | | | | | [facility] | | | | | | [facility] - | | | | | | LAB[facility]ATORY | | + + + + + + | MPV | 16.8 | fL | [facility] | | | | | | [facility] | | | | | | [facility] | | | | | | [facility] - | | | | | | LAB[facility]ATORY | | + + + + + + | % | 71.1 | 45.0 - 82.0 % | [facility] | | | Neutrophils | | | [facility] | | | | | | [facility] | | | | | | [facility] - | | | | | | LAB[facility]ATORY | | + + + + + + | % | 19.2 (L) | 20.0 - 45.0 % | [facility] | | | Lymphocytes | | | [facility] | | | | | | [facility] | | | | | | [facility] - | | | | | | LAB[facility]ATORY | | + + + + + + | % Monocytes | 8.1 | 4.0 - 12.0 % | [facility] | | | | | | [facility] | | | | | | [facility] | | | | | | [facility] - | | | | | | LAB[facility]ATORY | | + + + + + + | % | 1.0 | 0.0 - 5.0 % | [facility] | | | Eosinophils | | | [facility] | | | | | | [facility] | | | | | | [facility] - | | | | | | LAB[facility]ATORY | | + + + + + + | % Basophils | 0.6 | 0.0 - 1.0 % | [facility] | | | | | | [facility] | | | | | | [facility] | | | | | | [facility] - | | | | | | LAB[facility]ATORY | | + + + + + + | Absolute | 8.10 | 1.80 - 8.50 | [facility] | | | Neutrophils | | K/uL | [facility] | | | | | | [facility] | | | | | | [facility] - | | | | | | LAB[facility]ATORY | | + + + + + + | Absolute | 2.20 | 0.60 - 3.20 | [facility] | | | Lymphocytes | | K/uL | [facility] | | | | | | [facility] | | | | | | [facility] - | | | | | | LABORATORY | | + + + + + + | Absolute | 0.90 | 0.00 - 1.00 | [facility] | | | Monocytes | | K/uL | [facility] | | | | | | [facility] | | [facility] | | | [facility] - | | | | | | LAB[facility]ATORY | | + + + + + + | Absolute | 0.10 | 0.00 - 0.40 | [facility] | | | Eosinophils | | K/uL | [facility] | | | | | | [facility] | | | | | | [facility] - | | | | | | LABORATORY | | + + + + + + | Absolute | 0.10 | 0.00 - 0.10 | [facility] | | | Basophils | | K/uL | [facility] | | | | | | [facility] | | | | | | [facility] - | | | | | | LABORATORY | | + + + + + + + + | Specimen | + + | Blood | + + + + + + + | Performing | Address | City/State/Zipcode | Phone Number | | Organization | | | | + + + + + | [facility] | [address] | [place] | [phone] | | [facility] | | [address] | | | - LABORATORY | | | | + + + + + Comprehensive Metabolic Panel (11/24/2014 2:20 AM PDT) + + + + + + | Component | Value | Ref Range | Performed | Pathologist | | | | | At | Signature | + + + + + + | Na | 134 (L) | 136 - 149 | [facility] | | | | | mmol/L | [facility] | | | | | | [facility] | | | | | | [facility] - | | | | | | LABORATORY | | + + + + + + | K | 4.5 | 3.5 - 5.1 | [facility] | | | | | mmol/L | [facility] | | | | | | [facility] | | | | | | CENTER - | | | | | | LABORATORY | | + + + + + + | Cl | 103 | 98 - 109 mmol/L | [facility] | | | | | | [facility] | | | | | | [facility] | | | | | | CENTER - | | | | | | LABORATORY | | + + + + + + | CO2 | 24 | 24 - 31 mmol/L | [facility] | | | | | | [facility] | | | | | | [facility] | | | | | | CENTER - | | | | | | LABORATORY | | + + + + + + | Anion Gap | 7 | 3 - 16 mmol/L | [facility] | | | | | | [facility] | | | | | | [facility] | | | | | | CENTER - | | | | | | LABORATORY | | + + + + + + | Glucose | 106 | 70 - 109 mg/dL | [facility] | | | | | | [facility] | | [facility] | | [facility] | | | | | | CENTER - | | | | | | LABORATORY | | + + + + + + | BUN | 25 (H) | 7 - 18 mg/dL | [facility] | | | | | | [facility] | | [facility] | [facility] | | | | | | CENTER - | | | | | | LABORATORY | | + + + + + + | Creatinine | 1.92 (H) | 0.60 - 1.30 | [facility] | | | | | mg/dL | [facility] | | | | | | MEDICAL | | | | | | CENTER - | | | | | | LABORATORY | | + + + + + + | eGFR, | 37 (L)Comment: | >=60 | [facility] | | | non- | GLOMERULAR FILTRATION | mL/min/1.73m2 | [facility] | | | [place] | RATE,ESTIMATED | | MEDICAL | | | | mL/min/1.32f2Eicz than | | CENTER - | | | | 60 Chronic kidney | | LABORATORY | | | | disease,if found over a | | | | | | 3-month period.Less than | | | | | | 15 Kidney failureFor | | | | | | | | | | | | Americans,multiply the | | | | | | calculated GFR by 1.21. | | | | | | | | | | + + + + + + | Calcium | 8.5 | 8.3 - 10.5 | [facility] | | | | | mg/dL | [facility] | | | | | | MEDICAL | | | | | | CENTER - | | | | | | LABORATORY | | + + + + + + | Albumin | 3.7 | 3.2 - 5.0 g/dL | [facility] | | | | | | [facility] | | | | | | [facility] | | | | | | CENTER - | | | | | | LABORATORY | | + + + + + + | Bilirubin | 0.5 | 0.1 - 1.5 mg/dL | [facility] | | | Total | | | [facility] | | | | | | [facility]ICAL | | | | | | CENTER - | | | | | | LABORATORY | | + + + + + + | Total | 6.5 | 6.0 - 7.8 g/dL | [facility] | | | Protein | | | [facility] | | | | | | MEDICAL | | | | | | CENTER - | | | | | | LABORATORY | | + + + + + + | AST | 25 | 10 - 42 U/L | [facility] | | | | | | [facility] | | | | | | [facility]ICAL | | | | | | CENTER - | | | | | | LABORATORY | | + + + + + + | ALT | 35 | 6 - 45 U/L | [facility] | | | | | | [facility] | | | | | | MEDICAL | | | | | | CENTER - | | | | | | LABORATORY | | + + + + + + | Alkaline | 81 | 40 - 110 U/L | [facility] | | | Phosphatase | | | [facility] | | | | | | [facility]ICAL | | | | | | CENTER - | | | | | | LABORATORY | | + + + + + + | Globulin | 2.8 | g/dL | [facility] | | | | | | [facility] | | | | | | [facility]ICAL | | | | | | CENTER - | | | | | | LABORATORY | | + + + + + + | Albumin/Beth | 1.3 | | [facility] | | | bulin Ratio | | | [facility] | | | | | [facility]ICAL | | | | | | CENTER - | | | | | | LABORATORY | | + + + + + + | BUN/Creatin | 13.0 | | [facility] | | | ine Ratio | | | [facility] | [facility] | [facility] | | | | | | CENTER - | | | | | | LABORATORY | | + + + + + + + + | Specimen | + + | Blood | + + + + + + + | Performing | Address | City/State/Zipcode | Phone Number | | Organization | | | | + + + + + | [facility] | [address] | [place] | [phone] | | [facility] | | [address] | | | - LABORATORY | | | | + + + + + Urinalysis with Microscopic with Culture if Indicated (11/24/2014 2:02 AM PDT) + + + + + + | Component | Value | Ref Range | Performed | Pathologist | | | | | At | Signature | + + + + + + | Color, | Yellow | Light Yellow, | [facility] | | | Urine | | Yellow | [facility] | | | | | | MEDICAL | | | | | | CENTER - | | | | | | LABORATORY | | + + + + + + | Clarity, | Clear | Clear | [facility] | | | Urine | | | [facility] | | | | | | MEDICAL | | | | | | CENTER - | | | | | | LABORATORY | | + + + + + + | pH, Urine | 5.0 | 5.0 - 8.0 | [facility] | | | | | | [facility] | | | | | | MEDICAL | | | | | | CENTER - | | | | | | LABORATORY | | + + + + + + | Specific | 1.020 | 1.001 - 1.030 | [facility] | | | [place], | | | [facility] | | | Urine | | | MEDICAL | | | | | | CENTER - | | | | | | LABORATORY | | + + + + + + | Protein, | Negative | Negative | [facility] | | | Urine | | | [facility] | | | | | | MEDICAL | | | | | | CENTER - | | | | | | LABORATORY | | + + + + + + | Blood, | Trace (A) | Negative | [facility] | | | Urine | | | [facility] | | | | | | MEDICAL | | | | | | CENTER - | | | | | | LABORATORY | | + + + + + + | Glucose, | Negative | Negative | [facility] | | | Urine | | | [facility] | | | | | | MEDICAL | | | | | | CENTER - | | | | | | LABORATORY | | + + + + + + | Ketones, | Negative | Negative | [facility] | | | Urine | | | [facility] | | | | | | MEDICAL | | | | | | CENTER - | | | | | | LABORATORY | | + + + + + + | Bilirubin, | Negative | Negative | [facility] | | | Urine | | | [facility] | | | | | | MEDICAL | | | | | | CENTER - | | | | | | LABORATORY | | + + + + + + | Nitrite, | Negative | Negative | [facility] | | | Urine | | | [facility] | | | | | | MEDICAL | | | | | | CENTER - | | | | | | LABORATORY | | + + + + + + | Leukocyte | Negative | Negative | [facility] | | | Esterase, | | | [facility] | | | Urine | | | MEDICAL | | | | | | CENTER - | | | | | | LABORATORY | | + + + + + + | Urobilinoge | 0.2 E.U./dL | 0.2 E.U./dL, | [facility] | | | n, Urine | | 1.0 E.U./dL | [facility] | | | | | | MEDICAL | | | | | | CENTER - | | | | | | LABORATORY | | + + + + + + | White Blood | 0-2 | 0 - 2 /HPF | [facility] | | | Cells, | | | [facility] | | | Urine | | | MEDICAL | | | | | | CENTER - | | | | | | LABORATORY | | + + + + + + | Red Blood | 0-2 | 0 - 2 /HPF | [facility] | | | Cells, | | | [facility] | | | Urine | | | MEDICAL | | | | | | CENTER - | | | | | | LABORATORY | | + + + + + + | Squamous | 0-2 | 0 - 2 /LPF | [facility] | | | Epithelial | | | [facility] | | | Cells, | | | MEDICAL | | | Urine | | | CENTER - | | | | | | LABORATORY | | + + + + + + | Bacteria, | Negative | Negative /HPF | [facility] | | | Urine | | | [facility] | | | | | | MEDICAL | | | | | | CENTER - | | | | | | LABORATORY | | + + + + + + | Hyaline | 0-2 | 0 - 2 /LPF | [facility] | | | Casts, | | | [facility] | | | Urine | | | MEDICAL | | | | | | CENTER - | | | | | | LABORATORY | | + + + + + + + + | Specimen | + + | Urine | + + + + + + + | Performing | Address | City/State/Zipcode | Phone Number | | Organization | | | | + + + + + | [facility] 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 | + + | Hypertension Unspecified essential hypertension | + + | Smoking Tobacco use disorder | + + documented in this encounter Administered Medications + +--------+ +--------+------+------+ | Medication Order | MAR | Action | Dose | Rate | Site | | | Action | Date | | | | + +--------+ +--------+------+------+ | acetaminophen (TYLENOL) tablet | Given | 11/25/19 | 650 mg | | | | 650 mg 650 mg, Oral, EVERY 4 | | 15 9:00 | | | | | HOURS PRN, Pain, or fever >= 38.3 | | PM PDT | | | | | C (101.5 F), Starting Sun11/24/14 | | | | | | | at 0202 | | | | | | + +--------+ +--------+------+------+ +-------+ +--------+---+---+ | Given | 11/25/19 | 650 mg | | | | | 15 3:28 | | | | | | AM PDT | | | | +-------+ +--------+---+---+ +---+---+ | | | +---+---+ + +-------+ +------+---+---+ | amLODIPine (NORVASC) tablet 5 | Given | 11/26/19 | 5 mg | | | | mg 5 mg, Oral, DAILY, First dose | | 15 8:06 | | | | | on Sun11/24/14 at 1845 | | AM PDT | | | | + +-------+ +------+---+---+ +---+---+ | | | +---+---+ + +-------+ +--------+---+---+ | docusate sodium (COLACE) | Given | 11/25/19 | 100 mg | | | | capsule 100 mg 100 mg, Oral, 2 | | 15 8:58 | | | | | TIMES DAILY PRN, Constipation, | | PM PDT | | | | | Starting Sun11/24/14 at 0202, 1st | | | | | | | line agent for constipation | | | | | | | relief., | | | | | | + +-------+ +--------+---+---+ +---+---+ | | | +---+---+ + +-------+ +-------+---+---+ | metoprolol tartrate (LOPRESSOR) | Given | 11/26/19 | 25 mg | | | | tablet 25 mg 25 mg, Oral, 2 | | 15 8:06 | | | | | TIMES DAILY, First dose on Sun | | AM PDT | | | | | 11/24/14 at 2100 | | | | | | + +-------+ +-------+---+---+ +-------+ +-------+---+---+ | Given | 11/25/19 | 25 mg | | | | | 15 8:58 | | | | | | PM PDT | | | | +-------+ +-------+---+---+ +---+---+ | | | +---+---+ + +---------+ +---------+---+ + | nicotine (NICODERM) 21 mg/24 hr | Patch | 11/25/19 | 1 patch | | Deltoid- | | 1 patch 1 patch, Transdermal, | Applied | 15 9:28 | | | Left | | DAILY, First dose on Sun11/24/14 | | PM PDT | | | | | at 0215 | | | | | | + +---------+ +---------+---+ + + + +---------+---+ + | Patch Applied | 11/25/19 | 1 patch | | Deltoid- | | | 15 2:23 | | | Left | | | AM PDT | | | | + + +---------+---+ + +---+---+ | | | +---+---+ + +---------+ +---+-------+---+ | sodium chloride 0.9% (NS) | New Bag | 11/26/19 | | 100 | | | infusion at 100 mL/hr, | | 15 2:58 | | mL/hr | | | Intravenous, CONTINUOUS, Starting | | AM PDT | | | | | Sun11/24/14 at 0230 | | | | | | + +---------+ +---+-------+---+ +---------+ +---+-------+---+ | New Bag | 11/25/19 | | 100 | | | | 15 3:12 | | mL/hr | | | | PM PDT | | | | +---------+ +---+-------+---+ | New Bag | 11/25/19 | | 100 | | | | 15 5:13 | | mL/hr | | | | AM PDT | | | | +---------+ +---+-------+---+ +---+---+ | | | +---+---+ + +-------+ +------+---+---+ | zolpidem (AMBIEN) tablet 5 mg | Given | 11/25/19 | 5 mg | | | | 5 mg, Oral, NIGHTLY PRN, | | 15 9:06 | | | | | Insomnia, Starting Tu11/24/14 at | | PM PDT | | | | | 0202 | | | | | | + +-------+ +------+---+---+ +---+---+ | | | +---+---+ documented in this encounter
--- OUTSIDE RECORDS SUMMARY | ~2020-01-26 | XMS | Encounter Summary ---
Demographics + + + | Address | [address] | | | [place] [address] | + + + | Home Phone [...] [address] | | | | | [address], [place] | | | | | [address] | | + + + + + | Maureen Harris | ECON | Unknown | | + + + + + Care Team Providers + +------+ + | Care Riddler Operator Name | Role | Phone | + +------+ + PCP | Unavailable | + +------+ + Reason for Visit + + + | Reason | Comments | + + + | Numbness | right greater than left | + + + Service/Procedure (Routine) +--------+--------+ + + + + | Status | Reason | Specialty | Diagnoses / | Referred By | Referred To | | | | | Procedures | Contact | Contact | +--------+--------+ + + + + | Closed | | Physical | Diagnoses | Nancy, | Jasmeet | | | | Medicine and | Disturbance | Desmond | Marvel Guadarrama MD | | | | Rehabilitatio | of skin | MD Eitan | [address] | | | | n | sensation | [address] [place] | | | | | Procedures | St | [place] | | | | | [place] | [place], | [address] Phone: | | | | | &/SENS [address] | [place] [address] | [phone] | | | | | NRV CNDJ | Phone: | Fax: | | | | | [facility] | [phone] | [phone] | | | | | [facility] [place] | Fax: | | | | | | | [phone] | | +--------+--------+ + + + + Encounter Details +--------+ + + + + | Date | Type | Department | Care Team | Description | +--------+ + + + + | 07/25/ | Procedure | [facility] | Marvel Alamo | Bilateral carpal | | 2016 | visit | PHYSIATRY [address] | TMD [address] | tunnel syndrome | | | | [address] | [place] | (Primary Dx) | | | | [place] | [id number] | | | | | [address] | | | | | | [phone] | | | +--------+ + + + [...] + + + + | Weight | 86.2 kg (190 lb) | 07/26/2015 11:00 AM | | | | | PST | | + + + + + | Height | 170.2 cm (5' 7") | 07/26/2015 11:00 AM | | | | | PST | | + + + + + | Body Mass Index | 29.76 | 07/26/2015 11:00 AM | | | [...] documented as of this encounter Progress Notes Marvel Alamo MD - 07/26/2015 12:23 PM PST [facility] Musculoskeletal, Sports and Spine, Physiatry [address] [address] Test Date: 07/26/2015 Patient Name: Abdullahi Parker : 1965 Physician: Marvel Alamo MD MR #: [id number] Sex: Male Referring Physician: Desmond Cruz MD HISTORY: The patient is a very pleasant 49 year-old right-handed male who is being seen to day at the request of Dr. Desmond Cruz for complaints of bilateral upper extremity numbne ss, tingling, weakness and pain. 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 He has had some symptoms on and off for yea rs but it has gotten much worse in the last 6 months. He reports that he notices the sympto ms on the right hand most when he is resting such as at night while he is trying to sleep. The left hand symptoms are noticed mostly when he is at work. The patient reports that the numbness primarily affects the 1st-3rd digits. He denies any history of diabetes, hypothyro idism, alcoholism, cancer, renal failure or vitamin deficiency. Nerve Conduction Studies Anti Sensory Summary Table Site NR Peak (ms) Norm Peak (ms) P-T Amp (V) Norm P-T Amp Site1 Site2 Delta-P (ms) Dist (cm) Dragan (m/s) Norm Dragan (m/s) Left Radial Anti Sensory (Base 1st Digit) Wrist 2.6 <3.1 19.2 Wrist Base 1st Digit 2.6 10.0 38 Right Radial Anti Sensory (Base 1st Digit) Wrist 2.4 <3.1 27.8 Wrist Base 1st Digit 2.4 10.0 42 Motor Summary Table Site NR Onset (ms) Norm Onset (ms) O-P Amp (mV) Norm O-P Amp Site1 Site2 Delta-0 (ms) Dist (cm) Dragan (m/s) Norm Dragan (m/s) Left Median Motor (Abd Poll Brev) Wrist *5.2 <4.2 8.9 >5 Elbow Wrist 3.7 20.0 54 >50 Elbow 8.9 8.6 Right Median Motor (Abd Poll Brev) Wrist *7.7 <4.2 *4.9 >5 Elbow Wrist 4.1 21.0 51 >50 Elbow 11.8 3.1 Left Ulnar Motor (Abd Dig Minimi) Wrist 2.8 <4.2 10.8 >3 B Elbow Wrist 3.2 19.0 59 >53 B Elbow 6.0 10.7 A Elbow B Elbow 1.8 10.0 56 >53 A Elbow 7.8 10.6 Right Ulnar Motor (Abd Dig Minimi) Wrist 3.2 <4.2 11.6 >3 B Elbow Wrist 3.2 19.0 59 >53 B Elbow 6.4 10.9 A Elbow B Elbow 1.3 9.0 69 >53 A Elbow 7.7 10.9 Comparison Summary Table Site NR Peak (ms) Norm Peak (ms) P-T Amp (V) Site1 Site2 Delta-P (ms) Norm Delta (ms) Left Median/Ulnar Palm Comparison (Wrist - 8cm) Median Palm *2.9 <2.2 45.7 Median Palm Ulnar Palm *1.0 <0.3 Ulnar Palm 1.9 <2.2 39.5 Right Median/Ulnar Palm Comparison (Wrist - 8cm) Median Palm *NR <2.2 Median Palm Ulnar Palm <0.3 Ulnar Palm 1.9 <2.2 27.5 EMG Side Muscle Nerve Root Ins Act Fibs Psw Amp Dur Poly Recrt Int Pat Comment Right Deltoid Axillary C5-6 Nml Nml Nml Nml Nml 0 Nml Nml Right Biceps Musculocut C5-6 Nml Nml Nml Nml Nml 0 Nml Nml Right Triceps Radial C6-7-8 Nml Nml Nml Nml Nml 0 Nml Nml Right PronatorTeres Median C6-7 Nml Nml Nml Nml Nml 0 Nml Nml Right 1stDorInt Ulnar C8-T1 Nml Nml Nml Nml Nml 0 Nml Nml Nerve Conduction Studies Motor Left/Right Comparison Site L Lat (ms) R Lat (ms) L-R Lat (ms) L Amp (mV) R Amp (mV) L-R Amp (%) Site1 Site2 L Ve l (m/s) R Dragan (m/s) L-R Dragan (m/s) Median Motor (Abd Poll Brev) Wrist *5.2 *7.7 *2.5 8.9 *4.9 44.9 Elbow Wrist 54 51 3 Elbow 8.9 11.8 2.9 8.6 3.1 64.0 Ulnar Motor (Abd Dig Minimi) Wrist 2.8 3.2 0.4 10.8 11.6 6.9 B Elbow Wrist 59 59 0 B Elbow 6.0 6.4 0.4 10.7 10.9 1.8 A Elbow B Elbow 56 69 13 A Elbow 7.8 7.7 0.1 10.6 10.9 2.8 Anti Sensory Left/Right Comparison Site L Lat (ms) R Lat (ms) L-R Lat (ms) L Amp (V) R Amp (V) L-R Amp (%) Site1 Site2 L Dragan (m/s) R Dragan (m/s) L-R Dragan (m/s) Radial Anti Sensory (Base 1st Digit) Wrist 2.6 2.4 0.2 19.2 27.8 30.9 Wrist Base 1st Digit 38 42 4 Comparison Left/Right Comparison Site L Lat (ms) R Lat (ms) L-R Lat (ms) L Amp (V) R Amp (V) L-R Amp (%) Median/Ulnar Palm Comparison (Wrist - 8cm) Median Palm *2.9 45.7 Ulnar Palm 1.9 1.9 0.0 39.5 27.5 30.4 NCV FINDINGS: Evaluation of the Left median motor nerve showed prolonged distal onset latency. The Right median motor nerve showed prolonged distal onset latency and reduced amplitude. The Left m edian/ulnar (palm) comparison nerve showed prolonged distal peak latency (Median Palm) and a bnormal peak latency difference (Median Palm-Ulnar Palm). The Right median/ulnar (palm) com parison nerve showed no response (Median Palm). All remaining nerves (as indicated in the p receding tables) were within normal limits. EMG FINDINGS: All examined muscles (as indicated in the preceding table) showed no evidence of electrical instability. 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 The fi ndings are consistent with a diagnosis of carpal tunnel syndrome. The severity would be gra ded as severe on the right and moderate on the left. There was no electrodiagnostic evidence of ulnar neuropathy, cervical radiculopathy, periph eral neuropathy or brachial plexopathy. Given the severity of the findings I did recommend that the patient consider surgical inter vention for this issue, especially on the right. He will follow-up with his PCP to discuss the results of today s study and additional plan of care. Marvel Alamo MD Fellow, [employer] [employer]. documented in this encounter Plan of Treatment +--------+---------+ + + + | Date | Type | Specialty | Care Team | Description | +--------+---------+ + + + | 02/03/ | Office | Dermatology | Keren Pelaez | | | 2019 | Visit | | [address] | | | | | | [facility] | | | | | | [facility] [address] | | | | | | [phone] | | | | | | | | +--------+---------+ + + + documented as of this encounter Visit Diagnoses + + | Diagnosis | + + | Bilateral carpal tunnel syndrome - Primary Carpal tunnel syndrome | + + documented in this encounter
[~2020-01-26 21:57] MED LIST changes: +CHANTIX1 MG PO; +LISINOPRIL20 MG PO; +PREDNISONE20 MG PO
--- OUTSIDE RECORDS SUMMARY | 2020-01-26 22:00 | XMS ---
PreManage Notification: LANA GOODMAN Security Verse Writer Events No recent Security Events currently on file CRITERIA MET - [facility] CARE PROVIDERS There are no care providers on record at this time. Shar has no Care Guidelines for this patient. Alan VISIT COUNT (12 MO.) 1 GINA Schroeder TOTAL 1 NOTE: Visits indicate total known visits. ED/C VISIT TRACKING (12 MO.) 01/26/2020 21:57 GINA Asher [place] TYPE: Emergency COMPLAINT: - RT SIDE,WRIST PAIN INJUY INPATIENT VISIT TRACKING (12 MO.) No inpatient visits to display in this time frame [email or web address]
[2020-01-26] MEDS ORDERED: GABAPENTIN300 MG PO (22:11)
[2020-01-26] MEDS ORDERED: HYDROCODON-ACE1 EA10 PO (22:12)
[2020-01-26] MEDS ORDERED: NORCO 5-325 TA1 EACH PO (22:57)
== END 2020-01-26 23:05 | disposition home or self-care (01) ==
LOC: ED 21:57
DX: S63.501A Unspecified sprain of right wrist, initial encounter (principal); S20.211A Contusion of right front wall of thorax, initial encounter; W01.10XA Fall on same level from slipping, tripping and stumbling with subsequent striking against unspecified object, initial encounter; I10 Essential (primary) hypertension; J44.9 Chronic obstructive pulmonary disease, unspecified; Z87.891 Personal history of nicotine dependence; Z88.0 Allergy status to penicillin; Z88.8 Allergy status to other drugs, medicaments and biological substances; Z79.899 Other long term (current) drug therapy; Z79.891 Long term (current) use of opiate analgesic
CPT/HCPCS: 71101; 73110; 99284-25

== ENCOUNTER 2022-05-06 23:49 | Emergency (ER) | payer OTHER ==
[~2022-05-06] VITALS: Ht 170.2 cm; Wt 103.0 kg
[~2022-05-06 23:49] MED LIST changes: +GABAPENTIN300 MG PO; +HYDROCODON-ACE1 EA10 PO
--- OUTSIDE RECORDS SUMMARY | 2022-05-06 23:54 | XMS ---
PreManage Notification: LANA GOODMAN Security Delinquent Tax Collector Assistant Events No recent Security Events currently on file CRITERIA MET - [employer] CARE PROVIDERS OLGA KIRBY Physician Agronomy Supervisor 01/28/2020-Current PHONE: [phone] Shar has no Care Guidelines for this patient. EAnahi VISIT COUNT (12 MO.) 1 [facility] TOTAL 1 NOTE: Visits indicate total known visits. ED/UCC VISIT TRACKING (12 MO.) 05/06/2022 23:51 [facility] [place] TYPE: Emergency COMPLAINT: - L SIDE LEG AND ARM PAIN INPATIENT VISIT TRACKING (12 MO.) No inpatient visits to display in this time frame [id number]
[2022-05-07] MEDS ORDERED: FENOFIBRATE40 MG (00:11)
== END 2022-05-07 02:03 | disposition home or self-care (01) ==
LOC: ED 23:49
DX: G89.29 Other chronic pain (principal); M25.572 Pain in left ankle and joints of left foot; M25.562 Pain in left knee; R73.02 Impaired glucose tolerance (oral); I10 Essential (primary) hypertension; J44.9 Chronic obstructive pulmonary disease, unspecified; Z87.891 Personal history of nicotine dependence; Z88.0 Allergy status to penicillin; Z88.6 Allergy status to analgesic agent; Z79.899 Other long term (current) drug therapy
CPT/HCPCS: 36415; 80053; 81001; 83036; 84550; 85025; 85060; 99283; A9270

== ENCOUNTER 2022-05-16 17:18 | Emergency (ER) | payer OTHER ==
[~2022-05-16] VITALS: Ht 170.2 cm; Wt 103.0 kg
[~2022-05-16 17:18] MED LIST changes: +FENOFIBRATE40 MG
--- OUTSIDE RECORDS SUMMARY | 2022-05-16 17:21 | XMS ---
PreManage Notification: LANA GOODMAN Security Veterans' Counselor Events No recent Security Events currently on file CRITERIA MET - [facility] - [facility]its in 30 Days [facility] OLGA KIRBY Physician Financial Center Manager 01/28/2020-Current PHONE: [phone] Shar has no Care Guidelines for this patient. Alan VISIT COUNT (12 MO.) 2 [facility] TOTAL 2 NOTE: Visits indicate total known visits. ED/UCC VISIT TRACKING (12 MO.) 05/16/2022 17:[address] [facility] [place] TYPE: Emergency COMPLAINT: - BLOOD PRESSURE PROBLEM 05/06/2022 23:51 [facility] [place] TYPE: Emergency COMPLAINT: - L SIDE LEG AND ARM PAIN DIAGNOSES: - Allergy status to analgesic agent - Other chronic pain - Allergy status to penicillin - Pain in left knee - Chronic obstructive pulmonary disease, unspecified - Personal history of nicotine dependence - Impaired glucose tolerance (oral) - Other custodial (current) drug therapy - Pain in left ankle and joints of left foot - Essential (primary) hypertension INPATIENT VISIT TRACKING (12 MO.) No inpatient visits to display in this time frame [id number]
[2022-05-16] MEDS ORDERED: METOPROLOL SUC100 MG PO (18:04)
[2022-05-16] MEDS ORDERED: MELOXICAM15 MG PO (18:05)
[2022-05-16] MEDS ORDERED: HYDRALAZINE HCL10 MG PO (19:27)
--- NOTE | 2022-05-17 17:53 | EKG ---
[facility] [address] [place] [address] Signed Sinus rhythm with marked sinus arrhythmia Otherwise normal ECG When compared with ECG of 07-MAR-2017 18:35, Vent. rate has decreased BY 44 BPM Nonspecific T wave abnormality now evident in Lateral leads Confirmed by CHELI LOPEZ MD ([id number]) on 05/17/2022 5:53:26 PM Electronically Signed By: CHELI LOPEZ MD 05/17/22 1753 PATIENT NAME: LANA GOODMAN Electrocardiogram DATE OF : 63 PHYSICIAN: CHELI LOPEZ MD REPORT #: [id number] REPORT IS CONFIDENTIAL AND NOT TO BE RELEASED WITHOUT AUTHORIZATION
== END 2022-05-16 20:30 | disposition home or self-care (01) ==
LOC: ED 17:18
DX: I16.0 Hypertensive urgency (principal); J44.9 Chronic obstructive pulmonary disease, unspecified; Z87.891 Personal history of nicotine dependence; Z88.0 Allergy status to penicillin; Z88.6 Allergy status to analgesic agent; Z79.899 Other long term (current) drug therapy
CPT/HCPCS: 36415; 80053; 85025; 85060; 93005; 93010; 99283-25

== ENCOUNTER 2023-03-16 06:45 | Day surgery (SDC) | payer OTHER ==
[2023-03-12 13:30] VITALS: BP 133/85
[~2023-03-16] VITALS: Ht 170.2 cm; Wt 106.0 kg
[~2023-03-16 06:45] MED LIST changes: +HYDRALAZINE HCL10 MG PO; +LYRICA25 MG PO; +METFORMIN HCL500 M2 PO; +METOPROLOL SUC100 MG PO
[2023-03-16 07:05] VITALS: BP 188/93
[2023-03-16] MEDS ORDERED: EZETIMIBE10 MG PO (07:12)
[2023-03-16 09:10] VITALS: BP 154/97
--- NOTE | 2023-03-16 09:32 | NUR ---
03/16/23 0932 [place] 0758- PT ARRIVES TO PACU, LEFT LATERAL POSITION. O2 AT 6L PER MASK, PT HAS LOUD SNORING RESPIRATIONS. ABLE TO REPOSITION HEAD AND ELEVATED TO DECREASE. O2 SATS REMAIN NORMAL. PT NON REACTIVE TO STIMULUS AT THIS TIME. ABD ROUND, FIRM. ALL MONITORS APPLIED. 0809- DR [place] AT BEDSIDE, PT WAKES TO VERBAL AND TACTILE STIMULUS AT THIS TIME. PT REMAINS AWAKE, ENCOURAGED TO PASS GAS. REPORTS "GAS PAINS" 07/28. DENIES NAUSEA. 0812- PT MOVED TO ROOM AIR AT THIS TIME, HEAD OF BED ELEVATED TO HIGH HERNANDEZ. PT ALERT, BUT DROWSY. ANSWERING QUESTIONS APPROPRIATELY. 0818- PT STATES "I'M AWAKE, I'M READY TO GET UP AND GET DRESSED". ICE WATER PROVIDED TO PT, TOLERATING WELL. 0820- PT UP TO SIDE OF BED, DENIES DIZZINES OR NAUSEA. TOLERATING WELL, PT READY TO GET DRESSED. CALLED FOR A RIDE. 0825- PT ALERT AND ORIENTED, VERBALIZED UNDERSTANDING OF INSTRUCTIONS. SALINE LOCK REMOVED, TIP INTACT, DRESSING APPLIED. PT TRANSFERRED TO WHEEL CHAIR WITHOUT DIFFICULTY, ALL BELONGINGS WITH PT. PT OUT TO CAR VIA WHEEL CHAIR.
--- NOTE | 2023-03-16 10:16 | OR ---
[facility] [address], [place] [address] Signed DATE OF OPERATION: 03/16/2023 SURGEON: Jennie Quintana MD PREOPERATIVE DIAGNOSIS: History of polyps and ongoing constipation. POSTOPERATIVE DIAGNOSIS: Normal colon to cecum. PROCEDURE: Total colonoscopy. ANESTHESIA: Intravenous sedation; propofol, Partha Chino CRNA. INDICATION: This 57-year-old white man is a patient of ORION Rosen. He was referred for recurrent constipation and presumed history of possible polyp or diverticulosis. He underwent colonoscopy by Dr. Juvencio Case approximately five years ago and was under the impression he had at least two polyps. He has had increasing symptoms of constipation. Notably, he does have improvement with fiber supplement. Notably, he takes hydrocodone on a routine basis for arthritic pain. He had problems with nonsteroidals regarding kidney effects and on that basis he is not taking NSAIDs at this time. He continues to work at [employer]. He is admitted to undergo surveillance colonoscopy. He understands the risk of bleeding, infection, and perforation. FINDINGS: The prep was adequate. He had a few scattered diverticula of the sigmoid, but no sign of profound disease; certainly, no stricture or neoplasm. There is no evidence of colitis. DESCRIPTION OF PROCEDURE: The patient was brought to the surgical endoscopy suite, placed in the lateral decubitus position, given intravenous sedation with propofol infusional technique by the compensation and benefits manager. Digital rectal examination was found to be normal. An Olympus video colonoscope was passed in the rectum and manipulated throughout the colon noting minimal diverticular change of the sigmoid. The scope was ultimately advanced to the cecum. Irrigation was undertaken as needed. Upon attaining the cecum, Electronically Signed By: JENNIE QUINTANA MD 03/16/23 1016 PATIENT NAME: LANA GOODMAN OPERATIVE REPORT DATE OF : 63 REPORT #: [id number] PHYSICIAN: JENNIE QUINTANA MD PCP: CECE ROBERTS PA-C REPORT IS CONFIDENTIAL AND NOT TO BE RELEASED WITHOUT AUTHORIZATION [facility] [address], [place] [address] Signed the scope was carefully withdrawn and examination undertaken showing no signs of polyps or colitis. A few minimal diverticular changes were noted in the sigmoid. Retroflexed view of the rectum was normal. The scope was removed and the patient was taken to the recovery room in good condition. CONCLUDING DIAGNOSIS: Minimal diverticular change. PLAN: In addition to his fiber intake, would recommend he consider MiraLAX 1 scoop p.o. daily as long as he will be on opiate medication for pain control. Would recommend repeat colonoscopy in 10 years, sooner if clinically indicated. He will return to the ongoing care of ORION Rosen. MD BIJU Lara/RICO /[id number] cc: Cece Roberts PA-C Copies: CECE ROBERTS PA-C ~ Electronically Signed By: JENNIE QUINTANA MD 03/16/23 [facility] PATIENT NAME: LANA GOODMAN OPERATIVE REPORT DATE OF : 63 REPORT #: [id number] PHYSICIAN: JENNIE QUINTANA MD PCP: CECE ROBERTS PA-C REPORT IS CONFIDENTIAL AND NOT TO BE RELEASED WITHOUT AUTHORIZATION
== END 2023-03-16 08:25 | disposition home or self-care (01) ==
LOC: DS 06:45 → OPS 06:45 → DS 10:15 → OPS 10:45 → DS 10:45
PROVIDERS: ATTEND Surgery
PROC: 0DJD8ZZ Inspection of Lower Intestinal Tract, Via Natural or Artificial Opening Endoscopic (ICD-10-PCS; principal; 2023-03-16 09:20)
DX: K57.30 Diverticulosis of large intestine without perforation or abscess without bleeding (principal); K59.09 Other constipation; F19.11 Other psychoactive substance abuse, in remission; E66.9 Obesity, unspecified; I10 Essential (primary) hypertension; Z68.34 Body mass index [BMI] 34.0-34.9, adult; Z86.010 Personal history of colon polyps
CPT/HCPCS: 00811; J2001; J2704; J7121

== ENCOUNTER 2023-04-04 15:22 | Emergency (ER) | payer OTHER ==
[~2023-04-04] VITALS: Ht 170.2 cm; Wt 105.0 kg
[~2023-04-04 15:22] MED LIST changes: +EZETIMIBE10 MG PO
--- OUTSIDE RECORDS SUMMARY | 2023-04-04 15:25 | XMS ---
PreManage Notification: LANA GOODMAN Security Building Rental Manager Events No recent Security Events currently on file CRITERIA MET - PDM CARE PROVIDERS OLGA KIRBY Physician Manual Plate Filler 01/28/2020-Current PHONE: [phone] -[place]- Dentist: Life Skills Worker [facility] PHONE: [phone] Shar has no Care Guidelines for this patient. Alan VISIT COUNT (12 MO.) 3 GINA Schroeder TOTAL 3 NOTE: Visits indicate total known visits. ED/UCC VISIT TRACKING (12 MO.) 04/04/2023 15:22 [facility] [place] TYPE: Emergency COMPLAINT: - LEG PAIN 05/16/2022 17:18 [facility] [place] TYPE: Emergency COMPLAINT: - BLOOD PRESSURE PROBLEM DIAGNOSES: - Allergy status to analgesic agent - Allergy status to penicillin - Chronic obstructive pulmonary disease, unspecified - Essential (primary) hypertension - Hypertensive urgency - Other avionic technician (current) drug therapy - Personal history of nicotine dependence 05/06/2022 23:[address] [facility] OR TYPE: Emergency COMPLAINT: - L SIDE LEG AND ARM PAIN DIAGNOSES: - Allergy status to analgesic agent - Allergy status to penicillin - Chronic obstructive pulmonary disease, unspecified - Essential (primary) hypertension - Impaired glucose tolerance (oral) - Other chronic pain - Other fpc (current) drug therapy - Pain in left ankle and joints of left foot - Pain in left knee - Personal history of nicotine dependence INPATIENT VISIT TRACKING (12 MO.) No inpatient visits to display in this time frame [email or web address]
[2023-04-04] MEDS ORDERED: PREGABALIN75 MG PO (15:37)
[2023-04-04 16:04] LABS: BASOPHILS 0.9 % (0-2); EOSINOPHILS 3.3 % (0-6); HEMATOCRIT 37.8 % (35.0-50.0); HEMOGLOBIN 12.4 g/dL (12.0-18.0); LYMPHOCYTES 15.8 % (24-44); MCH 29.8 (27-36); MCHC 32.7 g/dl (30-36); MCV 90.9 fl (81-99); MONOCYTES 10.9 % (0-12); NEUTROPHILS 69.1 % (39-80); PLATELET COUNT 118 K/uL (140-440); RBC 4.16 M/ul (4.3-5.7); RDW 13.5 (10.5-15.0)
[2023-04-04 16:18] LABS: ALBUMIN 3.6 g/dL (3.4-5.0); ALBUMIN/GLOBULIN RATIO 1.06 (1.1-2.4); ANION GAP 11.5 (7-21); BILIRUBIN, TOTAL 0.3 ng/dL (0.2-1.0); BUN/CREATININE RATIO 17.34 (6.0-28.6); CALCIUM 9.1 mg/dL (8.5-10.1); CREATININE, SERUM 1.73 mg/dL (0.70-1.30); POTASSIUM 5.5 mmol/L (3.5-5.1)
[2023-04-04 18:31] VITALS: BP 146/81
== END 2023-04-04 18:32 | disposition home or self-care (01) ==
LOC: ED 15:22
PROVIDERS: Emergency Medicine
DX: R25.2 Cramp and spasm (principal); R79.89 Other specified abnormal findings of blood chemistry; I10 Essential (primary) hypertension; J44.9 Chronic obstructive pulmonary disease, unspecified; Z88.0 Allergy status to penicillin; Z88.8 Allergy status to other drugs, medicaments and biological substances; Z79.899 Other long term (current) drug therapy
CPT/HCPCS: 36415; 80053; 82553; 85025; 85060; J7030

== ENCOUNTER 2024-05-10 03:42 | Emergency (ER) | payer OTHER ==
[~2024-05-10] VITALS: Ht 170.2 cm; Wt 104.0 kg
[~2024-05-10 03:42] MED LIST changes: +FENOFIBRATE145 MG PO; -FENOFIBRATE40 MG; +PREGABALIN75 MG PO
[2024-05-10] MEDS ORDERED: ALLOPURINOL100 MG PO (03:56)
[2024-05-10] MEDS ORDERED: HYDROCODON-ACE1 EAC8 PO (03:57)
[2024-05-10] MEDS ORDERED: JARDIANCE10 MG PO (03:58)
[2024-05-10 04:39] LABS: BASOPHILS 1.2 % (0-2); EOSINOPHILS 2.5 % (0-6); HEMATOCRIT 38.8 % (35.0-50.0); HEMOGLOBIN 12.8 g/dL (12.0-18.0); LYMPHOCYTES 19.7 % (24-44); MCH 29.9 (27-36); MCV 90.5 fl (81-99); MONOCYTES 7.8 % (0-12); NEUTROPHILS 68.8 % (39-80); PLATELET COUNT 113 K/uL (140-440); RBC 4.29 M/ul (4.3-5.7); RDW 15.2 (10.5-15.0)
[2024-05-10 04:41] LABS: ALBUMIN 3.7 g/dL (3.4-5.0); ALBUMIN/GLOBULIN RATIO 1.06 (1.1-2.4); ANION GAP 14.1 (7-21); BILIRUBIN, TOTAL 0.4 ng/dL (0.2-1.0); BUN/CREATININE RATIO 17.4 (6.0-28.6); CALCIUM 9.3 mg/dL (8.5-10.1); CREATININE, SERUM 2.47 mg/dL (0.70-1.30); POTASSIUM 5.1 mmol/L (3.5-5.1); PROTEIN, TOTAL 7.2 g/dL (6.4-8.2)
[2024-05-10 05:03] LABS: INFLUENZA B NAA NEGATIVE (NEGATIVE); RESPIRATORY SYNCYTIAL VIR NAA NEGATIVE (NEGATIVE)
[2024-05-10] MEDS ORDERED: LACTATED RINGER'S 1,000 ML IV ONE (06:00)
[2024-05-10 06:19] LABS: LACTIC ACID, BLOOD 0.5 mmol/L (0.4-2.0)
[2024-05-10 10:52] VITALS: BP 102/60
--- NOTE | 2024-05-11 20:18 | EKG ---
[facility] [address] [facility] [place], [place] [address] Signed Normal sinus rhythm Nonspecific T wave abnormality Abnormal ECG When compared with ECG of 12-MAR-2023 13:44, No significant change was found Confirmed by Bev Munoz MD ([id number]) on 05/11/2024 8:18:37 PM Electronically Signed By: BEV MUNOZ MD 05/11/242017 PATIENT NAME: LANA GOODMAN Electrocardiogram DATE OF : 63 PHYSICIAN: BEV MUNOZ MD REPORT #: [id number] REPORT IS CONFIDENTIAL AND NOT TO BE RELEASED WITHOUT AUTHORIZATION
== END 2024-05-10 10:52 | disposition home or self-care (01) ==
LOC: ED 03:42
PROVIDERS: Internal Medicine
DX: R06.09 Other forms of dyspnea (principal); I10 Essential (primary) hypertension; J44.9 Chronic obstructive pulmonary disease, unspecified; Z88.0 Allergy status to penicillin; Z88.8 Allergy status to other drugs, medicaments and biological substances; Z79.899 Other long term (current) drug therapy; Z79.84 Long term (current) use of oral hypoglycemic drugs; Z87.891 Personal history of nicotine dependence
CPT/HCPCS: 36415; 71045; 78582; 80053; 82945; 83605; 83735; 83880; 84157; 84484; 85025; 85060; 85379; 87070; 87075; 87205; 87502; 89051; 93005; 93010; 96360; 99285-25; A9539; A9540; J7121; U0002

== ENCOUNTER 2024-05-14 20:50 | Inpatient (IN) | payer OTHER ==
[~2024-05-14] VITALS: Ht 170.2 cm
[~2024-05-14 20:50] MED LIST changes: +ALLOPURINOL100 MG PO; +HYDROCODON-ACE1 EAC8 PO; +JARDIANCE10 MG PO
--- OUTSIDE RECORDS SUMMARY | 2024-05-14 20:58 | XMS ---
PreManage Notification: LANA GOODMAN Security Assistant Professor Of Music Events No recent Security Events currently on file CRITERIA MET - [facility] - 2 Visits in 30 Days CARE PROVIDERS -, [facility] Dentist: Cider Maker Current [place] PHONE: [phone] -[place]- Dentist: Cider Maker [facility] PHONE: [phone] Shar has no Care Guidelines for this patient. Alan VISIT COUNT (12 MO.) [address] [place] [address] TOTAL 2 NOTE: Visits indicate total known visits. ED/UCC VISIT TRACKING (12 MO.) 05/14/2024 20:51 [facility] [place] TYPE: Emergency COMPLAINT: - VOMITING 05/10/2024 03:42 [facility] [place] TYPE: Emergency COMPLAINT: - DIFFICULTY BREATHING DIAGNOSES: - Allergy status to other drugs, medicaments and biological substances - Allergy status to penicillin - Chronic obstructive pulmonary disease, unspecified - Essential (primary) hypertension - custodial (current) use of oral hypoglycemic drugs - Other forms of dyspnea - Other fpc (current) drug therapy - Personal history of nicotine dependence - Shortness of breath INPATIENT VISIT TRACKING (12 MO.) No inpatient visits to display in this time frame [email or web address]
[2024-05-14 22:23] LABS: ALBUMIN 4.4 g/dL (3.4-5.0); BILIRUBIN, TOTAL 0.5 ng/dL (0.2-1.0)
[2024-05-14] MEDS ORDERED: ondansetron HCL 4 MG/2 ML VIAL IV ONE (22:30)
[2024-05-14 22:40] LABS: BASOPHILS 0.4 % (0-2); EOSINOPHILS 0.3 % (0-6); HEMOGLOBIN 13.9 g/dL (12.0-18.0); LYMPHOCYTES 2.2 % (24-44); MCH 29.4 (27-36); MCHC 32.5 g/dl (30-36); MCV 90.6 fl (81-99); MONOCYTES 6.1 % (0-12); RBC 4.74 M/ul (4.3-5.7); RDW 15.3 (10.5-15.0)
[2024-05-14 22:55] LABS: ALBUMIN/GLOBULIN RATIO 1.07 (1.1-2.4); ANION GAP 15.5 (7-21); BUN/CREATININE RATIO 16.75 (6.0-28.6); CALCIUM 9.4 mg/dL (8.5-10.1); CREATININE, SERUM 3.7 mg/dL (0.70-1.30); PROTEIN, TOTAL 8.5 g/dL (6.4-8.2)
[2024-05-14 23:01] LABS: POTASSIUM 7.5 mmol/L (3.5-5.1)
[2024-05-14 23:04] LABS: PLATELET COUNT 125 K/uL (140-440)
[2024-05-14] MEDS ORDERED: Insulin Regular, Human 100 UNIT/ML ML IV ONE (23:15)
[2024-05-14] MEDS ORDERED: CALCIUM GLUCONATE 1,000 MG/10 ML VIAL IV ONE (23:15)
[2024-05-14] MEDS ORDERED: DEXTROSE 50% 50 ML SYR IV ONE (23:15)
[2024-05-14] MEDS ORDERED: ALBUTEROL SULFATE 0.083% 3 ML VIAL INH ONE (23:15)
[2024-05-14] MEDS ORDERED: SODIUM CHLORIDE 0.9% 1,000 ML IV ONE (23:15)
[2024-05-14] MEDS ORDERED: SODIUM POLYSTYRENE SULFONATE 15 GM/60 ML UDC PO ONE (23:15)
[2024-05-15] VITALS (12 sets, daily range): BP systolic 100–150; BP diastolic 51–81
[2024-05-15 00:30] LABS: BILIRUBIN, URINE NEGATIVE (negative); BLOOD/HGB, URINE NEGATIVE (Negative); KETONE, URINE NEGATIVE (Negative); LEUK ESTERASE, URINE NEGATIVE (negative); NITRITE, URINE NEGATIVE (negative); PH, URINE 5.5 (5-7)
[2024-05-15 01:03] LABS: ANION GAP 15.7 (7-21); BUN/CREATININE RATIO 18.78 (6.0-28.6); CALCIUM 9.5 mg/dL (8.5-10.1); CREATININE, SERUM 3.3 mg/dL (0.70-1.30); POTASSIUM 5.7 mmol/L (3.5-5.1)
[2024-05-15] MEDS ORDERED: SODIUM CHLORIDE 0.9% 1,000 ML IV ONE (01:30)
[2024-05-15] MEDS ORDERED: ondansetron HCL 4 MG/2 ML VIAL IV PRN (02:00)
[2024-05-15] MEDS ORDERED: MORPHINE SULFATE 4 MG/ML VIAL IV PRN (02:00)
[2024-05-15] MEDS ORDERED: SODIUM CHLORIDE 0.9% 1,000 ML IV SCH ×2 (02:00→09:45)
--- NOTE | 2024-05-15 02:30 | NUR ---
bedside report received from ed rn chet pt then transferred from ed to ms room #114 independently, steady on feet. report given to primary rn soledad palma rn to take over pt care at this time. call light in reach.
--- NOTE | 2024-05-15 03:00 | NUR ---
ASSESSMENT DONE. pt RESTING IN THE BED. pt ABD DISTENDED. pt DENIES ANY PAIN AT THIS TIME. pt SBA/INDEPENDENT IN THE RM. ICE WATER PROVDED. pt DENIES ANY ANY OTHER NEEDS AT THIS TIME. CALL LIGHT WITHIN REACH. TELE #7 ON pt.
--- NOTE | 2024-05-15 06:12 | NUR ---
WOOD TECHNOLOGIST CHECKED PT BLOOD SUGAR AT BIOLOGY INSTRUCTOR REQUEST. BLOOD SUGAR IS 155. BIOLOGY INSTRUCTOR NOTIFED. PT ICE WATER REFILLED. PT STATES NO FURTHER NEEDS AND CALL LIGHT WITHIN REACH.
--- NOTE | 2024-05-15 06:17 | NUR ---
IN RM TO CHECK ON pt AND HANG IVF PER ORDER. pt RESTING IN THE BED. WATER REFRESHED. CPOX PLACED ON pt. pt DENIES ANY OTHER NEEDS AT THIS TIME. CALL LIGHT WITHIN REACH. pt REQUESTS TO USE TO THE BR. SBA FOR LINE /TUBE MANAGEMENT.
--- NOTE | 2024-05-15 06:41 | NUR ---
CALL LIGHT ANSWERED. PT NEEDED TO USE BATHROOM. OCEANOGRAPHER ASSISTANT SBA TO BATHROOM. PT INSTRUCTED TO USE BATHROOM CALL LIGHT WHEN FINISHED. CALL LIGHT ANSWERED. PT ALREADY SITTING IN BED. OUTPUT MEASURED. PT CPOX RECONNECTED. PT STATES NO FURTHER NEEDS AT THIS TIME. CALL LIGHT WITHIN REACH.
[2024-05-15] MEDS ORDERED: Insulin Regular, Human 100 UNIT/ML ML SUB-Q SCH ×2 (07:00→08:00)
[2024-05-15] MEDS ORDERED: IBLOOD GLUCOSE TEST STRIP 1 EA TEST VI SCH ×3 (07:00→17:00)
--- NOTE | 2024-05-15 07:15 | NUR ---
REPORT RECEIVED FROM MIC DEJESUS. PT RESTING IN BED WITH EYES CLOSED, RR EVEN AND UNLABORED. CPOX AT BEDSIDE, IVF INFUSING WNL. CALL LIGHT IN REACH.
[2024-05-15] MEDS ORDERED: HYDRALAZINE HCL50 MG PO (08:30)
[2024-05-15] MEDS ORDERED: TORSEMIDE20 MG PO (08:30)
[2024-05-15 08:38] LABS: BASOPHILS 0.4 % (0-2); EOSINOPHILS 1.7 % (0-6); HEMATOCRIT 35.8 % (35.0-50.0); HEMOGLOBIN 11.7 g/dL (12.0-18.0); LYMPHOCYTES 9.4 % (24-44); MCH 29.7 (27-36); MCHC 32.7 g/dl (30-36); MCV 90.8 fl (81-99); MONOCYTES 15.7 % (0-12); NEUTROPHILS 72.8 % (39-80); RBC 3.95 M/ul (4.3-5.7)
[2024-05-15 08:40] LABS: ANION GAP 16.1 (7-21); BUN/CREATININE RATIO 20.8 (6.0-28.6); CALCIUM 8.4 mg/dL (8.5-10.1); CREATININE, SERUM 2.74 mg/dL (0.70-1.30); MAGNESIUM 1.9 mg/dL (1.8-2.4); PHOSPHORUS, INORGANIC 2.2 mg/dL (2.5-4.9); POTASSIUM 6.1 mmol/L (3.5-5.1)
--- NOTE | 2024-05-15 08:43 | NUR ---
TELEMETRY LEADS READJUSTED, PT CONTINUES RESTING WITH EYES CLOSED, RR EVEN AND UNLABORED. CALL LIGHT IN REACH.
[2024-05-15] MEDS ORDERED: SODIUM POLYSTYRENE SULFONATE 15 GM/60 ML UDC PO SCH ×2 (09:00→14:00)
[2024-05-15] MEDS ORDERED: ENOXAPARIN SODIUM 30 MG/0.3 ML SYR SUB-Q SCH (09:00)
[2024-05-15] MEDS ORDERED: METOPROLOL SUCCINATE 100 MG TABCR PO SCH (09:00)
[2024-05-15] MEDS ORDERED: ENOXAPARIN SODIUM 40 MG/0.4 ML SYR SUB-Q SCH (09:00)
--- NOTE | 2024-05-15 09:01 | NUR ---
MORNING MEDICATIONS ADMINISTERED, SEE MAR. PT AMBULATES TO BATHROOM WITH SBA ONLY, STATES HE "MAY BE AWHILE". EDUCATED GLOBAL MANAGER LIGHT IN BATHROOM, PT VERBALIZES UNDERSTANDING. PRIVACY PROVIDED AT THIS TIME.
--- NOTE | 2024-05-15 09:12 | NUR ---
PT AMBULATES TO RECLINER TO EAT BREAKFAST. PTs SISTER ERICH CALLS AT THIS TIME FOR UPDATE, UPDATED SISTER ON PLAN OF CARE PER PT REQUEST. CALL LIGHT AND CELL PHONE IN REACH BY RECLINER, NO OTHER NEEDS AT THIS TIME.
[2024-05-15] MEDS ORDERED: FUROSEMIDE 100 MG/10 ML VIAL IV ONE ×2 (09:45→15:45)
[2024-05-15] MEDS ORDERED: CALCIUM GLUCONATE 2,000 MG in DEXTROSE 5% 100 ML IV SCH (10:00)
[2024-05-15] MEDS ORDERED: Insulin Regular, Human 100 UNIT/ML ML IV ONE (10:00)
[2024-05-15] MEDS ORDERED: DEXTROSE 50% 50 ML SYR IV ONE (10:00)
[2024-05-15] MEDS ORDERED: Calcium Gluconate in NS 1,000 MG/50 ML BAG IV SCH (10:00)
--- NOTE | 2024-05-15 10:22 | NUR ---
Patient was resting quietly with eyes closed. Vitals were taken, blood pressure was low. Reported to MIC Bangura.
--- NOTE | 2024-05-15 10:22 | NUR ---
UP IN RECLINER, ALERT AND ORIENTED. DEMOGRAPHICS VERIFIED. PATIENT LIVES IN HOUSE WITH HIS SIGNIFICANT OTHER, CLINT. THEY HAVE QUITE A FEW STAIRS, BUT PATIENT MANAGES THEM "OK." STATES HE HAS CANE AND CPAP, THOUGH HE DOES NOT USE HIS CPAP BECAUSE IT MAKES IT MORE DIFFICULT TO SLEEP. STATES HE DRIVES. HE HAS NO FINANCIAL CONCERNS. 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 HIS SIGNIFICANT OTHER NEEDS A LOT OF ASSISTANCE. HIS DAUGHTER HAS BEEN COMING IN TO ASSIST THEM. HOWEVER, HE THINKS THEY MAY NEED MORE HELP. DISCUSSED POTENTIAL FOR CAREGIVER WITH DHS ASSISTANCE IF HE OR SIGNIFICANT OTHER QUALIFY. ALSO PROVIDED FAMILY RESOURCES CONTACT INFORMATION FOR HOUSEHOLD NEEDS OR CAREGIVING. DENIES OTHER NEEDS AT THIS TIME.
[2024-05-15] MEDS ORDERED: PHARMACY RENAL DOSE ADJUSTMENT 1 DOSE MISC PO SCH (12:00)
--- NOTE | 2024-05-15 12:11 | NUR ---
UR CLINICAL REVIEW: [facility]- MEETS INPT GUIDELINE FOR RENAL FAILURE, ACUTE EOCCO INPT 05/15/24 @ 0152 ORDER MATCHES REG AUTH PENDING, WILL SEND CLINICALS VIA RIGHTFAX. PLAN TO DC TO HOME WHEN MEDICALLY STABLE. 05/17/24
--- NOTE | 2024-05-15 12:58 | NUR ---
MEDICATION ADMINISTERED, SEE MAR. PT CURRENTLY RESTING IN BED, RR EVEN AND UNLABORED, DENSITOMETRIST AT BEDSIDE. CALL LIGHT IN REACH.
--- NOTE | 2024-05-15 13:39 | NUR ---
RETURNED CALL TO PTs SIGNIFICANT OTHER TO UPDATE ON PLAN OF CARE. PTs SIGNIFICANT OTHER EXPRESSES UNDERSTANDING, REPORTS THAT SHE PLANS TO VISIT TODAY.
--- NOTE | 2024-05-15 14:44 | NUR ---
MEDICATION ADMINISTERED, SEE MAR. PT DRINKING 32oz OF WATER AT THIS TIME IN PREP FOR ULTRASOUND. CALL LIGHT IN REACH, NO OTHER NEEDS AT THIS TIME.
[2024-05-15] MEDS ORDERED: VENTOLIN HFA18 GM INH (14:58)
--- NOTE | 2024-05-15 14:58 | NUR ---
MED REC COMPLETE
--- NOTE | 2024-05-15 15:16 | NUR ---
SECOND ASSESSMENT COMPLETE. PT HAS FINISHED HIS 32oz OF WATER FOR ULTRASOUND AT THIS TIME. BOWEL TONES ACTIVE IN ALL FOUR QUADRANTS, PT HAS CONTINUED HAVING LOOSE STOOLS THROUGHOUT THE DAY. CURRENTLY REPORTS NO SOB. PT REPORTS THAT HE DOES NOT FEEL HIS ABDOMINAL DISTENSION HAS IMPROVED. NO TENDERNESS WITH PALPATION. BILAT AC IVs FLUSH WNL. PT RECEIVES PHONE CALL AT THIS TIME. NO OTHER REQUESTS, CALL LIGHT IN REACH.
[2024-05-15 15:33] LABS: ANION GAP 16.9 (7-21); BUN/CREATININE RATIO 23.27 (6.0-28.6); CALCIUM 8.9 mg/dL (8.5-10.1); CREATININE, SERUM 2.32 mg/dL (0.70-1.30); POTASSIUM 4.9 mmol/L (3.5-5.1)
--- NOTE | 2024-05-15 15:43 | NUR ---
MD NOTIFIED OF PT LAB RESULTS. MD GIVES VERBAL ORDER FOR 60MG IV LASIX NOW, VERIFIED VIA READBACK. PT CURRENTLY GETTING BEDSIDE ULTRASOUND.
[2024-05-15] MEDS ORDERED: GLUCAGON,HUMAN RECOMBINANT 1 MG/ML VIAL SUB-Q PRN (17:00)
[2024-05-15] MEDS ORDERED: DEXTROSE 50% 50 ML SYR IV PRN ×2 (17:00)
[2024-05-15] MEDS ORDERED: IBLOOD GLUCOSE TEST STRIP 1 EA TEST XX PRN (17:00)
[2024-05-15] MEDS ORDERED: INSULIN LISPRO 100 UNIT/ML ML SUB-Q SCH (17:00)
[2024-05-15] MEDS ORDERED: DEXTROSE 5% 1,000 ML IV PRN (17:00)
--- NOTE | 2024-05-15 17:27 | NUR ---
MD GIVES VERBAL ORDER FOR SLIDING SCALE INSULIN SET, VERIFIED VIA READBACK AND PLACED. MD ALSO GIVES ORDER TO D/C IVF AT THIS TIME. PTs SISTER CLINT CALLS, UPDATED ON PLAN OF CARE PER PT. ALL QUESTIONS ANSWERED, PTs SISTER EXPRESSES UNDERSTANDING.
--- NOTE | 2024-05-15 18:52 | NUR ---
PT RESTING IN BED, ACKNOWLEDGES THIS RN WHEN ENTERING ROOM. PT HAS NO REQUESTS AT THIS TIME, CALL LIGHT IN REACH.
--- NOTE | 2024-05-15 19:10 | NUR ---
REPORT RECEIVED FROM TAWANA HAILE. pt RESTING IN THE BED. BOARD UPDATED. CALL LIGHT WITHIN REACH.
--- NOTE | 2024-05-15 20:30 | NUR ---
ASSESSMENT AND VITAL SIGNS DONE. pt RESTING IN BED. BG CHECKED WITH A RESULTS OF 266. SS INSULIN ADMINISTERED. MD CALLED TO VERIFY IF HE WANTED THIS RN TO HOLD pt EVENING DOSE OF KAYEXELATE DUE pt K+ BEING 4.9 WITH MORNING LABS. DISCONTINUED ORDERS AND THIS RN VERIFIED WITH REPEAT BACK METHOD. pt DENIES ANY OTHER NEEDS AT THIS TIME. CALL LIGHT WITHIN REACH.
--- NOTE | 2024-05-15 22:06 | NUR ---
AMMONIA STILL OPERATOR SET A SHOWER FOR PATIENT AND REPLACED GOWN FOR A NEW ONE.
--- NOTE | 2024-05-15 23:38 | NUR ---
pt SITTING IN THE BED. pt STATES SHOWER FELT GOOD. IV'S ASSESSED, WNL. pt DENIES ANY OTHER NEEDS AT THIS TIME. CALL LIGHT WITHIN REACH.
[2024-05-16 01:35] VITALS: BP 130/89
--- NOTE | 2024-05-16 01:38 | NUR ---
DEPORTATION EXAMINER OBTAINED VITALS AND I&O. PT GIVNE WARM BROTH UPON REQUEST. PT STATES NO FURTHER NEEDS AT THIS TIME. CALL LIGHT WITHIN REACH.
[2024-05-16] MEDS ORDERED: SIMETHICONE 80 MG CHEW PO PRN (04:00)
[2024-05-16] MEDS ORDERED: ALBUTEROL SULFATE 0.083% 3 ML VIAL INH PRN (04:00)
[2024-05-16] MEDS ORDERED: LORazepam 0.5 MG TAB PO PRN (04:00)
--- NOTE | 2024-05-16 04:02 | NUR ---
pt CALLED RN INTO RM C/O SOB AND THAT HIS BELLY FELT LIKE IT WAS BLOATED. THIS RN ASSESSED pt AND CALLED THE DR. FOR SOME THAT WILL HELP WITH ANXIETY AND GAS. pt SATTING AT 96%. pt DENIES ANY OTHER NEEDS AT THIS TIME. CALL LIGHT WITHIN REACH.
[2024-05-16 05:46] VITALS: BP 133/85
[2024-05-16 05:48] VITALS: BP 133/85
[2024-05-16 06:02] LABS: BASOPHILS 0.6 % (0-2); EOSINOPHILS 3.6 % (0-6); HEMATOCRIT 35.8 % (35.0-50.0); HEMOGLOBIN 11.8 g/dL (12.0-18.0); LYMPHOCYTES 20.3 % (24-44); MCH 29.7 (27-36); MCHC 32.9 g/dl (30-36); MCV 90.2 fl (81-99); NEUTROPHILS 64.5 % (39-80); PLATELET COUNT 82 K/uL (140-440); RBC 3.97 M/ul (4.3-5.7); RDW 15.1 (10.5-15.0)
[2024-05-16 06:04] LABS: ALBUMIN 3.6 g/dL (3.4-5.0); ALBUMIN/GLOBULIN RATIO 0.97 (1.1-2.4); ANION GAP 15.3 (7-21); BILIRUBIN, TOTAL 0.3 ng/dL (0.2-1.0); BUN/CREATININE RATIO 24.35 (6.0-28.6); CALCIUM 8.7 mg/dL (8.5-10.1); CREATININE, SERUM 1.93 mg/dL (0.70-1.30); MAGNESIUM 1.5 mg/dL (1.8-2.4); POTASSIUM 4.3 mmol/L (3.5-5.1); PROTEIN, TOTAL 7.3 g/dL (6.4-8.2)
--- NOTE | 2024-05-16 06:20 | NUR ---
VITAL SIGNS AND ASSESSMENT DONE. pt STATES HE IS FEELING BETTER NOW THAT THE MEDS ARE SETTLING IN AND HE TOOK A WALK. pt DENIES ANY OTHER NEEDS AT THIS TIME. CALL LIGHT WITHIN REACH.
--- NOTE | 2024-05-16 07:05 | NUR ---
REPORT RECEIVED FROM MIC DEJESUS. PT RESTING IN BED WITH HOB ELEVATED, RR EVEN AND UNLABORED, CPOX AT BEDSIDE, CALL LIGHT IN REACH.
[2024-05-16] MEDS ORDERED: MAGNESIUM SULFATE 2 GM/50 ML BAG IV SCH (08:15)
--- NOTE | 2024-05-16 08:37 | NUR ---
MEDICATIONS ADMINISTERED, SEE MAR. PT REPORTS HE SLEPT VERY POORLY LAST NIGHT, HE IS READY TO REST AWHILE. REPORTS L ANKLE PAIN IS A 4/10 AT THIS TIME BUT DENIES INTERVENTIONS. NO OTHER REQUESTS, CALL LIGHT IN REACH.
[2024-05-16] MEDS ORDERED: ENOXAPARIN SODIUM 40 MG/0.4 ML SYR SUB-Q SCH (09:00)
--- NOTE | 2024-05-16 09:13 | NUR ---
MD PRESENT IN ROOM TO ASSESS AND DISCUSS PLAN OF CARE WITH PT. PT VERBALIZES UNDERSTANDING. PT HAS NO REQUESTS AT THIS TIME, IV MEDICATION INFUSING WNL, CALL LIGHT IN REACH.
[2024-05-16 10:49] VITALS: BP 129/76
[2024-05-16 10:53] VITALS: BP 129/76
--- NOTE | 2024-05-16 10:54 | NUR ---
ASSESSMENT COMPLETE. PT IS RESTING IN BED SPEAKING ON THE PHONE WITH A FRIEND AT THIS TIME. PT EXPRESSES EXCITEMENT ABOUT GOING HOME, HE IS LOOKING FORWARD TO THIS, STATES HIS RIDE IS COMING AT NOON. HIS ABDOMEN IS SOFTER TODAY THAN YESTERDAY, THOUGH STILL DISTENDED. PT REPORTS HE IS FEELING "A LOT BETTER" AND CONTINUED HAVING BOWEL MOVEMENTS AND GAS THROUGH THE NIGHT. HE DENIES NAUSEA OR PAIN AT THIS TIME. BILAT AC IVs FLUSH WNL. NO OTHER REQUESTS AT THIS TIME, CALL LIGHT IN REACH.
[2024-05-16 11:31] VITALS: BP 131/82
--- NOTE | 2024-05-16 12:02 | NUR ---
THIS RD MET WITH PATIENT TO DISCUSS NUTRITION FOR DIABETES. HE LIVES WITH HIS BUT HIS WAS NOT PRESENT THIS MORNING. PATIENT THINKS HIS LAST A1C WAS 6.7%. HE WAS BORDERLINE DIABETIC FOR A COUPLE OF YEARS. HE SAID HE KNOWS HE HAS "SET HIMSELF UP FOR FAILURE" DURING THE LAST SEVERAL MONTHS. HE HAD A KNEE REPLACEMENT IN DECEMBER AND DID PHYSICAL THERAPY BUT THAT HAS BEEN THE ONLY EXERCISE FOR HIM. HE DRINKS REGULAR POP WHICH HE KNOWS HE SHOULDN'T DO ANYMORE. I SUGGESTED HE SWITCH TO DIET. HE EATS 3 MEALS A DAY. HE EATS LATE AT NIGHT WHICH DOESN'T MAKE HIM FEEL GOOD. HE SEEMED INTERESTED IN PURSUING BARIATRIC SURGERY FOR WEIGHT LOSS. I PROVIDED HIM WITH A DIABETES PLATE METHOD PICTURE, LIST OF CARBOHYDRATES IN FOODS, AND A LOWER CARB SNACK LIST. REMINDED HIM THE DIFFERENCE BETWEEN HEALTHIER CARBS SUCH OATMEAL AND FRESH FRUIT COMPARED TO CANDY AND REGULAR POP. THE LIST OF CARBOHYDRATES IN FOODS HAS WHAT 1 PORTION IS WHICH WILL HELP HIM REDUCE HIS PORTIONS. I ALSO EXPLAINED STARCHY VS NON-STARCHY VEGGIES AND FOR HIM TO EAT MORE NON-STARCHY VEGGIES WITH MEALS. HE APPRECIATED MY TIME. HE SEEMS MOTIVATED TO MAKE CHANGES IN HIS EATING HABITS BY REDUCING HIS PORTIONS, NOT EATING SO LATE AT NIGHT, AND NOT DRINKING REGULAR POP. MY CARD WITH MY CONTACT INFO PROVIDED. LET PATIENT KNOW WE DO OFFER OUTPATIENT NUTRITIONAL COUNSELING AND DIABETES EDUCATION HERE, WE JUST NEED A REFERRAL FROM HIS PCP. PATIENT HAS NO FURTHER QUESTIONS AT THIS TIME.
== END 2024-05-16 12:23 | disposition home or self-care (01) | DRG 641 ==
LOC: ED 20:50 → MS 05-15 02:10
PROVIDERS: Family Medicine; ADMIT Internal Medicine; ATTEND Internal Medicine
DX: E87.5 Hyperkalemia (principal); N17.9 Acute kidney failure, unspecified; I12.9 Hypertensive chronic kidney disease with stage 1 through stage 4 chronic kidney disease, or unspecified chronic kidney disease; N18.9 Chronic kidney disease, unspecified; R73.03 Prediabetes; E66.9 Obesity, unspecified; J44.9 Chronic obstructive pulmonary disease, unspecified; D69.6 Thrombocytopenia, unspecified; Z88.0 Allergy status to penicillin; Z88.6 Allergy status to analgesic agent; Z88.8 Allergy status to other drugs, medicaments and biological substances; Z79.891 Long term (current) use of opiate analgesic; Z79.899 Other long term (current) drug therapy; Z98.890 Other specified postprocedural states; K76.0 Fatty (change of) liver, not elsewhere classified; Z79.84 Long term (current) use of oral hypoglycemic drugs; Z68.36 Body mass index [BMI] 36.0-36.9, adult
CPT/HCPCS: 36415; 71045; 74176; 76700; 76775; 80048; 80053; 81003; 83690; 83735; 84100; 85025; 85060; 93306; 94640; 94667; 94668; 94762; 96361; 96374; 96375; 99285-25; J0612; J1650; J1815; J1940; J2405; J3475; J7030

== ENCOUNTER 2024-05-28 13:11 | Emergency (ER) | payer OTHER ==
[~2024-05-28] VITALS: Ht 170.2 cm; Wt 104.8 kg
[~2024-05-28 13:11] MED LIST changes: +HYDRALAZINE HCL50 MG PO; +TORSEMIDE20 MG PO; +VENTOLIN HFA18 GM INH
--- OUTSIDE RECORDS SUMMARY | 2024-05-28 13:18 | XMS ---
PreManage Notification: LANA GOODMAN Security Biomedical Engineering Internship Events No recent Security Events currently on file CRITERIA MET - [facility] - 2 Visits in 30 Days CARE PROVIDERS -, [facility] Dentist: Probation Officer Current [place] PHONE: [phone] -[place]- Dentist: Probation Officer [facility] PHONE: [phone] Shar has no Care Guidelines for this patient. Alan VISIT COUNT (12 MO.) [address] [place] [address] TOTAL 3 NOTE: Visits indicate total known visits. 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) drug therapy - Personal history of nicotine dependence - Shortness of breath INPATIENT VISIT TRACKING (12 MO.) 05/15/2024 02:10 [facility] [place] TYPE: Medical Surgical COMPLAINT: - HYPERKALEMIA, ACUTE ON CHRONIC RENAL FAILURE DIAGNOSES: - Acute kidney failure, unspecified - Allergy status to analgesic agent - Allergy status to analgesic agent - Allergy status to other drugs, medicaments and biological substances - Allergy status to other drugs, medicaments and biological substances - Allergy status to penicillin - Allergy status to penicillin - Body mass index [BMI] 36.0-36.9, adult - Body mass index [BMI] 36.0-36.9, adult - Chronic kidney disease, unspecified - Chronic kidney disease, unspecified - Chronic obstructive pulmonary disease, unspecified - Chronic obstructive pulmonary disease, unspecified - Fatty (change of) liver, not elsewhere classified - Fatty (change of) liver, not elsewhere classified - Hyperkalemia - Hyperkalemia - Hypertensive chronic kidney disease with stage 1 through stage 4 chronic kidney disease, or unspecified chronic kidney disease - Hypertensive chronic kidney disease with stage 1 through stage 4 chronic kidney disease, or unspecified chronic kidney disease - USP (current) use of opiate analgesic - terminal superintendent (current) use of opiate analgesic - USP (current) use of oral hypoglycemic drugs - terminal superintendent (current) use of oral hypoglycemic drugs - Obesity, unspecified - Obesity, unspecified - Other watermelon harvesting supervisor (current) drug therapy - Other assisted (current) drug therapy - Other specified postprocedural states - Other specified postprocedural states - Prediabetes - Prediabetes - Thrombocytopenia, unspecified - Thrombocytopenia, unspecified [email or web address]
[2024-05-28] MEDS ORDERED: HYDRALAZINE HCL50 MG PO (13:37)
[2024-05-28 14:04] LABS: BASOPHILS 0.7 % (0-2); EOSINOPHILS 1.9 % (0-6); HEMATOCRIT 39.8 % (35.0-50.0); HEMOGLOBIN 13.2 g/dL (12.0-18.0); LYMPHOCYTES 15.2 % (24-44); MCH 29.4 (27-36); MCHC 33.1 g/dl (30-36); MCV 88.8 fl (81-99); MONOCYTES 5.2 % (0-12); RBC 4.48 M/ul (4.3-5.7); RDW 15.1 (10.5-15.0)
[2024-05-28 14:10] LABS: ALBUMIN 4.1 g/dL (3.4-5.0); ALBUMIN/GLOBULIN RATIO 1.05 (1.1-2.4); BILIRUBIN, TOTAL 0.4 ng/dL (0.2-1.0); BUN/CREATININE RATIO 16.47 (6.0-28.6); CALCIUM 9.8 mg/dL (8.5-10.1); CREATININE, SERUM 1.7 mg/dL (0.70-1.30); MAGNESIUM 2.2 mg/dL (1.8-2.4)
[2024-05-28 14:21] LABS: PLATELET COUNT 107 K/uL (140-440)
[2024-05-28 16:22] VITALS: BP 126/74
--- NOTE | 2024-05-29 22:13 | EKG ---
[facility] [address] [place] [address] Signed Sinus rhythm with marked sinus arrhythmia Nonspecific T wave abnormality Abnormal ECG When compared with ECG of 10-MAY-2024 04:05, No significant change was found Confirmed by Adrien Hess MD () on 05/29/2024 10:13:16 PM Electronically Signed By: ADRIEN HESS MD 05/29/24 2213 PATIENT NAME: LANA GOODMAN Electrocardiogram DATE OF : 63 PHYSICIAN: ADRIEN HESS MD REPORT #: [id number] REPORT IS CONFIDENTIAL AND NOT TO BE RELEASED WITHOUT AUTHORIZATION
== END 2024-05-28 16:22 | disposition home or self-care (01) ==
LOC: ED 13:11
PROVIDERS: Emergency Medicine
DX: R06.01 Orthopnea (principal); J44.9 Chronic obstructive pulmonary disease, unspecified; I10 Essential (primary) hypertension; Z87.891 Personal history of nicotine dependence; Z88.0 Allergy status to penicillin; Z88.6 Allergy status to analgesic agent; Z88.8 Allergy status to other drugs, medicaments and biological substances; Z79.899 Other long term (current) drug therapy
CPT/HCPCS: 36415; 71045; 80053; 83735; 83880; 84484; 85025; 85060; 93005; 93010; 99285-25

== ENCOUNTER 2024-06-18 22:40 | Emergency (ER) | payer OTHER ==
[~2024-06-18] VITALS: Ht 170.2 cm; Wt 103.0 kg
--- OUTSIDE RECORDS SUMMARY | 2024-06-18 22:47 | XMS ---
PreManage Notification: LANA GOODMAN Security Four Slide Operator Events No recent Security Events currently on file CRITERIA MET - [facility] - 2 Visits in 30 Days CARE PROVIDERS - [facility] Dentist: Solution Engineer Current [place] PHONE: [phone] -[place]- Dentist: Solution Engineer [facility] PHONE: [phone] Shar has no Care Guidelines for this patient. EAnahi VISIT COUNT (12 MO.) [address] [place] [address] TOTAL 4 NOTE: Visits indicate total known visits. ED/UCC VISIT TRACKING (12 MO.) 06/18/2024 22:40 [facility] [place] TYPE: Emergency COMPLAINT: - SHORTNESS OF BREATH 05/28/2024 13:11 [facility] [place] TYPE: Emergency COMPLAINT: - FATIGUE DIAGNOSES: - Allergy status to analgesic agent - Allergy status to other drugs, medicaments and biological substances - Allergy status to penicillin - Chronic obstructive pulmonary disease, unspecified - Essential (primary) hypertension - Orthopnea - Other half-way (current) drug therapy - Personal history of nicotine dependence - Shortness of breath 05/14/2024 20:51 [facility] [place] TYPE: Emergency COMPLAINT: - VOMITING 05/10/2024 03:42 [facility] [place] TYPE: Emergency COMPLAINT: - DIFFICULTY BREATHING DIAGNOSES: - Allergy status to other drugs, medicaments and biological substances - Allergy status to penicillin - Chronic obstructive pulmonary disease, unspecified - Essential (primary) hypertension - meterman (current) use of oral hypoglycemic drugs - Other forms of dyspnea - Other half-way (current) drug therapy - Personal history of [...] disease, or unspecified chronic kidney disease - residential (current) use of opiate analgesic - meterman (current) use of opiate analgesic - residential (current) use of oral hypoglycemic drugs - meterman (current) use of oral hypoglycemic drugs - Obesity, unspecified - Obesity, unspecified - Other half-way (current) drug therapy - Other half-way (current) drug therapy - Other specified postprocedural states - Other specified postprocedural states - Prediabetes - Prediabetes - Thrombocytopenia, unspecified - Thrombocytopenia, unspecified [email or web address]
[2024-06-18] MEDS ORDERED: DOXYCYCLINE HY100 MG PO (22:52)
[2024-06-18] MEDS ORDERED: ALBUTEROL/IPRATROPIUM 3 ML NEB INH PRN (23:00)
[2024-06-18 23:14] LABS: BASOPHILS 0.7 % (0-2); EOSINOPHILS 0.3 % (0-6); HEMATOCRIT 41.1 % (35.0-50.0); HEMOGLOBIN 13.3 g/dL (12.0-18.0); MCHC 32.4 g/dl (30-36); MCV 89.5 fl (81-99); MONOCYTES 2.5 % (0-12); NEUTROPHILS 89.5 % (39-80); PLATELET COUNT 191 K/uL (140-440); RBC 4.59 M/ul (4.3-5.7); RDW 14.3 (10.5-15.0)
[2024-06-18 23:21] LABS: ALBUMIN 3.5 g/dL (3.4-5.0); ALBUMIN/GLOBULIN RATIO 0.83 (1.1-2.4); ANION GAP 13.6 (7-21); BILIRUBIN, TOTAL 0.3 ng/dL (0.2-1.0); BUN/CREATININE RATIO 14.63 (6.0-28.6); CALCIUM 10.1 mg/dL (8.5-10.1); CREATININE, SERUM 2.05 mg/dL (0.70-1.30); MAGNESIUM 1.8 mg/dL (1.8-2.4); POTASSIUM 4.6 mmol/L (3.5-5.1); PROTEIN, TOTAL 7.7 g/dL (6.4-8.2)
[2024-06-18 23:27] LABS: SMEAR REVIEW BLOOD SEE COMMENTS
[2024-06-18] MEDS ORDERED: methylPREDNISolone SOD SUCC 125 MG/2 ML VIAL IV ONE (23:45)
[2024-06-18] MEDS ORDERED: ALBUTEROL SULFATE 0.5% 2.5 MG/0.5 ML VIAL INH ONE (23:45)
[2024-06-19 00:09] LABS: CORONAVIRUS COVID-19 AG NEGATIVE (NEGATIVE); INFLUENZA A AG NEGATIVE (NEGATIVE); INFLUENZA B AG NEGATIVE (NEGATIVE)
[2024-06-19] MEDS ORDERED: PREDNISONE20 MG PO (01:06)
[2024-06-19 01:31] VITALS: BP 184/116
--- NOTE | 2024-06-20 21:49 | EKG ---
[facility] [address] [facility] [place] [address] Signed Normal sinus rhythm with sinus arrhythmia Normal ECG When compared with ECG of 28-MAY-2024 14:04, No significant change was found Confirmed by Betina Ward DO ([id number]) on 06/20/2024 9:49:08 PM Electronically Signed By: BETINA WARD DO 06/20/24 2149 PATIENT NAME: LANA GOODMAN Electrocardiogram DATE OF : 63 PHYSICIAN: BETINA WARD DO REPORT #: [id number] REPORT IS CONFIDENTIAL AND NOT TO BE RELEASED WITHOUT AUTHORIZATION
== END 2024-06-19 01:31 | disposition home or self-care (01) ==
LOC: ED 22:40
PROVIDERS: Internal Medicine
DX: J44.1 Chronic obstructive pulmonary disease with (acute) exacerbation (principal); I11.0 Hypertensive heart disease with heart failure; I50.9 Heart failure, unspecified; Z87.891 Personal history of nicotine dependence; Z88.0 Allergy status to penicillin; Z88.6 Allergy status to analgesic agent; Z88.8 Allergy status to other drugs, medicaments and biological substances; Z79.84 Long term (current) use of oral hypoglycemic drugs; Z79.899 Other long term (current) drug therapy
CPT/HCPCS: 36415; 71045; 80053; 83735; 83880; 84484; 85025; 85060; 93005; 93010; 94640; 94644; 96374; 99285-25; J2919

== ENCOUNTER 2024-07-19 05:32 | Emergency (ER) | payer OTHER ==
[~2024-07-19] VITALS: Ht 170.2 cm; Wt 103.0 kg
[~2024-07-19 05:32] MED LIST changes: +DOXYCYCLINE HY100 MG PO
[2024-07-19] MEDS ORDERED: methylPREDNISolone SOD SUCC 125 MG/2 ML VIAL IV ONE (05:45)
[2024-07-19] MEDS ORDERED: LORazepam 2 MG/ML VIAL IV ONE (05:45)
[2024-07-19] MEDS ORDERED: ALBUTEROL/IPRATROPIUM 3 ML NEB INH ONE (05:45)
[2024-07-19 06:13] LABS: BASOPHILS 0.7 % (0-2); EOSINOPHILS 2.8 % (0-6); HEMATOCRIT 41.4 % (35.0-50.0); HEMOGLOBIN 14.1 g/dL (12.0-18.0); LYMPHOCYTES 13.9 % (24-44); MCV 88.1 fl (81-99); MONOCYTES 8.7 % (0-12); NEUTROPHILS 73.9 % (39-80); RDW 14.3 (10.5-15.0)
[2024-07-19] MEDS ORDERED: ALBUTEROL2.5 MG/3 M INH (06:14)
[2024-07-19 06:26] LABS: ALBUMIN/GLOBULIN RATIO 1.05 (1.1-2.4); ANION GAP 12.8 (7-21); BILIRUBIN, TOTAL 0.6 mg/dL (0.2-1.0); BUN/CREATININE RATIO 15.02 (6.0-28.6); CALCIUM 9.8 mg/dL (8.5-10.1); CREATININE, SERUM 1.73 mg/dL (0.70-1.30); POTASSIUM 3.8 mmol/L (3.5-5.1); PROTEIN, TOTAL 7.8 g/dL (6.4-8.2)
[2024-07-19 06:29] LABS: PLATELET COUNT 183 K/uL (140-440)
[2024-07-19] MEDS ORDERED: TORSEMIDE20 MG PO (06:41)
[2024-07-19] MEDS ORDERED: FUROSEMIDE 20 MG/2 ML VIAL IV ONE (06:45)
[2024-07-19] MEDS ORDERED: methylPREDNISolone 4 MG HOME.PACK PO ONE (06:45)
[2024-07-19] MEDS ORDERED: AZITHROMYCIN 250 MG HOME.PACK PO ONE (06:45)
[2024-07-19] MEDS ORDERED: LORazepam 1 MG HOME.PACK PO ONE (06:45)
[2024-07-19 07:07] VITALS: BP 155/128
== END 2024-07-19 07:07 | disposition home or self-care (01) ==
LOC: ED 05:32
PROVIDERS: Family Medicine
DX: J44.1 Chronic obstructive pulmonary disease with (acute) exacerbation (principal); I11.0 Hypertensive heart disease with heart failure; I50.9 Heart failure, unspecified; Z87.891 Personal history of nicotine dependence; Z88.0 Allergy status to penicillin; Z88.6 Allergy status to analgesic agent; Z88.8 Allergy status to other drugs, medicaments and biological substances; Z79.84 Long term (current) use of oral hypoglycemic drugs; Z79.899 Other long term (current) drug therapy
CPT/HCPCS: 36415; 71045; 80053; 83880; 85025; 85060; 94640; 96374; 96375; 99285-25; J1940; J2060; J2919

== ENCOUNTER 2024-08-07 04:47 | Emergency (ER) | payer OTHER ==
[~2024-08-07] VITALS: Ht 170.2 cm; Wt 98.5 kg
[~2024-08-07 04:47] MED LIST changes: +ALBUTEROL2.5 MG/3 M INH
--- OUTSIDE RECORDS SUMMARY | 2024-08-07 04:54 | XMS ---
PreManage Notification: LANA GOODMAN Security Vascular Surgery Physician Events No recent Security Events currently on file CRITERIA MET - 6 ED Visits in 6 Months - [facility] - 2 Visits in 30 Days CARE PROVIDERS -, [facility] Dentist: [employer] [facility] PHONE: [phone] -, Marilynn- Dentist: [employer] [facility] PHONE: [phone] Shar has no Care Guidelines for this patient. E.DJosie VISIT COUNT (12 MO.) [address] [place] [address] TOTAL 6 NOTE: Visits indicate total known visits. ED/UCC VISIT TRACKING (12 MO.) 08/07/2024 04:47 [facility] TYPE: Emergency COMPLAINT: - VOMITING 07/19/2024 05:32 [facility] TYPE: Emergency COMPLAINT: - SOB DIAGNOSES: - Allergy status to analgesic agent - Allergy status to other drugs, medicaments and biological substances - Allergy status to penicillin - Chronic obstructive pulmonary disease with (acute) exacerbation - Heart failure, unspecified - Hypertensive heart disease with heart failure - long-term (current) use of oral hypoglycemic drugs - Other prison (current) drug therapy - Personal history of nicotine dependence - Shortness of breath 06/18/2024 22:40 [facility] TYPE: Emergency COMPLAINT: - SHORTNESS OF BREATH DIAGNOSES: - Allergy status to analgesic agent - Allergy status to other drugs, medicaments and biological substances - Allergy status to penicillin - Chronic obstructive pulmonary disease with (acute) exacerbation - Heart failure, unspecified - Hypertensive heart disease with heart failure - long-term (current) use of oral hypoglycemic drugs - Other prison (current) drug therapy - Personal history of nicotine dependence - Shortness of breath 05/28/2024 13:11 [facility] TYPE: Emergency COMPLAINT: - FATIGUE DIAGNOSES: - Allergy status to analgesic agent - Allergy status to other drugs, medicaments and biological substances - Allergy status to penicillin - Chronic obstructive pulmonary disease, unspecified - Essential (primary) hypertension - Orthopnea - 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 - Personal history of nicotine dependence - Shortness of breath 05/14/2024 20:51 [facility] TYPE: Emergency COMPLAINT: - VOMITING 05/10/2024 03:42 [facility] TYPE: Emergency COMPLAINT: - DIFFICULTY BREATHING DIAGNOSES: - Allergy status to other drugs, medicaments and biological substances - Allergy status to penicillin - Chronic obstructive pulmonary disease, unspecified - Essential (primary) hypertension - long-term (current) use of oral hypoglycemic drugs - Other forms of dyspnea - Other prison (current) drug therapy - Personal history of [...] disease, or unspecified chronic kidney disease - long-term (current) use of opiate analgesic - long-term (current) use of opiate analgesic - long-term (current) use of oral hypoglycemic drugs - 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
[2024-08-07 05:07] LABS: BASOPHILS 0.2 % (0-2); EOSINOPHILS 0.5 % (0-6); HEMATOCRIT 48.1 % (35.0-50.0); HEMOGLOBIN 15.9 g/dL (12.0-18.0); LYMPHOCYTES 5.4 % (24-44); MCH 29.3 (27-36); MCV 88.8 fl (81-99); NEUTROPHILS 86.9 % (39-80); RBC 5.42 M/ul (4.3-5.7); RDW 14.8 (10.5-15.0)
[2024-08-07] MEDS ORDERED: LORAZEPAM1 MG PO (05:07)
[2024-08-07] MEDS ORDERED: ondansetron HCL 4 MG/2 ML VIAL IV ONE (05:15)
[2024-08-07] MEDS ORDERED: FAMOTIDINE 20 MG/ 2 ML VIAL IV ONE (05:15)
[2024-08-07] MEDS ORDERED: EPIPEN AUTO INJECTOR 0.3 MG/0.3 ML ML IM ONE (05:15)
[2024-08-07] MEDS ORDERED: methylPREDNISolone SOD SUCC 125 MG/2 ML VIAL IV ONE (05:15)
[2024-08-07] MEDS ORDERED: LACTATED RINGER'S 1,000 ML IV ONE ×2 (05:15→07:00)
[2024-08-07] MEDS ORDERED: diphenhydrAMINE HCL 50 MG/ML VIAL IV ONE (05:15)
[2024-08-07 05:26] LABS: PLATELET COUNT 143 K/uL (140-440)
[2024-08-07] MEDS ORDERED: CEFTRIAXONE SODIUM 2 GM VIAL ONE (05:30)
[2024-08-07] MEDS ORDERED: CEFTRIAXONE SODIUM 2 GM in SODIUM CHLORIDE 0.9% 100 ML IV ONE (05:30)
[2024-08-07 05:32] LABS: ALBUMIN 4.1 g/dL (3.4-5.0); ALBUMIN/GLOBULIN RATIO 1.05 (1.1-2.4); ANION GAP 19.1 (7-21); BILIRUBIN, TOTAL 0.6 mg/dL (0.2-1.0); BUN/CREATININE RATIO 15.34 (6.0-28.6); CALCIUM 9.6 mg/dL (8.5-10.1); CREATININE, SERUM 2.02 mg/dL (0.70-1.30); MAGNESIUM 1.8 mg/dL (1.8-2.4); POTASSIUM 4.1 mmol/L (3.5-5.1)
[2024-08-07 05:39] LABS: ALCOHOL, MEDICAL <3 ng/dL (<3); TSH, 3RD GENERATION 0.971 uIU/mL (0.358-3.740)
[2024-08-07 05:45] LABS: PROTIME 13.1 Sec (11.2-14.2)
[2024-08-07 05:55] LABS: PARTIAL THROMBOPLASTIN TIME 25.6 Sec (22.9-41.3)
[2024-08-07 05:59] LABS: CORONAVIRUS COVID-19 AG NEGATIVE (NEGATIVE); INFLUENZA A AG NEGATIVE (NEGATIVE); INFLUENZA B AG NEGATIVE (NEGATIVE)
[2024-08-07 06:02] LABS: LACTIC ACID, BLOOD 2.1 mmol/L (0.4-2.0)
[2024-08-07 07:12] LABS: LACTIC ACID, BLOOD 2.2 mmol/L (0.4-2.0)
[2024-08-07 07:48] LABS: ANION GAP 14.3 (7-21); BUN/CREATININE RATIO 16.57 (6.0-28.6); CALCIUM 8.9 mg/dL (8.5-10.1); CREATININE, SERUM 1.81 mg/dL (0.70-1.30); POTASSIUM 4.3 mmol/L (3.5-5.1)
[2024-08-07] MEDS ORDERED: ONDANSETRON ODT4 MG PO (10:21)
[2024-08-07 10:30] VITALS: BP 142/95
--- NOTE | 2024-08-08 11:08 | EKG ---
[facility] [address] [facility] [place] [address] Signed Sinus tachycardia Otherwise normal ECG When compared with ECG of 18-JUN-2024 22:54, Vent. rate has increased BY 51 BPM Nonspecific T wave abnormality no longer evident in Lateral leads Confirmed by Bev Munoz MD ([id number]) on 08/08/2024 11:08:41 AM Electronically Signed By: BEV MUNOZ MD 08/08/24 1108 PATIENT NAME: LANA GOODMAN Electrocardiogram DATE OF : 63 PHYSICIAN: BEV MUNOZ MD REPORT #: [id number] REPORT IS CONFIDENTIAL AND NOT TO BE RELEASED WITHOUT AUTHORIZATION
== END 2024-08-07 10:30 | disposition home or self-care (01) ==
LOC: ED 04:47
PROVIDERS: Emergency Medicine; Internal Medicine
DX: T78.2XXA Anaphylactic shock, unspecified, initial encounter (principal); R11.2 Nausea with vomiting, unspecified; R19.7 Diarrhea, unspecified; I10 Essential (primary) hypertension; J44.9 Chronic obstructive pulmonary disease, unspecified; Z79.899 Other long term (current) drug therapy; Z88.0 Allergy status to penicillin; Z88.6 Allergy status to analgesic agent; Z88.8 Allergy status to other drugs, medicaments and biological substances
CPT/HCPCS: 36415; 71045; 74177; 80048; 80053; 80307; 83605; 83690; 83735; 83880; 84443; 84484; 85025; 85060; 85610; 85730; 87040; 93005; 93010; 96361; 96375; 99284-25; G0480; J0171; J0696; J1200; J2405; J2919; J7121; Q9967